=== PATIENT | female | born 1950 | race Caucasian/White ===

== ENCOUNTER 2019-10-01 06:27 | Inpatient (IN) | payer MEDICARE, OTHER, SELFPAY ==
[2019-10-01] VITALS (49 sets, daily range): BP systolic 86–191; BP diastolic 42–109; PULSE 68–117; RESP 12–27; TEMP 36.7–37.1; O2SAT 93–100
--- NOTE | 2019-10-01 06:35 | XR_ITS ---
WS: [id number] CHEST XRAY TECHNIQUE: Portable chest. CLINICAL INFORMATION: resp failure COMPARISON: August 22, 2018 FINDINGS: Endotracheal tube with tip above the marcy measuring 2.4 CCM. Enteric tube with tip below the diaphragm. Heart: Cardiomegaly. Aortic calcification. Lungs: Interstitial edema/interstitial infiltrates right greater than left. No focal consolidation or significant pleural fluid. Bones: Normal visualized bony structures. XR/XR chest 1V portable [id number] IMPRESSION: 1. Endotracheal tube 2.4 cm above the marcy. Enteric tube with tip below the diaphragm. 2. Right greater than left interstitial edema/interstitial infiltrates. Recomm end correlation for CHF. 3. No focal pneumonia.
--- NOTE | 2019-10-01 06:36 | ECG_ITS ---
Measurements Intervals [place] Rate: 69 P: 34 LA: 147 QRS: 9 QRSD: 158 T: 46 QT: 458 QTc: 491 SINUS RHYTHM INTRAVENTRICULAR CONDUCTION DELAY [130+ ms QRS DURATION] Compared to ECG 08/22/2018 17:11:35 Intraventricular conduction delay now present Myocardial infarct finding no longer present Electronically Signed On 10-01-2019 18:00:49 CDT by Evie Gaffney M.D. [id number]
--- NOTE | 2019-10-01 06:38 | W.ED.SOB ---
HPI - SOB/Dyspnea General: Chief Complaint: Shortness of Breath/Dyspnea Stated Complaint: RESP DISTRESS Time Seen by Provider: 10/01/19 06:35 History of Present Illness: HPI Narrative: Patient arrives via EMS. She reportedly went to a neighbor's home and said she could not breathe. Upon EMS arrival patient was breathing 10 times a minute and had an O2 sat in the 40s. A Jelco airway was put in place. Patient was orotracheally intubated upon arrival to the ER. Only other known history is chronic renal failure. MD elicited complaint: shortness of breath Pertinent past history: congestive heart failure and other (crf) Onset (ago): unknown Timing: constant and progressively worsening Severity: severe Exacerbating factors: lying flat, exertion, movement and talking Relieving factors: nothing Known history of: congestive heart failure and other (crf) Review of Systems General: Reports: ROS unobtainable due to endotracheal tube and ROS unobtainable due to medical condition PFSH ED PFSH: Social History Smoking and tobacco status: unknown if ever smoked Physical Exam HENMT: COMMON NORMALS: normocephalic HEAD & SCALP: normocephalic Neck/C-Spine: GENERAL: Yes JVD Resp: AUSCULTATION: wheezes Cardio: COMMON NORMALS: regular rhythm RATE: tachycardic RHYTHM: regular rhythm GI: COMMON NORMALS: Normal to inspection, nondistended, normoactive bowel sounds present Extremity: GENERAL: Yes edema Skin: COMMON NORMALS: no rashes or lesions noted, no jaundice and no mottling GENERAL SKIN EXAM: no rashes or lesions noted Course Vital Signs: Vital signs: Vital Signs Temperature 98.0 F 10/01/19 06:37 Pulse Rate 85 10/01/19 07:00 Respiratory Rate 14 10/01/19 07:00 Blood Pressure 145/64 10/01/19 07:00 Pulse Oximetry 98 10/01/19 07:00 MDM - SOB/Dyspnea Lab Data: Labs: Lab Results 10/01/19 10/01/19 10/01/19 Range/Units 06:43 06:43 06:43 WBC 35.9 H* (4.0-10.0) 10^3/ uL RBC 3.58 L (4.1-5.3) 10^6/u L Hgb 9.9 L (11.5-15.3) g/dL Hct 33.9 L (37.0-47.0) % MCV 94.7 (81-99) fL MCH 27.7 L (28.0-34.0) pg MCHC 29.2 L (30.0-36.0) g/dL RDW 15.1 (12.1-15.1) % Plt Count 484 H (130-400) 10^3/c mm MPV 9.9 (7.4-10.4) fL Neut % (Auto) 89.7 % Lymph % (Auto) 4.4 % [facility] % (Auto) 3.5 % Eos % (Auto) 0.1 % Baso % (Auto) 0.2 % Neut # (Auto) 32.2 H (1.8-7.7) 10^3/u L Lymph # (Auto) 1.6 (0.8-4.8) 10^3/u L [facility] # (Auto) 1.3 H (0.2-0.9) 10^3/u L Eos # (Auto) 0.0 (0.0-0.8) 10^3/u L Baso # (Auto) 0.1 (0.0-0.1) 10^3/u L Nucleated RBC % (a uto) 0 % Nucleated RBCs # 0.0 /100WBC Specimen Type Sample Site ABG pH (7.35-7.45) ABG pCO2 (35-45) mmHg ABG pO2 (80.0-100.0) mmH g ABG HCO3 (22-26) mmol/L ABG Base Excess (-2.0-2.0) mmol/ L Ming Test Hematocrit (37-47) % Hgb O2 Saturation (95-100) % Methemoglobin (0.4-1.5) % Total Hemoglobin (12-16) g/dL Respiration Rate % O2 Delivery Device FiO2 % Tidal Volume PEEP cmH20 Manufacturers Service Representative ID Sodium 139 (136-145) mmol/L Potassium 4.5 (3.5-5.1) mmol/L Chloride 101 (98-107) mmol/L Carbon Dioxide 19 L (22-29) mmol/L Anion Gap 23.5 H (5-19) BUN 82 H* (8-23) mg/dL Creatinine 4.2 H (0.5-0.9) mg/dL Glucose 373 H (65-115) mg/dL Calculated Osmolal ity 303 H (285-295) mOsm/k g Lactic Acid 4.1 H* (0.5-2.2) mmol/L Calcium 8.8 (8.5-10.5) mg/dL Total Bilirubin 0.3 (0.15-1.2) mg/dL AST 38 H (0-32) U/L ALT 20 (0-33) U/L Alkaline Phosphata se 65 (35-105) IU/L Ammonia (11-51) umol/L Troponin T Baselin e (0-10) ng/mL Troponin T 120 Min [place] (0-10) ng/mL NT-Pro-B Natriuret Pep 4474 H (0-125) pg/mL Total Protein 6.8 (6.6-8.7) g/dL Albumin 3.9 (3.5-5.2) g/dL Globulin 2.9 (1.3-4.6) g/dL Serum Ketones (Negative) Influenza Type A A g (Negative) Influenza Type B A g (Negative) 10/01/19 10/01/19 10/01/19 Range/Units 06:43 06:43 06:43 WBC (4.0-10.0) 10^3/ uL RBC (4.1-5.3) 10^6/u L Hgb (11.5-15.3) g/dL Hct (37.0-47.0) % MCV (81-99) fL MCH (28.0-34.0) pg MCHC (30.0-36.0) g/dL RDW (12.1-15.1) % Plt Count (130-400) 10^3/c mm MPV (7.4-10.4) fL Neut % (Auto) % Lymph % (Auto) % [facility] % (Auto) % Eos % (Auto) % Baso % (Auto) % Neut # (Auto) (1.8-7.7) 10^3/u L Lymph # (Auto) (0.8-4.8) 10^3/u L [facility] # (Auto) (0.2-0.9) 10^3/u L Eos # (Auto) (0.0-0.8) 10^3/u L Baso # (Auto) (0.0-0.1) 10^3/u L Nucleated RBC % (a uto) % Nucleated RBCs # /100WBC Specimen Type Sample Site ABG pH (7.35-7.45) ABG pCO2 (35-45) mmHg ABG pO2 (80.0-100.0) mmH g ABG HCO3 (22-26) mmol/L ABG Base Excess (-2.0-2.0) mmol/ L Ming Test Hematocrit (37-47) % Hgb O2 Saturation (95-100) % Methemoglobin (0.4-1.5) % Total Hemoglobin (12-16) g/dL Respiration Rate % O2 Delivery Device FiO2 % Tidal Volume PEEP cmH20 Manufacturers Service Representative ID Sodium (136-145) mmol/L Potassium (3.5-5.1) mmol/L Chloride (98-107) mmol/L Carbon Dioxide (22-29) mmol/L Anion Gap (5-19) BUN (8-23) mg/dL Creatinine (0.5-0.9) mg/dL Glucose (65-115) mg/dL Calculated Osmolal ity (285-295) mOsm/k g Lactic Acid (0.5-2.2) mmol/L Calcium (8.5-10.5) mg/dL Total Bilirubin (0.15-1.2) mg/dL AST (0-32) U/L ALT (0-33) U/L Alkaline Phosphata se (35-105) IU/L Ammonia 27 (11-51) umol/L Troponin T Baselin e 25 H (0-10) ng/mL Troponin T 120 Min [place] (0-10) ng/mL NT-Pro-B Natriuret Pep (0-125) pg/mL Total Protein (6.6-8.7) g/dL Albumin (3.5-5.2) g/dL Globulin (1.3-4.6) g/dL Serum Ketones Negative (Negative) Influenza Type A A g (Negative) Influenza Type B A g (Negative) 10/01/19 10/01/19 10/01/19 Range/Units 07:42 08:56 09:09 WBC (4.0-10.0) 10^3/ uL RBC (4.1-5.3) 10^6/u L Hgb (11.5-15.3) g/dL Hct (37.0-47.0) % MCV (81-99) fL MCH (28.0-34.0) pg MCHC (30.0-36.0) g/dL RDW (12.1-15.1) % Plt Count (130-400) 10^3/c mm MPV (7.4-10.4) fL Neut % (Auto) % Lymph % (Auto) % [facility] % (Auto) % Eos % (Auto) % Baso % (Auto) % Neut # (Auto) (1.8-7.7) 10^3/u L Lymph # (Auto) (0.8-4.8) 10^3/u L [facility] # (Auto) (0.2-0.9) 10^3/u L Eos # (Auto) (0.0-0.8) 10^3/u L Baso # (Auto) (0.0-0.1) 10^3/u L Nucleated RBC % (a uto) % Nucleated RBCs # /100WBC Specimen Type Arterial Sample Site Radial, right ABG pH 7.20 L (7.35-7.45) ABG pCO2 44.2 (35-45) mmHg ABG pO2 98.6 (80.0-100.0) mmH g ABG HCO3 17.2 L (22-26) mmol/L ABG Base Excess -10.5 L (-2.0-2.0) mmol/ L Ming Test Pos Hematocrit 36.5 L (37-47) % Hgb O2 Saturation 93.6 L (95-100) % Methemoglobin 2.4 H (0.4-1.5) % Total Hemoglobin 11.9 L (12-16) g/dL Respiration Rate 14.0 % O2 Delivery Device Vent FiO2 100.0 % Tidal Volume 0.55 PEEP 8.0 cmH20 Manufacturers Service Representative ID glc Sodium (136-145) mmol/L Potassium (3.5-5.1) mmol/L Chloride (98-107) mmol/L Carbon Dioxide (22-29) mmol/L Anion Gap (5-19) BUN (8-23) mg/dL Creatinine (0.5-0.9) mg/dL Glucose (65-115) mg/dL Calculated Osmolal ity (285-295) mOsm/k g Lactic Acid (0.5-2.2) mmol/L Calcium (8.5-10.5) mg/dL Total Bilirubin (0.15-1.2) mg/dL AST (0-32) U/L ALT (0-33) U/L Alkaline Phosphata se (35-105) IU/L Ammonia (11-51) umol/L Troponin T Baselin e (0-10) ng/mL Troponin T 120 Min [place] 80.16 H (0-10) ng/mL NT-Pro-B Natriuret Pep (0-125) pg/mL Total Protein (6.6-8.7) g/dL Albumin (3.5-5.2) g/dL Globulin (1.3-4.6) g/dL Serum Ketones (Negative) Influenza Type A A g Negative (Negative) Influenza Type B A g Negative (Negative) Discharge Plan Discharge Patient Disposition: Admitted As Inpatient Clinical Impression: Acute exacerbation of chronic obstructive airways disease Acute and chronic respiratory failure ([id number]) Qualifiers: Respiratory failure complication: hypoxia and hypercapnia Qualified Code(s): J96.21 - Acute and chronic respiratory failure with hypoxia Congestive heart failure Qualifiers: Heart failure type: unspecified Heart failure chronicity: chronic Qualified Code(s): I50.9 - Heart failure, unspecified Condition: Stable Referrals: Kishore Blackwood [Primary Care Provider] - Coding Level of Care Code ED Dental Internship for g Fwd Exam Detailed
[2019-10-01 06:59] LABS: Basophils # 0.1 10^3/uL (0.0-0.1); Basophils % 0.2 %; Eosinophils % 0.1 %; Hematocrit 33.9 % (37.0-47.0); Hemoglobin 9.9 g/dL (11.5-15.3); Lymphocytes # 1.6 10^3/uL (0.8-4.8); Lymphocytes % 4.4 %; Mean Corpuscular HGB Conc 29.2 g/dL (30.0-36.0); Mean Corpuscular Hemoglobin 27.7 pg (28.0-34.0); Mean Corpuscular Volume 94.7 fL (81-99); Mean Platelet Volume 9.9 fL (7.4-10.4); Monocytes # 1.3 10^3/uL (0.2-0.9); Monocytes % 3.5 %; Neutrophils # 32.2 10^3/uL (1.8-7.7); Neutrophils % 89.7 %; Nucleated Red Blood Cells % 0 %; Platelet Count 484 10^3/cmm (130-400); Red Blood Count 3.58 10^6/uL (4.1-5.3); Red Cell Distribution Width 15.1 % (12.1-15.1)
[2019-10-01 07:09] LABS: White Blood Count 35.9 10^3/uL (4.0-10.0)
[2019-10-01 07:13] LABS: Ammonia 27 umol/L (11-51)
[2019-10-01 07:15] LABS: Troponin(5th) Baseline 25 ng/mL (0-10)
[2019-10-01 07:26] LABS: Alanine Aminotransferase 20 U/L (0-33); Albumin Level 3.9 g/dL (3.5-5.2); Alkaline Phosphatase 65 IU/L (35-105); Anion Gap 23.5 (5-19); Aspartate Amino Transferase 38 U/L (0-32); Calcium 8.8 mg/dL (8.5-10.5); Carbon Dioxide 19 mmol/L (22-29); Chloride 101 mmol/L (98-107); Globulin 2.9 g/dL (1.3-4.6); Glucose 373 mg/dL (65-115); NT Pro B Type Natriuretic Pept 4474 pg/mL (0-125); Osmolality Calculated 303 mOsm/kg (285-295); Potassium 4.5 mmol/L (3.5-5.1); Sodium 139 mmol/L (136-145); Total Bilirubin 0.3 mg/dL (0.15-1.2); Total Protein 6.8 g/dL (6.6-8.7)
[2019-10-01 07:30] LABS: Blood Urea Nitrogen 82 mg/dL (8-23); Lactic Sepsis W/Reflex 4.1 mmol/L (0.5-2.2)
[2019-10-01] MEDS: propofol 1,000 MG/100 ML INJ 0.5 MG IV ×2 (07:58→15:24)
[2019-10-01] MEDS: piperacillin-tazobactam 4.5 GM in sodium chloride 0.9% (plus) 50 ML IV (07:58)
[2019-10-01 08:23] LABS: Influenza A by IFA Negative (Negative); Influenza B by IFA Negative (Negative)
--- NOTE | 2019-10-01 08:36 | XR_ITS ---
WS: [id number] CHEST XRAY TECHNIQUE: Portable chest. CLINICAL INFORMATION: tube placement COMPARISON: None. FINDINGS: Endotracheal tube with tip above the marcy. Enteric tube with tip below the diaphragm. Heart: Cardiomegaly. Lungs: Small bilateral pleural effusions right greater than left with interstitial infiltrates right greater than left. Bones: Normal visualized bony structures. XR/XR chest 1V portable [id number] IMPRESSION: 1. Small bilateral pleural effusions with bilateral interstitial edema/infiltr ates greater on the right. 2. Endotracheal tube with tip above the marcy. Enteric tube tip below diaphra gm.
--- NOTE | 2019-10-01 08:36 | ECG_ITS ---
Measurements Intervals [place] Rate: 77 P: 26 MS: 161 QRS: -25 QRSD: 155 T: 60 QT: 428 QTc: 487 SINUS RHYTHM LEFT BUNDLE BRANCH BLOCK [120+ ms QRS DURATION, 80+ ms Q/S IN V1/V2, 85+ ms R IN I/aVL/V5/V6] Compared to ECG 08/22/2018 17:11:35 Left bundle-branch block now present Myocardial infarct finding no longer present Electronically Signed On 10-01-2019 18:30:54 CDT by Evie Gaffney M.D. [id number]
[2019-10-01 08:37] LABS: Reflex Lactate Order REFLEX LACTIC ORDERD
[2019-10-01 09:20] LABS: ABG PCO2 44.2 mmHg (35-45); Arterial Blood Gas Hematocrit 36.5 % (37-47); Base Excess ABG -10.5 mmol/L (-2.0-2.0); Blood Gas Allen Test Pos; Blood Gas Operator Identificat glc; Blood Gas Sample Site Radial, right; Blood Gas Sample Type Arterial; Blood Gas Tidal Volume 0.55; HCO3 ABG 17.2 mmol/L (22-26); HGB O2 Sat 93.6 % (95-100); Methemoglobin 2.4 % (0.4-1.5); Oxygen Device VENT; PO2 ABG 98.6 mmHg (80.0-100.0); Total Hemoglobin 11.9 g/dL (12-16)
[2019-10-01 09:27] LABS: Troponin 5 2HR 80.16 ng/mL (0-10)
[2019-10-01 09:47] LABS: Ketone (Acetest) Serum Negative (Negative)
[2019-10-01 09:59] LABS: Troponin 5 2HR Delta 55.16 ABS# (0-10)
--- NOTE | 2019-10-01 10:06 | PC.NURSE ---
Attempted to call report to ICU. Nurse unavailable at this time to take report. ICU nurse will call this nurse when they are available.
--- NOTE | 2019-10-01 10:09 | PC.NURSE ---
Pt had a large BM. Nurse cleansed and dressed pt.
[2019-10-01] MEDS: ipratropium-albuterol 3 mL Neb INHALATION ×3 (11:17→20:37)
--- NOTE | 2019-10-01 11:32 | P.HP_ITS ---
Providers/Chief Complaint Admitting Physician: Lucia Hinse DO Primary Care Provider: Kishore Blackwood Chief Complaint: RESP FAILURE History of Present Illness Germaine Sumner is a 69 year old female that presented to the emergency department today for increasing shortness of breath. Discussed with patient's daughter and she reported that patient had been experiencing shortness of breath since approximately 7:00 last night. She stated that she was acting normal yesterday but today she was having significant distress. She called her sister at approximately 415 this morning and reported increased work of breathing. Patient was in the process of being brought to the emergency department by private vehicle when she developed worsening respiratory distress therefore EMS was called. It was reported that upon EMS arrival patient's oxygen saturation was in the 40s. Unable to obtain HPI from patient due to clinical condition, sedation and mechanical ventilation. Discussed with patient's daughter, Avani, she reported that she has been following with a clinical care coordinator for her chronic kidney disease and has been on the transplant list at [facility]. She states that she has hypertension and diabetes but she is uncertain of any home medications or any other medical diagnoses. She reports that patient has not had any recent travel other than to her primary care provider's office, she denies any known exposure to anyone with CO VID-19. She does not believe the patient has had any fevers or chills. Unable to obtain any further information Review of Systems General: Reports: ROS unobtainable due to endotracheal tube Medications/Allergies Home Medications Medication Instructions Recorded Confirmed Last Taken Type atenolol 25 mg PO DAILY 10/01/19 10/01/19 Unknown History Allergies Allergy/AdvReac Type Severity Reaction Status Date / Time No Known Allergies Allergy Verified 10/01/19 11:16 PFSH Acute PFSH: Medical History Chronic kidney disease Diabetes mellitus type 2, insulin dependent Hypertension Surgical History (Updated 10/01/19 @ 17:03 by Lucia Hines DO) History of cholecystectomy History of gastric bypass History of hemorrhoidectomy History of sinus surgery Status post insertion of dialysis catheter Peritoneal dialysis catheter placed by Dr. Orozco Family History (Updated 10/01/19 @ 17:03 by Lucia Hines DO) Mother Diabetes Congestive heart failure Father CAD (coronary artery disease) Social History Smoking and tobacco status: unknown if ever smoked Supplemental [facility] Information: Unable to obtain any additional past medical history, past surgical history or family or social history due to clinical condition Vitals/I&O/Wt Last Vital Signs Temp 98.0 F 10/01/19 06:37 Pulse 74 10/01/19 11:17 Resp 16 10/01/19 11:20 BP 131/63 10/01/19 10:13 Pulse Ox 98 10/01/19 11:17 Weight last 48 hrs Weight 79.379 kg Physical Exam Const: GENERAL APPEARANCE: patient mechanically ventilated HENMT: COMMON NORMALS: normocephalic and atraumatic Resp: OTHER: ET tube in place, mechanically ventilated, diminished breath sounds bilaterally with no wheezing or rhonchi Cardio: COMMON NORMALS: regular rate, regular rhythm and No murmurs present (Cardio) OTHER: Nonpitting edema in the lower extremities bilaterally GI: OTHER: Obese, soft, no rigidity, hypoactive bowel sounds : OTHER: Mcginnis catheter in place, no appreciable groin erythema or acute abn ormality Extremity: OTHER: Nonpitting edema in the lower extremities bilaterally, negative Homans sign in the lower extremities bilaterally Neuro: OTHER: Intubated, sedated Psych: OTHER: Intubated, sedated Skin: NARRATIVE SKIN EXAM: No appreciable rashes or lesions Urinary Catheter Management^: Mcginnis: Cath Placed During This Visit: yes Urinary Catheter Date of Insertion: 10/01/19 Urinary Catheter Time of Insertion: 07:09 Data : 10/01/19 06:43 10/01/19 06:43 Micro: Microbiology 10/01/19 06:43 Blood Culture - Preliminary Blood SPECIMEN COLLECTED 10/01/19 06:43 Blood Culture - Preliminary Blood SPECIMEN COLLECTED CXR: I personally reviewed and interpreted this imaging study as follows: Radiologist's impression: FINDINGS: Endotracheal tube with tip above the marcy measuring 2.4 CCM. Enteric tube with tip below the diaphragm. Heart: Cardiomegaly. Aortic calcification. Lungs: Interstitial edema/interstitial infiltrates right greater than left. No focal consolidation or significant pleural fluid. Bones: Normal visualized bony structures. XR/XR chest 1V portable [id number] IMPRESSION: 1. Endotracheal tube 2.4 cm above the marcy. Enteric tube with tip below the diaphragm. 2. Right greater than left interstitial edema/interstitial infiltrates. Recommend correlation for CHF. 3. No focal pneumonia. KUB: I personally reviewed and interpreted this imaging study as follows: Radiologist's impression: Impression: 1. Air distended distal stomach with relative paucity of gas in the GI tract. No significant bowel distention. 2. Enteric tube with tip in the proximal stomach. 3. Osteopenia. A&P Assessment and plan (1) Sepsis: With concern for pneumonia We will continue with broad-spectrum antibiotics at this time Patient is also had diarrhea with C. difficile toxin pending Lactic acidosis also present, blood pressure remained stable at this time we will continue with IV fluids. Blood culture, urine culture pending Status: Acute (2) Lactic acidosis: Secondary to above along with metabolic acidosis with acute on chronic kidney injury Blood pressure remained stable at this time, Will continue with IVF and monitor fluid balance closely. Repeat ABG and will increase respiratory rate to compensate for metabolic acidosis Status: Acute (3) Pneumonia: Family denies any recent hospitalizations due to severity of patient's illness will continue on broad-spectrum antibiotics with vancomycin and Zosyn Repeat ABG and continue with mechanical ventilation at this time Status: Acute (4) Acute kidney injury: Patient with acute kidney injury in the setting of chronic kidney disease She has been followed by Dr. Dorsey in the outpatient setting and has been on the kidney transplant list at [facility] Patient has peritoneal dialysis catheter that was [place] [address] Orozco. Patient will likely require dialysis during this admission, will nephrology, Dr. Jo, consulted. Appreciate recommendations and assistance in patient's care Caution with nephrotoxic agents Status: Acute (5) Diabetes mellitus type 2, insulin dependent: Family is uncertain if patient has been on insulin therapy No med reconciliation available We will continue on sliding scale insulin Serum ketones negative, patient is not in diabetic ketoacidosis Status: Acute (6) Hypertension: Hold off on any antihypertensives at this time Status: Acute (7) Anemia: Patient has a hemoglobin of 9.9, on hemoglobin check from 1 year ago was 12.8. No evidence of any active bleeding at this time, no reported melanotic stools from family and just having diarrhea at this point with no reported frederick na or hematochezia. Will check further iron studies. Hold off on any DVT prophylaxis or any further anticoagulation Status: Acute (8) Elevated d-dimer: She has elevated d-dimer in the setting of sepsis and acute on chronic renal failure. No evidence of any DVT at this time, patient did present hypoxic, however with her acute on chronic kidney injury unable to perform CTA. Will check DIC panel. Hold off on anticoagulation at this time due to concurrent anemia and believe this is related to sepsis and renal failure Status: Acute (9) Metabolic acidosis: Increased respiratory rate on mechanical ventilation to compensate Continue to treat sepsis and acute on chronic renal failure as above Status: Acute (10) Diarrhea: Diffuse diarrhea with gluteal erythema reported by RN. C. difficile toxin ordered and pending Status: Acute (11) Non-ST elevation MS (NSTEMI): Believed type II process due to above. We will continue to monitor closely on telemetry with serial EKG and troponin. Echocardiogram ordered and pending Status: Acute (12) Chronic kidney disease: Followed by Dr. Dorsey. Had peritoneal dialysis catheter placed in 2018. Currently on the transplant list at [facility]. Will likely require dialysis during this admission, will follow up with nephrology recommendations. Status: Acute Additional A&P Information Patient presented with acute respiratory failure requiring intubation and mechanical ventilation: Remains intubated and sedated on propofol at this time, continue to wean vent as tolerated, increased respiratory rate to compensate for metabolic acidosis. We will continue on broad-spectrum antibiotic coverage as above. Patient was tested for CO VID-19 while in the emergency department will remain on isolation and droplet precautions with airborne precautions as indicated Due to patient having diffuse diarrhea with metabolic acidosis and lactic acidosis will further evaluate with CT scan of the abdomen and pelvis. Patient remains critically ill and requires close monitoring in the ICU Diet: N.p.o. GI prophylaxis: Protonix DVT prophylaxis: SCDs, no pharmacologic prophylaxis due to concern for anemia Code status: Full code Attestations Medical Necessity Statement*: Patient remains critically ill and requires close monitoring in the ICU. This due to sepsis secondary to pneumonia, acute on chronic renal failure metabolic acidosis. Expected stay greater than 2 midnights Coding Level of Care Code Acute Temporary Receptionist for Chg Fwd Exam Expanded Problem Focused Diagnoses Sepsis A41.9 Lactic acidosis E87.2 Pneumonia J18.9 Acute kidney injury N17.9 Diabetes mellitus type 2, insulin dependent E11.9; Z79.4 Hypertension I10 Anemia D64.9 Elevated d-dimer R79.89 Metabolic acidosis E87.2 Diarrhea R19.7 Non-ST elevation MS (NSTEMI) I21.4 Chronic kidney disease N18.9
[2019-10-01 11:42] LABS: Add Urine Microscopic? YES; Bilirubin Urine Neg (NEGATIVE); Blood Urine 2+ (Negative); Glucose Urine UA 2+ (Normal); Ketones Urine Negative (Negative); Leukocyte Esterase Urine Trace (Negative); Nitrate Urine Negative (Negative); Protein Urine 3+ (Negative); Specific Gravity, Urine 1.015 (1.005-1.030); Urine Appearance Clear (CLEAR); Urine Color Yellow (Yellow); Urobilinogen Urine Norm (Negative)
[2019-10-01 11:43] LABS: Add Urine Culture? Yes; Bacteria Urine 3+; Mucus Urine 1+; RBC Urine 0-4 /hpf (0-2); Squamous Epithelial Cell Urine 0-4 (0-5)
[2019-10-01 11:45] LABS: Lactic Acid level (Lactate) 4.6 mmol/L (0.5-2.2)
--- NOTE | 2019-10-01 11:45 | XR_ITS ---
WS: [id number] ABDOMEN KUB CLINICAL INFORMATION: Abdominal pain COMPARISON: None. FINDINGS: Osteopenia. Mild degenerative arthritis both hips with joint space narrowing. Normal visualized pubic rami. No visualized fractures. Tubing projected over the pelvis. Enteric tube with tip in the stomach. Cholecystectomy clips. Air distended distal stomach. Relative p aucity of gas in the GI tract.No significant bowel distention. XR/XR KUB portable [id number] Impression: 1. Air distended distal stomach with relative paucity of gas in the GI tract. No significant bowel distention. 2. Enteric tube with tip in the proximal stomach. 3. Osteopenia.
[2019-10-01 12:30] LABS: Lipase 130 U/L (13-60)
--- NOTE | 2019-10-01 12:36 | ECG_ITS ---
Measurements Intervals [place] Rate: 84 P: 38 [place]: 150 QRS: -9 QRSD: 168 T: 69 QT: 430 QTc: 511 SINUS RHYTHM LEFT BUNDLE BRANCH BLOCK [120+ ms QRS DURATION, 80+ ms Q/S IN V1/V2, 85+ ms R IN I/aVL/V5/V6] Compared to ECG 08/22/2018 17:11:35 Left bundle-branch block now present Myocardial infarct finding no longer present Electronically Signed On 10-01-2019 18:32:00 CDT by Evie Gaffney M.D. [id number]
[2019-10-01 12:54] LABS: Troponin 5 6HR 138.2 ng/mL (0-10)
[2019-10-01 12:55] LABS: Troponin 5 6HR Delta 113.2 ng/L (0-12)
[2019-10-01 13:06] LABS: D Dimer 5.14 ug/mIFEU (0-0.59)
--- NOTE | 2019-10-01 15:26 | P.CONIM_ITS ---
Providers/Reason For Consult Consulting Physican/Specialty*: Dr Jo, Nephrology Reason for Consult*: Eval for SISSY on CKD Attending Physician: Lucia Hines DO Primary Care Provider: Kishore Blackwood History of Present Illness History of Present Illness Germaine Sumner is a 69 year old female presenting with severe hypoxemic respiratory arrest. She went to a friends, became increasingly SOB, EMT were called, she was saturating at 40-50%. She was subsequently intubated and [place] vented and admitted to our ICU. She is currently on COVID rule out. She has received Abx inc Zosyn. She is well known to Dr Dorsey with CKD stage 5, eGFR 11, creatinine 3.9mg/dL back on 09/19. PD Cath was placed and buried 3 years ago but she has not had an indication for externalization and initiation yet. 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 No pressors. No ivf. She has had diarrhea pretty significantly since arrival. Perianal erthema per RN. She has chronic LE edema. Mcginnis; 100ml sent down to lab. Review of Systems General: Reports: ROS unobtainable due to mental status Meds/Allergies Home Medications and Allergies Home Medications Medication Instructions Recorded Confirmed Last Taken Type atenolol 25 mg PO DAILY 10/01/19 10/01/19 Unknown History Allergies Allergy/AdvReac Type Severity Reaction Status Date / Time No Known Allergies Allergy Verified 10/01/19 11:16 Current Medications Current Medications Generic Name Dose Route Start Last Admin Trade Name Freq PRN Reason Stop Dose Admin Albuterol/Ipratropium 3 ml 10/01/19 12:00 10/01/19 15:03 Duoneb INHALATION 3 ml QID.RESPIRATORY ARMANI Administration Propofol 1,000 mg in 100 mls @ 0 mls/hr 10/01/19 07:00 10/01/19 15:24 Diprivan IV 1.05 mcg/kg/min .Q0M ARMANI 0.5 mls/hr Administration Protocol Per Protocol PFSH Acute PFSH: Social History Smoking and tobacco status: unknown if ever smoked Vitals/I&O/Wt Last Vital Signs Temp 98.0 F 10/01/19 06:37 Pulse 72 10/01/19 15:04 Resp 14 10/01/19 15:08 BP 123/78 10/01/19 14:00 Pulse Ox 97 10/01/19 15:04 10/01/19 10/01/19 10/01/19 06:59 14:59 22:59 Intake Total 3.717 / 3.717 Output Total 100 / 100 Balance -100 / -100 3.717 / -96.283 Weight last 48 hrs Weight 79.379 kg Physical Exam Narrative: EXAM NARRATIVE: Exam performed over telemed, with the assistance of the bedside RN Const: COMMON NORMALS: no acute distress GENERAL APPEARANCE: patient mechanically ventilated Neck/C-Spine: COMMON NORMALS: no JVD Chest: COMMONS NORMALS: normal inspection of the chest Resp: COMMON NORMALS: No retractions and No use of accessory muscles AUSCULTATION: diminished lung sounds Cardio: COMMON NORMALS: no JVD, regular rate, S1 normal heart sound present and S2 normal heart sound present RATE: regular rate HEART SOUNDS: S1 normal heart sound present and S2 normal heart sound present GI: COMMON NORMALS: Normal to inspection, nondistended, normoactive bowel sounds present Neuro: LINDY COMA SCALE: other (sedated in the ICU. She is responding appr opriately by nodding to questions ) Urinary Catheter Management^: Mcginnis: Cath Placed During This Visit: yes Urinary Catheter Date of Insertion: 10/01/19 Urinary Catheter Time of Insertion: 07:09 Data Micro: Micro: Microbiology 10/01/19 06:43 Blood Culture - Pr eliminary Blood SPECIMEN MATTHEW NAVARRETE 10/01/19 06:43 Blood Culture - Pr eliminary Blood SPECIMEN [facility] [place] [facility] A&P Additional A&P Information 1. SISSY on CKD stage 5 - She has been teetering on the edge of ESRD for some time, with baseline creatinine of 3.9mg/dL, eGFR 11 - Creatinine now elevated but she is making some urine - Likely to be infection/hypoxic assoc ATN; hopefully there is a pre-renal element also - No indication for dialysis at this time but given her minimal reserve she is very likely to need dialysis in the next 24-48hrs - am labs - supportive care, ivf, pressors as needed - avoid the usuals - w/u to include CPK, TSH, urine sodium, creatinine, urea - if dialysis is indicated I would prefer to externalize the PD cath with plan to attempt to use this prior to placement of a hemodialysis line 2. Hypoxic resp failure - intubated and vented; mgmt per Dr Hines and Dr Mello - on Zosyn - COVID r/o - weaning over the next few days 3. Lytes - uncompensated met acidosis on ABG; to increase CO2 expulsion on the vent per Dr Mello 4. 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
[2019-10-01 16:21] LABS: Lactic Sepsis W/Reflex 5.7 mmol/L (0.5-2.2)
--- NOTE | 2019-10-01 16:24 | PC.NURSE ---
Let primary nurse know lactic results.
[2019-10-01 16:39] LABS: Glucose Point of Care 295 mg/dL (70-110)
--- NOTE | 2019-10-01 16:55 | CTR_ITS ---
PROCEDURE INFORMATION: Exam: CT Chest Without Contrast Exam date and time: 10/01/2019 12:26 AM Age: 69 years old Clinical indication: Prior surgery; Surgery type: Peritoneal tube. Gb. ; Patient HX: Persistent hypoxia and pneumonia. History of renal disease. ; Additional info: Hypoxia, pneumonia TECHNIQUE: Imaging protocol: Computed tomography of the chest without contrast. Radiation optimization: All CT scans at this facility use at least one of these dose optimization techniques: automated exposure control; mA and/or kV adjustment per patient size (includes targeted exams where dose is matched to clinical indication); or iterative reconstruction. COMPARISON: US Renal Kidney Structu* [id number] 02/12/2017 12:35 PM RADIATION DOSE METRICS: Total DLP: 1990.78 mGy-cm FINDINGS: Tubes, catheters and devices: The endotracheal tube tip lies 1 cm above the marcy and is directed toward the right mainstem bronchus. The nasogastric tube is positioned in the stomach, well beyond the diaphragmatic hiatus. The tip is not imaged. Lungs: There is diffuse opacification of the dependent portions of the lower lobes bilaterally. Air bronchograms are present. There is a calcified granuloma in the right middle lobe. There is no consolidation the anterior aspect of the lungs. Pleural space: Small bilateral pleural effusions. There is no pneumothorax. Heart: Heart size is normal. There is mild coronary artery calcification. There is no pericardial effusion. Aorta: There is mild aortic atherosclerotic disease. Lymph nodes: There are calcified upper mediastinal lymph nodes. No enlarged mediastinal lymph nodes. Bones/joints: Bones are unremarkable. Soft tissues: The extrathoracic soft tissues are unremarkable. IMPRESSION: 1. Dependent opacity in both lower lobes. This is due at least in part atelectasis. Superimposed infectious consolidation may be present. 2. Borderline low position of the endotracheal tube. Endotracheal tube tip 1 cm above the marcy. 3. NG tube is in the stomach. The tip is not imaged. 4. Incidental findings above. PROCEDURE INFORMATION: Exam: CT Abdomen And Pelvis Without Contrast Exam date and time: 10/01/2019 12:26 AM Age: 69 years old Clinical indication: Prior surgery; Surgery type: Peritoneal tube. Gb. ; Patient HX: Persistent hypoxia and pneumonia. History of renal disease. ; Additional info: Hypoxia, pneumonia TECHNIQUE: Imaging protocol: Computed tomography of the abdomen and pelvis without contrast. Radiation optimization: All CT scans at this facility use at least one of these dose optimization techniques: automated exposure control; mA and/or kV adjustment per patient size (includes targeted exams where dose is matched to clinical indication); or iterative reconstruction. COMPARISON: US Renal Kidney Structu* [id number] 02/12/2017 12:35 PM RADIATION DOSE METRICS: Total DLP: 1990.78 mGy-cm FINDINGS: Tubes, catheters and devices: There is a peritoneal drain positioned in the deep pelvis. The tubing is blind-ending in the subcutaneous fat of the right mid abdominal wall. The nasogastric tube is appropriately positioned with the tip in the stomach, well beyond the diaphragmatic hiatus. Liver: There are scattered calcifications in the right lobe of the liver suggesting healed granulomas. The liver parenchyma is otherwise normal. Gallbladder and bile ducts: The gallbladder is absent. There is moderate dilation of the common bile duct and central intrahepatic ducts. Pancreas: There is mild atrophy of the pancreas. Spleen: Splenic size is normal. There are scattered calcifications consistent with healed granulomas. Adrenals: The adrenal glands are unremarkable. Kidneys and ureters: Multifocal bilateral renal cortical scarring and mild renal atrophy. No hydronephrosis or stones. Bilateral renal vascular calcification is present. There is mild bilateral perinephric fat stranding. Stomach and bowel: There is a Owen-en-Y gastric bypass without apparent complications. The small bowel is nondilated. There is no sign of inflammation. There is pancolonic diverticulosis. There is no sign of diverticulitis. Appendix: The appendix is absent. Intraperitoneal space: There is no free air or significant intraperitoneal free fluid. Vasculature: There is moderate aortic atherosclerotic disease. There is no aortic aneurysm. Lymph nodes: There is no lymphadenopathy in the retroperitoneum, mesentery, pelvis or inguinal regions. Bladder: The Mcginnis catheter is appropriately positioned with the bulb and tip within the bladder lumen. The urinary bladder is decompressed, preventing meaningful evaluation of wall thickness. Reproductive: The uterus is unremarkable. There is no adnexal mass or large cyst. Bones/joints: There is moderate degenerative disease in the lumbar spine. The pelvis and hips are unremarkable. Soft tissues: The abdominal wall is intact. CT/CT chest abd pel wo con IMPRESSION: 1. No acute findings. 2. Incidental findings above. Radiation Dose CTDIVOL = (mGy): DLP = 1989.78~1989. (mGy-cm)
[2019-10-01] MEDS: vancomycin 1,000 MG in sodium chloride 0.9% 250 ML 250 MG IV (17:08)
[2019-10-01] MEDS: sodium chloride 0.9% 1,000 ML 150 ML IV (17:10)
[2019-10-01 17:40] LABS: Creatine Phosphokinase 93 U/L (26-192); Thyroid Stimulating Hormone 5.12 uIU/mL (0.27-4.20)
[2019-10-01 18:14] LABS: Urine Creatinine 107 mg/dL (28-217); Urine Random Sodium 34 mmol/L
[2019-10-01 18:26] LABS: Estmated Average Glucose 154
[2019-10-01 18:29] LABS: ABG PCO2 36.5 mmHg (35-45); ABG PH Result 7.33 (7.35-7.45); Arterial Blood Gas Hematocrit 27.2 % (37-47); Blood Gas Allen Test Pos; Blood Gas Sample Site Brachial, right; Blood Gas Sample Type Arterial; Blood Gas Tidal Volume 0.5; HCO3 ABG 19.3 mmol/L (22-26); PO2 ABG 89.1 mmHg (80.0-100.0)
[2019-10-01 19:45] LABS: INR 1.25 (0.8-1.2)
[2019-10-01 19:46] LABS: Partial Thromboplastin Time 24.5 SECONDS (23.9-36.7)
[2019-10-01 19:49] LABS: D Dimer 2.51 ug/mIFEU (0-0.59)
[2019-10-01 19:52] LABS: Fibrinogen 486 mg/dL (184-529)
[2019-10-01 19:54] LABS: Alanine Aminotransferase 15 U/L (0-33); Albumin Level 2.6 g/dL (3.5-5.2); Alkaline Phosphatase 44 IU/L (35-105); Anion Gap 21.1 (5-19); Aspartate Amino Transferase 21 U/L (0-32); Blood Urea Nitrogen 78 mg/dL (8-23); Calcium 7.2 mg/dL (8.5-10.5); Carbon Dioxide 15 mmol/L (22-29); Chloride 108 mmol/L (98-107); Globulin 3.1 g/dL (1.3-4.6); Glucose 207 mg/dL (65-115); Iron 9 ug/dL (37-145); Osmolality Calculated 296 mOsm/kg (285-295); Percent Saturation 3.1 % (20-50); Potassium 4.1 mmol/L (3.5-5.1); Sodium 140 mmol/L (136-145); Total Bilirubin 0.2 mg/dL (0.15-1.2); Total Iron Binding Capacity 284 mcg/dl; Total Protein 5.7 g/dL (6.6-8.7); Unsaturated Iron Binding 275 ug/dL (112-347)
[2019-10-01 20:09] LABS: Vitamin B12 620 pg/mL (232-1245)
[2019-10-01 20:36] LABS: Folate Level > 20.0 ng/mL (4.8-37.3)
[2019-10-01] MEDS: propofol 1,000 MG/100 ML INJ 14.3 MG IV (21:44)
[2019-10-01] MEDS: piperacillin-tazobactam 3.375 GM in sodium chloride 0.9% (plus) 50 ML IV (21:45)
[2019-10-01 22:02] LABS: Glucose Point of Care 172 mg/dL (70-110)
[2019-10-01 22:35] LABS: Urea Nitrogen,Urine Random 653 mg/dL
[2019-10-02] VITALS (35 sets, daily range): BP systolic 130–187; BP diastolic 53–89; PULSE 59–97; RESP 13–18; TEMP 36.8; O2SAT 92–100; BMI 28.2
[2019-10-02 04:46] LABS: Basophils % 0.2 %; Eosinophils % 0.1 %; Hematocrit 25.8 % (37.0-47.0); Hemoglobin 7.8 g/dL (11.5-15.3); Lymphocytes # 1.2 10^3/uL (0.8-4.8); Lymphocytes % 9.3 %; Mean Corpuscular HGB Conc 30.2 g/dL (30.0-36.0); Mean Corpuscular Hemoglobin 27.5 pg (28.0-34.0); Mean Corpuscular Volume 90.8 fL (81-99); Monocytes # 0.5 10^3/uL (0.2-0.9); Monocytes % 4.3 %; Neutrophils # 10.7 10^3/uL (1.8-7.7); Neutrophils % 85.8 %; Nucleated Red Blood Cells % 0 %; Platelet Count 337 10^3/cmm (130-400); Red Blood Count 2.84 10^6/uL (4.1-5.3); Red Cell Distribution Width 15.6 % (12.1-15.1); White Blood Count 12.5 10^3/uL (4.0-10.0)
[2019-10-02] MEDS: sodium chloride 0.9% 1,000 ML 150 ML IV (05:03)
[2019-10-02 05:05] LABS: Alanine Aminotransferase 15 U/L (0-33); Alkaline Phosphatase 48 IU/L (35-105); Anion Gap 19.5 (5-19); Aspartate Amino Transferase 18 U/L (0-32); Calcium 8.4 mg/dL (8.5-10.5); Carbon Dioxide 18 mmol/L (22-29); Chloride 108 mmol/L (98-107); Globulin 3.2 g/dL (1.3-4.6); Glucose 132 mg/dL (65-115); Osmolality Calculated 294 mOsm/kg (285-295); Potassium 4.5 mmol/L (3.5-5.1); Sodium 141 mmol/L (136-145); Total Bilirubin 0.3 mg/dL (0.15-1.2); Total Protein 6.2 g/dL (6.6-8.7)
[2019-10-02 05:27] LABS: Blood Urea Nitrogen 90 mg/dL (8-23)
[2019-10-02 07:32] LABS: Glucose Point of Care 117 mg/dL (70-110)
[2019-10-02] MEDS: ipratropium-albuterol 3 mL Neb INHALATION ×4 (08:10→19:39)
[2019-10-02] MEDS: pantoprazole 40 mg SDV IVP (08:30)
[2019-10-02] MEDS: piperacillin-tazobactam 3.375 GM in sodium chloride 0.9% (plus) 50 ML IV ×2 (08:31→20:46)
[2019-10-02] MEDS: propofol 1,000 MG/100 ML INJ 14.3 MG IV (09:32)
--- NOTE | 2019-10-02 09:51 | PM.PN ---
Subjective Subjective: Interval history: Chart reviewed, remains sedated and on mechanical ventilation, had 375 mL urine output overnight. Noted decreased leukocytosis from 39.5->12.5, drop in hemoglobin from 9.9->7.8. Some improvement in creatinine though increased BUN. COVID-19 and C. difficile negative, discontinue isolation precautions. Down to FiO2 of 40%. Patient seen several times today, initially seen this morning while on vent support and sedation with propofol. IVF rate decreased per nephrology recommendations. Will work on weaning off vent. Patient did well with weaning trial and was successfully extubated this afternoon. Awake, alert, oriented x3. Does have some mild throat discomfort though able to take sips and chips without difficulty. Medications: Reviewed: Yes Medication Review Details: Active Medications Generic Name Dose Route Start Last Admin Trade Name Freq PRN Reason Stop Dose Admin Acetaminophen 650 mg 10/01/19 15:55 Tylenol PO Q6H PRN MILD PAIN Albuterol/Ipratrop ium 3 ml 10/01/19 09:33 Duoneb INHALATION Q6H PRN SHORTNESS OF LAVELL TH Albuterol/Ipratrop ium 3 ml 10/01/19 12:00 10/02/19 08:10 Duoneb INHALATION 3 ml QID.RESPIRATORY S CH Administration Dextrose 25 ml 10/01/19 16:00 D50w IVP ONCE PRN hypoglycemia prot ocol Protocol Dextrose 50 ml 10/01/19 16:00 D50w IVP PRN PRN hypoglycemia prot ocol Protocol Glucagon 1 mg 10/01/19 16:00 Glucagen IM ONCE PRN Adult Acute Hypog lycemia Prot. Protocol Propofol 1,000 mg in 100 m ls @ 0 mls/hr 10/01/19 07:00 10/02/19 09:32 Diprivan IV 30 mcg/kg/min .Q0M ARMANI 14.3 mls/hr Administration Protocol Per Protocol Piperacillin Sod/T azobactam 50 mls @ 12.5 mls /hr 10/01/19 19:00 10/02/19 08:31 Sod 3.375 gm/ So dium Chloride IV 12.5 mls/hr Q12H ARMANI Administration Protocol Sodium Chloride 1,000 mls @ 150 m ls/hr 10/01/19 16:00 10/02/19 05:03 Sodium Chloride 0.9% IV 150 mls/hr .Q6H40M ARMANI Administration Vancomycin HCl 1,0 00 mg/ 250 mls @ 250 mls /hr 10/01/19 17:30 10/01/19 21:05 Sodium Chloride IV Infused Q56H ARMANI Infusion Protocol Dextrose 500 mls @ 100 mls /hr 10/01/19 16:00 D5w IV ONCE PRN Adult Acute Hypog lycemia Prot Protocol Insulin Aspart 0 unit 10/01/19 21:00 10/01/19 22:00 Novolog SUBCUT 2 unit BEDTIME ARMANI Administration Protocol Insulin Aspart 0 unit 10/01/19 18:00 10/02/19 07:35 Novolog SUBCUT Not Given TIDWM ARMANI Protocol Ondansetron HCl 4 mg 10/01/19 15:55 Zofran IVP Q6H PRN NAUSEA AND VOMITI NG Pantoprazole Sodiu m 40 mg 10/02/19 09:00 10/02/19 08:30 Protonix IVP 40 mg DAILY ARMANI Administration No Known Allergies Allergy (Verified 10/01/19 11:16) Vitals/I&O/Wt Last Vital Signs Temp 98.8 F 10/01/19 20:00 Pulse 65 10/02/19 08:21 Resp 14 10/02/19 08:15 BP 136/62 10/02/19 08:00 Pulse Ox 100 10/02/19 08:15 10/01/19 10/02/19 10/02/19 22:59 06:59 14:59 Intake Total 306.884 / 899.618 5288 / 1456.884 Output Total 200 / 300 375 / 675 Balance 106.884 / 6.884 775 / 781.884 Weight last 48 hrs Weight 79.379 kg Weight 79.379 kg Weight 79.379 kg Physical Exam Const: COMMON NORMALS: no acute distress GENERAL APPEARANCE: comfortable and patient mechanically ventilated NUTRITIONAL APPEARANCE: overweight ORIENTATION/CONSCIOUSNESS: Yes Other orientation findings (sedated) HENMT: COMMON NORMALS: normocephalic, atraumatic and hearing grossly normal bilaterally HEAD & SCALP: normocephalic and atraumatic MOUTH: other (OGT and orally intubated; ETT-23 cm at lip) Eye: COMMON NORMALS: Equal, round and reactive pupils present, EOMs intact bilaterally and conjunctivae normal CONJUNCTIVA: Yes conjunctivae normal PUPIL: Yes Equal, round and reactive pupils present Neck/C-Spine: GENERAL: Yes normal visual inspection and Yes trachea midline Chest: CHEST: Yes Symmetrical chest wall rise Resp: COMMON NORMALS: normal respiratory effort, No retractions and No use of accessory muscles EFFORT & INSPECTION: Yes symmetric chest movement and No tachypneic AUSCULTATION: diminished lung sounds bilateral OTHER: -on vent support (30%/500/8), RR-14 Cardio: COMMON NORMALS: regular rate, regular rhythm, S1 normal heart sound present, S2 normal heart sound present and No murmurs present (Cardio) RATE: regular rate RHYTHM: regular rhythm HEART SOUNDS: S1 normal heart sound present and S2 normal heart sound present GI: COMMON NORMALS: Normal to inspection, nondistended, normoactive bowel sounds present and Soft to palpation INSPECTION: Yes central obesity PALPATION: Yes Soft to palpation : BLADDER/KIDNEY EXAM: Yes catheter in place Catheter type (Female): urethral Extremity: COMMON NORMALS: normal to inspection, no clubbing, cyanosis or edema and no pedal edema Neuro: OTHER: -sedated Psych: OTHER: -sedated Skin: COMMON NORMALS: no rashes or lesions noted, no jaundice, no petechiae and no mottling GENERAL SKIN EXAM: no rashes or lesions noted Urinary Catheter Management^: Mcginnis: Cath Placed During This Visit: yes Urethral Indwelling: Yes Reason for Continuing Indwelling Catheter: Accurate Measurement of Urinary Output in Critically Ill Patients Urinary Catheter Date of Insertion: 10/01/19 Urinary Catheter Time of Insertion: 07:09 Data : 10/02/19 04:15 10/02/19 04:15 Micro: Microbiology 10/01/19 06:43 Blood Culture - Preliminary Blood NEGATIVE TO DATE 10/01/19 06:43 Blood Culture - Preliminary Blood NEGATIVE TO DATE 10/01/19 11:00 C.difficile Toxin B Gene (PCR) - Final Stool 10/01/19 09:00 Gram Stain - Final Sputum - Endotracheal Tube Aspirate A&P Assessment and plan (1) Acute and chronic respiratory failure ([id number]): -Due to significant respiratory distress patient was intubated in the field by EMS -Remains on mechanical ventilation, wean as tolerated; sedation while on vent -Imaging reviewed with noted bilateral interstitial edema/infiltrates, worse on the right -Associated sepsis as noted below with significant lactic acidosis, significant leukocytosis with neutrophilic predominance, hypoxia -Daily ABG, chest x-ray while on mechanical ventilation -Continue broad-spectrum IV antibiotics with vancomycin/Zosyn, both renally dosed due to underlying renal impairment -Leukocytosis is improving, continue to trend WBC -Lactic acidosis is also improving -Vital signs stable, continue to monitor -IV fluid hydration -Sputum culture pending, gram stain shows moderate WBCs, few GPC -Blood cx: prelim negative -NPO -COVD-19 negative, d/c isolation precautions Status: Acute Qualifiers: Respiratory failure complication: hypoxia and hypercapnia Qualified Code(s): J96.21 - Acute and chronic respiratory failure with hypoxia; J96.22 - Acute and chronic respiratory failure with hypercapnia (2) Sepsis: -as evidenced by lactic acidosis, leukocytosis, hypoxia, SISSY Status: Acute Qualifiers: Acute respiratory failure type: with hypoxia Sepsis acute organ dysfunction status: with acute organ dysfunction Sepsis type: sepsis due to unspecified organism Severe sepsis acute organ dysfunction type: acute respiratory failure Severe sepsis shock status: without septic shock Qualified Code(s): A41.9 - Sepsis, unspecified organism; R65.20 - Severe sepsis without septic shock; J96.01 - Acute respiratory failure with hypoxia (3) Lactic acidosis: -as noted above -improving Status: Acute (4) Acute kidney injury: -SISSY on CKD stage 5 -has PD catheter in place, not used (placed on 06/2017) -Nephrology evaluation by Dr. Jo appreciated; no need for emergent dialysis currently -continue to monitor urine output, has Mcginnis catheter -renal US pending -noted bilateral renal cortical scarring, mild renal atrophy, mild bilateral perinephric fat stranding; no hydronephrosis on CT -avoid nephrotoxins, renally dose meds -follows up with Dr. Dorsey, is on renal [facility] at [facility] Status: Acute (5) Metabolic acidosis: -Noted elevated anion gap metabolic acidosis likely secondary to lactic acidosis, acute infection with sepsis and renal impairment -Anion gap improved today -on IVF and vent -repeat ABG ordered this AM Status: Acute (6) Non-ST elevation SC (NSTEMI): -suspect this is secondary to demand ischemia in light of acute infection with noted significant renal impairment -Echo ordered; last on record done in 02/2017 showing EF=60%, G1DD, mild pulmonary HTN, mild TR, moderate MR -telemetry monitoring Status: Acute (7) Diarrhea: -C.difficile negative, discontinue contact isolation precautions Status: Acute Qualifiers: Diarrhea type: unspecified type Qualified Code(s): R19.7 - Diarrhea, unspecified (8) Elevated d-dimer: -D-dimer-2.51 -no CTA PE due to renal impairment -on vent support so hold off on V/Q scan -not a good candidate for AC due to anemia -DIC panel negative Status: Acute (9) Anemia: -acute on chronic anemia of chronic disease secondary to CKD -baseline Hg appears to be wnl based on last Hg in 2018 of 12.5 -iron very low -continued drop in Hg though dilutional component due to IVF -continued close monitoring of Hg Status: Acute Qualifiers: Anemia type: due to chronic kidney disease Chronic kidney disease stage: stage 5, not on chronic dialysis Qualified Code(s): N18.5 - Chronic kidney disease, stage 5; D63.1 - Anemia in chronic kidney disease (10) Hypertension: -normotensive, continue to monitor vital signs Status: Chronic Qualifiers: Hypertension type: essential hypertension Qualified Code(s): I10 - Essential (primary) hypertension (11) Diabetes mellitus type 2, insulin dependent: -A1c-7.0 -Accucheks, ISS, hypoglycemia precautions -currently NPO due to vent support Status: Acute (12) Chronic kidney disease: -as noted above Status: Chronic Qualifiers: Chronic kidney disease stage: stage 5, not on chronic dialysis Qualified Code(s): N18.5 - Chronic kidney disease, stage 5 (13) Pneumonia: -as noted above Status: Acute Qualifiers: Laterality: bilateral Lung location: lower lobe of lung Pneumonia type: due to unspecified organism Qualified Code(s): J18.9 - Pneumonia, unspecified organism (14) Congestive heart failure: -has known chronic diastolic CHF, acute exacerbation -[id number] (in background of renal impairment) -is on IVF hydration -no diuretics due to SISSY -repeat Echo pending Status: Acute Qualifiers: Heart failure chronicity: acute on chronic Heart failure type: diastolic Qualified Code(s): I50.33 - Acute on chronic diastolic (congestive) heart failure Additional A&P Information -hx of gastric bypass -GI ppx with PPI -DVT ppx with SCDs, avoid AC due to anemia -Dispo: came from home -Code status: FULL code -ICU care given need for vent support, critical illness Attestations Medical Necessity Statement*: Patient requires hospitalization for continued management of critical illness with bilateral lower lobe pneumonia with associated sepsis and on vent support, IV antibiotics, SISSY on CKD requiring close monitoring of renal function and urine output. Time Spent in Patient Care: Greater than 35 minutes (>than 50% of time spent in counselling and/or direct pt care on unit). The high probability of a clinically significant, sudden or life threatening deterioration of the patient's [respiratory, renal] system(s) required my full and direct attention, intervention and personal management. The critical care time is as shown. This time is in addition to time spent performing any reported procedures but includes the following: [x] Data and vital sign review and interpretation [x] Patient assessment, examination and intervention [x] Documentation [x] Medication orders and management Coding Level of Care Code Acute Physics And Astronomy Professor for g Fwd Exam Comprehensive Diagnoses Acute and chronic respiratory failure ([id number]) J96.21; J96.22 Respiratory failure complication: hypoxia and hypercapnia Sepsis A41.9; R65.20; J96.01 Acute respiratory failure type: with hypoxia Sepsis acute organ dysfunction status: with acute organ dysfunction Sepsis type: sepsis due to unspecified organism Severe sepsis acute organ dysfunction type: acute respiratory failure Severe sepsis shock status: without septic shock Lactic acidosis E87.2 Acute kidney injury N17.9 Metabolic acidosis E87.2 Non-ST elevation SC (NSTEMI) I21.4 Diarrhea R19.7 Diarrhea type: unspecified type Elevated d-dimer R79.89 Anemia N18.5; D63.1 Anemia type: due to chronic kidney disease Chronic kidney disease stage: stage 5, not on chronic dialysis Hypertension I10 Hypertension type: essential hypertension Diabetes mellitus type 2, insulin dependent E11.9; Z79.4 Chronic kidney disease N18.5 Chronic kidney disease stage: stage 5, not on chronic dialysis Pneumonia J18.9 Laterality: bilateral Lung location: lower lobe of lung Pneumonia type: due to unspecified organism Congestive heart failure I50.33 Heart failure chronicity: acute on chronic Heart failure type: diastolic
--- NOTE | 2019-10-02 09:59 | PM.PN ---
Subjective Subjective: Interval history: Improving since admission with O2 needs coming down, hemodynamic stability, good urine output. COVID neg. Starting to become a little edematous and rales being heard in the lungs No other new issues overnight. Medications: Reviewed: Yes Medication Review Details: Active Medications Generic Name Dose Route Start Last Admin Trade Name Freq PRN Reason Stop Dose Admin Acetaminophen 650 mg 10/01/19 15:55 Tylenol PO Q6H PRN MILD PAIN Albuterol/Ipratrop ium 3 ml 10/01/19 09:33 Duoneb INHALATION Q6H PRN SHORTNESS OF LAVELL TH Albuterol/Ipratrop ium 3 ml 10/01/19 12:00 10/02/19 08:10 Duoneb INHALATION 3 ml QID.RESPIRATORY S CH Administration Dextrose 25 ml 10/01/19 16:00 D50w IVP ONCE PRN hypoglycemia prot ocol Protocol Dextrose 50 ml 10/01/19 16:00 D50w IVP PRN PRN hypoglycemia prot ocol Protocol Glucagon 1 mg 10/01/19 16:00 Glucagen IM ONCE PRN Adult Acute Hypog lycemia Prot. Protocol Propofol 1,000 mg in 100 m ls @ 0 mls/hr 10/01/19 07:00 10/02/19 09:32 Diprivan IV 30 mcg/kg/min .Q0M ARMANI 14.3 mls/hr Administration Protocol Per Protocol Piperacillin Sod/T azobactam 50 mls @ 12.5 mls /hr 10/01/19 19:00 10/02/19 08:31 Sod 3.375 gm/ So dium Chloride IV 12.5 mls/hr Q12H ARMANI Administration Protocol Sodium Chloride 1,000 mls @ 150 m ls/hr 10/01/19 16:00 10/02/19 05:03 Sodium Chloride 0.9% IV 150 mls/hr .Q6H40M ARMANI Administration Vancomycin HCl 1,0 00 mg/ 250 mls @ 250 mls /hr 10/01/19 17:30 10/01/19 21:05 Sodium Chloride IV Infused Q56H ARMANI Infusion Protocol Dextrose 500 mls @ 100 mls /hr 10/01/19 16:00 D5w IV ONCE PRN Adult Acute Hypog lycemia Prot Protocol Insulin Aspart 0 unit 10/01/19 21:00 10/01/19 22:00 Novolog SUBCUT 2 unit BEDTIME ARMANI Administration Protocol Insulin Aspart 0 unit 10/01/19 18:00 10/02/19 07:35 Novolog SUBCUT Not Given TIDWM ARMANI Protocol Ondansetron HCl 4 mg 10/01/19 15:55 Zofran IVP Q6H PRN NAUSEA AND VOMITI NG Pantoprazole Sodiu m 40 mg 10/02/19 09:00 10/02/19 08:30 Protonix IVP 40 mg DAILY ARMANI Administration No Known Allergies Allergy (Verified 10/01/19 11:16) Vitals/I&O/Wt Last Vital Signs Temp 98.8 F 10/01/19 20:00 Pulse 65 10/02/19 08:21 Resp 14 10/02/19 08:15 BP 136/62 10/02/19 08:00 Pulse Ox 100 10/02/19 08:15 10/01/19 10/02/19 10/02/19 22:59 06:59 14:59 Intake Total 306.884 / 361.198 5914 / 1456.884 Output Total 200 / 300 375 / 675 Balance 106.884 / 6.884 775 / 781.884 Weight last 48 hrs Weight 79.379 kg Weight 79.379 kg Weight 79.379 kg Physical Exam Narrative: EXAM NARRATIVE: Exam performed over telemed, with the assistance of the bedside RN Const: COMMON NORMALS: no acute distress GENERAL APPEARANCE: patient mechanically ventilated Neck/C-Spine: COMMON NORMALS: no JVD Chest: COMMONS NORMALS: normal inspection of the chest Resp: COMMON NORMALS: No retractions and No use of accessory muscles AUSCULTATION: diminished lung sounds Cardio: COMMON NORMALS: no JVD, regular rate, S1 normal heart sound present and S2 normal heart sound present RATE: regular rate HEART SOUNDS: S1 normal heart sound present and S2 normal heart sound present GI: COMMON NORMALS: Normal to inspection, nondistended, normoactive bowel sounds present Neuro: LINDY COMA SCALE: other (sedated in the ICU. She is responding appropriately by nodding to questions ) Urinary Catheter Management^: Mcginnis: Cath Placed During This Visit: yes Reason for Continuing Indwelling Catheter: Accurate Measurement of Urinary Output in Critically Ill Patients Urinary Catheter Date of Insertion: 10/01/19 Urinary Catheter Time of Insertion: 07:09 Data : 10/02/19 04:15 10/02/19 04:15 Micro: Microbiology 10/01/19 06:43 Blood Culture - Preliminary Blood NEGATIVE TO DATE 10/01/19 06:43 Blood Culture - Preliminary Blood NEGATIVE TO DATE 10/01/19 11:00 C.difficile Toxin B Gene (PCR) - Final Stool 10/01/19 09:00 Gram Stain - Final Sputum - Endotracheal Tube Aspirate A&P Additional A&P Information 1. SISSY on CKD stage 5 - She has been teetering on the edge of ESRD for some time, with baseline creatinine of 3.9mg/dL, eGFR 11 - Likely to be infection/hypoxic assoc ATN; hopefully there is a pre-renal element also - Creatinine coming down to a level lower than was seen in Dr Dorsey's clinic earlier in September - No indication for dialysis - am labs - avoid the usuals - if dialysis is indicated I would prefer to externalize the PD cath with plan to attempt to use this prior to placement of a hemodialysis line 2. Hypoxic resp failure - intubated and vented; mgmt per Dr Hines and Dr Mello - on Vanco and Zosyn - COVID negative - weaning over the next few days - DC ivf 3. Lytes - compensated met acidosis on ABG 4. Anemia of CKD - Hb dropping with dilution from ivf. - will add iron parameters - Will consider EPO on Friday - case d/w bedside RN - thanks for consult Attestations Medical Necessity Statement*: Mina for SISSY Coding Level of Care Code Acute Engraver Pantograph for Chg Mingo
--- NOTE | 2019-10-02 10:10 | XRR_ITS ---
PROCEDURE INFORMATION: Exam: XR Chest, 1 View Exam date and time: 10/02/2019 11:06 AM Age: 69 years old Clinical indication: Other: Hypoxia; Additional info: On vent support TECHNIQUE: Imaging protocol: XR of the chest Views: 1 view. COMPARISON: CR XR chest 1V portable [id number] 10/01/2019 8:37 AM FINDINGS: Tubes, catheters and devices: Endotracheal tube tip approximately 4 cm above the marcy. Nasogastric tube tip extends into the stomach. Lungs: Improved aeration of both lungs. Residual left lower lung opacity. Pleural space: Minimal bilateral costophrenic angle blunting. Heart/Mediastinum: Unremarkable. No cardiomegaly. Bones/joints: No acute findings. XR/XR chest 1V portable [id number] IMPRESSION: Endotracheal tube in satisfactory position. Improved aeration of both lungs. Minimal residual left lower lung consolidation and possible small bilateral pleural effusions.
[2019-10-02 10:15] LABS: Coronavirus Lab Test PTC SEE REPORT
[2019-10-02 10:23] LABS: ABG PCO2 31.7 mmHg (35-45); ABG PH Result 7.38 (7.35-7.45); Arterial Blood Gas Hematocrit 27.6 % (37-47); Base Excess ABG -5.9 mmol/L (-2.0-2.0); Blood Gas Allen Test Pos; Blood Gas Sample Site Radial, left; Blood Gas Sample Type Arterial; HCO3 ABG 18.5 mmol/L (22-26); Oxygen Device VENT
[2019-10-02 10:46] LABS: Iron 12 ug/dL (37-145); Percent Saturation 3.9 % (20-50); Total Iron Binding Capacity 301 mcg/dl; Unsaturated Iron Binding 289 ug/dL (112-347)
[2019-10-02 11:32] LABS: Glucose Point of Care 112 mg/dL (70-110)
--- NOTE | 2019-10-02 11:49 | USCV_ITS ---
Germaine Sumner Age: 69 Gender: F : 1950 Exam Date: 10/02/2019 10:32 Ordering Phys: Lucia Hines DO Technologist: Rosalba Silva [place] [facility] [place]: Hypoxia BP: 136 / 72 HR: 74 Rhythm: Sinus Technical Quality: Fair MEASUREMENTS (Male / Female) Normal Values 2D ECHO LV Diastolic Diameter PLAX 4.5 cm 4.2 - 5.9 / 3.9 - 5.3 cm LV Systolic Diameter PLAX 2.9 cm LV Chamber Size 3.8 cm IVS Diastolic Thickness 1.5 cm 0.6 - 1.0 / 0.6 - 0.9 cm IVS Systolic Thickness 1.9 cm LVPW Diastolic Thickness 0.9 cm 0.6 - 1.0 / 0.6 - 0.9 cm LVPW Systolic Thickness 1.3 cm RV Chamber Size 2.5 cm LVOT Diameter 1.9 cm LV Ejection Fraction 2D Teich 64.7 % LA Diameter 4.7 cm LA Width 4.3 cm LA Height 6.4 cm RA Width 2.4 cm RA Height 5.4 cm Aorta at Sinotubular Diameter 2.1 cm M-MODE LV Diastolic Diameter MM 5.4 cm 4.2 - 5.9 / 3.9 - 5.3 cm LV Systolic Diameter MM 3.6 cm LV Ejection Fraction MM Teich 62.2 % IVS Diastolic Thickness MM 1.3 cm 0.6 - 1.0 / 0.6 - 0.9 cm IVS Systolic Thickness MM 1.7 cm LVPW Diastolic Thickness MM 1.4 cm 0.6 - 1.0 / 0.6 - 0.9 cm LVPW Systolic Thickness MM 1.8 cm RV Diastolic Diameter MM 1.6 cm Aortic Annulus Diameter 2.9 cm LA Ao Ratio MM 1.6 MV E Point Septal Separation 0.4 cm DOPPLER AV Peak Velocity 172.0 cm/s LVOT Peak Velocity 112.0 cm/s AV Area Cont Eq vti 1.8 cm squared AV Area Cont Eq pk 1.8 cm squared MV Area PHT 3.7 cm squared Mitral E to A Ratio 0.9 MV E' Velocity 7.0 cm/s Mitral E to MV E' Ratio 12.5 Mitral E to LV E' Lateral Ratio 15.4 Mitral E to LV E' Septal Ratio 10.5 TR Peak Velocity 325.0 cm/s TR Peak Gradient 42.2 mmHg TV Peak E Velocity 49.0 cm/s Right Atrial Pressure 15.0 mmHg Pulmonary Artery Systolic Pressu 57.3 mmHg PV Peak Velocity 70.0 cm/s RV Acceleration Time 0.1 s RV Ejection Time 0.3 s RV AcT/ET 0.3 FINDINGS Left Ventricle Mildly increased left ventricular mass. Moderately increased septal wall thickness. Moderately increased posterior wall thickness. Mildly decreased midwall fractional shortening. Mildly increased left ventricular diastolic diameter. Moderately increased left ventricular relative wall thickness. Normal regional wall motion. LV systolic function preserved. Right Ventricle The right ventricle is normal in size and function. Right Atrium The right atrium is normal in size. Left Atrium Mildly increased left atrial volume. Mildly increased left atrial area. Mitral Valve Mitral annular calcification and mitral valve thickening with calcification. Moderate to severe centrally directed mitral regurgitation. Aortic Valve Mild thickening and calcification of the aortic valve leaflets. Three cusps identified. Mild aortic stenosis. Tricuspid Valve Structurally normal tricuspid valve without significant stenosis or regurgitation. Pulmonary artery systolic pressure is normal. Pulmonic Valve Structurally normal pulmonic valve without significant stenosis. There is no pulmonic regurgitation. Pericardium Normal pericardium without effusion. Aorta Normal ascending aorta dimension. CONCLUSIONS .Normal left ventircular wall motion with left ventricular hypertrophy. Grade 1 diastolic dysfunction. Left atrial enlargement. Normal right sided chamber sizes and function. Calcification of the mitral annulus with thickendined mitral leaflets. Moderate to severe central mitral regurgitation. Minimal aortic stenosis. Mild tricuspid regurgitation with mild elevation of right ventricular systolic pressures consistent with mild pulmonary hypertension. Dr. Rashard Varela MD (Electronically Signed) Final Date: 02 Oct 2019 12:41 S
--- NOTE | 2019-10-02 12:32 | USR_ITS ---
PROCEDURE INFORMATION: Exam: US Retroperitoneal Complete, Kidneys and Bladder. Exam date and time: 10/02/2019 10:30 AM Age: 69 years old Clinical indication: Abnormal findings; Abnormal lab test; Abnormal kidney function lab tests; Additional info: Abe on ckd TECHNIQUE: Imaging protocol: Real-time ultrasound of the retroperitoneum with image documentation. Complete exam focused on the kidneys and bladder. COMPARISON: 1. US Renal Kidney Structu* [id number] 02/12/2017 12:35 PM 2. COMPARISON MORE: CT chest abd pel wo con 10/02/2019 2:52:43 AM FINDINGS: Right kidney: Small, suboptimal detail of the renal parenchyma. Cortical thinning. No hydronephrosis. Left kidney: Small, suboptimal detail the renal parenchyma. Cortical thinning. No hydronephrosis. Bladder: Unremarkable. US/US renal BI* [id number] IMPRESSION: No hydronephrosis of either kidney.
--- NOTE | 2019-10-02 14:41 | PC.NURSE ---
weaning vent at this time sedation off and awake up in bed
--- NOTE | 2019-10-02 15:01 | PC.NURSE ---
remains awake on cpap sats 97
[2019-10-02 17:10] LABS: Glucose Point of Care 143 mg/dL (70-110)
[2019-10-02 20:53] LABS: Glucose Point of Care 139 mg/dL (70-110)
[2019-10-03] VITALS (28 sets, daily range): BP systolic 132–235; BP diastolic 52–126; PULSE 67–85; RESP 15–20; TEMP 36.7; O2SAT 91–99; BMI 28.2
[2019-10-03 04:37] LABS: Basophils % 0.2 %; Eosinophils # 0.1 10^3/uL (0.0-0.8); Eosinophils % 0.9 %; Hematocrit 25.8 % (37.0-47.0); Hemoglobin 7.6 g/dL (11.5-15.3); Lymphocytes # 1.2 10^3/uL (0.8-4.8); Lymphocytes % 9.5 %; Mean Corpuscular HGB Conc 29.5 g/dL (30.0-36.0); Mean Corpuscular Hemoglobin 27.5 pg (28.0-34.0); Mean Corpuscular Volume 93.5 fL (81-99); Monocytes # 0.7 10^3/uL (0.2-0.9); Monocytes % 5.6 %; Neutrophils # 10.1 10^3/uL (1.8-7.7); Neutrophils % 83.4 %; Nucleated Red Blood Cells % 0 %; Platelet Count 312 10^3/cmm (130-400); Red Blood Count 2.76 10^6/uL (4.1-5.3); Red Cell Distribution Width 15.9 % (12.1-15.1); White Blood Count 12.2 10^3/uL (4.0-10.0)
[2019-10-03 04:56] LABS: Anion Gap 20.5 (5-19); Calcium 8.8 mg/dL (8.5-10.5); Carbon Dioxide 18 mmol/L (22-29); Chloride 110 mmol/L (98-107); Glucose 111 mg/dL (65-115); Osmolality Calculated 299 mOsm/kg (285-295); Potassium 4.5 mmol/L (3.5-5.1); Sodium 144 mmol/L (136-145)
[2019-10-03 05:47] LABS: Blood Urea Nitrogen 82 mg/dL (8-23)
[2019-10-03] MEDS: sodium chloride 0.45% 1,000 ML 100 ML IV ×2 (07:03→17:19)
--- NOTE | 2019-10-03 07:18 | P.PN_ITS ---
Subjective Subjective: Interval history: extubated, feels better. good uop. however recurrent SISSY Medications: Reviewed: Yes Medication Review Details: Current Medications Acetaminophen (Tylenol) 650 mg PO Q6H PRN PRN Reason: MILD PAIN Albuterol/Ipratropium (Duoneb) 3 ml INHALATION Q6H PRN PRN Reason: SHORTNESS OF BREATH Albuterol/Ipratropium (Duoneb) 3 ml INHALATION QID.RESPIRATORY ARMANI Last Admin: 10/02/19 19:39 Dose: 3 ml Documented by: Dextrose (D50w) 25 ml IVP ONCE PRN; Protocol PRN Reason: hypoglycemia protocol Dextrose (D50w) 50 ml IVP PRN PRN; Protocol PRN Reason: hypoglycemia protocol Glucagon (Glucagen) 1 mg IM ONCE PRN; Protocol PRN Reason: Adult Acute Hypoglycemia Prot. Propofol (Diprivan) 1,000 mg in 100 mls @ 0 mls/hr IV .Q0M ARMANI; Protocol Last Titration: 10/02/19 20:37 Dose: Infused Documented by: Piperacillin Sod/Tazobactam (Sod 3.375 gm/ Sodium Chloride) 50 mls @ 12.5 mls/hr IV Q12H ARMANI; Protocol Last Admin: 10/02/19 20:46 Dose: 12.5 mls/hr Documented by: Vancomycin HCl 1,000 mg/ (Sodium Chloride) 250 mls @ 250 mls/hr IV Q56H ARMANI; Protocol Last Infusion: 10/01/19 21:05 Dose: Infused Documented by: Dextrose (D5w) 500 mls @ 100 mls/hr IV ONCE PRN; Protocol PRN Reason: Adult Acute Hypoglycemia Prot Sodium Chloride (Sodium Chloride 0.45%) 1,000 mls @ 100 mls/hr IV .Q10H ARMANI Last Admin: 10/03/19 07:03 Dose: 100 mls/hr Documented by: Insulin Aspart (Novolog) 0 unit SUBCUT BEDTIME ARMANI; Protocol Last Admin: 10/02/19 20:42 Dose: Not Given Documented by: Insulin Aspart (Novolog) 0 unit SUBCUT TIDWM ARMANI; Protocol Last Admin: 10/02/19 17:19 Dose: Not Given Documented by: Ondansetron HCl (Zofran) 4 mg IVP Q6H PRN PRN Reason: NAUSEA AND VOMITING Pantoprazole Sodium (Protonix) 40 mg IVP DAILY ARMANI Last Admin: 10/02/19 08:30 Dose: 40 mg Documented by: Vitals/I&O/Wt Last Vital Signs Temp 98.2 F 10/02/19 20:00 Pulse 70 10/03/19 06:00 Resp 20 H 10/03/19 00:00 BP 143/53 10/03/19 06:00 Pulse Ox 98 10/03/19 06:00 10/02/19 10/03/19 10/03/19 22:59 06:59 14:59 Intake Total 1580 / 1630 480 / 2110 Output Total 850 / 1225 1450 / 2675 Balance 730 / 405 -970 / -565 Weight last 48 hrs Weight 79.379 kg Weight 79.379 kg Weight 79.379 kg Physical Exam Narrative: EXAM NARRATIVE: comfortble, NARD heent- nc/at, eomi, anicteric neck supple lungs clear heart rrr, +RUCHI abd soft, nt, nd, +BS ext no edema + ambrose w/ excellent uop neuro= a,a, o x 3, from x 4, + pulses Urinary Catheter Management^: Ambrose: Cath Placed During This Visit: yes Urethral Indwelling: Yes Reason for Continuing Indwelling Catheter: Accurate Measurement of Urinary Output in Critically Ill Patients Urinary Catheter Date of Insertion: 10/01/19 Urinary Catheter Time of Insertion: 07:09 Data : 10/03/19 04:08 10/03/19 04:08 Micro: Microbiology 10/01/19 06:43 Blood Culture - Preliminary Blood NEGATIVE TO DATE 10/01/19 06:43 Blood Culture - Preliminary Blood NEGATIVE TO DATE A&P Additional A&P Information 69 yr old female w/ VDRF- now extubated 1. SISSY on CKD stage 5 - She has been teetering on the edge of ESRD for some time, with baseline creatinine of 3.9mg/dL, eGFR 11 - cr improved yesterday to better than baseline. now recurrent SISSY -no obstruction on imaging -restart ivf as she has diarrhea -repeat chemistries -clinically dry to euvolemic, no uremic symptoms. no emergency indication for dialysis. however if cr continues to rise, will need to start. will discuss w/ Dr. Orozco ex-planting her presumed PD catheter vs permactah. pt would also need PD traiining -for now she wants to hold on HD -check vanco level -no rash or eosinophilia to presume AIN -send renal-pulm serologies 2. pna on vanco/ zosyn wbc improved 3. anemia- low iron sat. check ferritin- give epo 4. met acidosis- na bicarb 5. meds reviewed discussed w/ RN Attestations Medical Necessity Statement*: sissy, pna, anemia Time Spent in Patient Care: Greater than 35 minutes Coding Level of Care Code Acute Food And Beverage Server for Shannon Aguila
[2019-10-03 07:24] LABS: Glucose Point of Care 96 mg/dL (70-110)
[2019-10-03 07:45] LABS: Blood Urine 2+ (Negative); Glucose Urine UA Norm (Normal); Ketones Urine Negative (Negative); Protein Urine 1+ (Negative); Specific Gravity, Urine 1.015 (1.005-1.030); Urine Appearance SL Hazy (CLEAR); Urine Color Yellow (Yellow); pH Urine 5 (5-7)
[2019-10-03 07:46] LABS: Bilirubin Urine Neg (NEGATIVE); Leukocyte Esterase Urine Negative (Negative); Nitrate Urine Negative (Negative); Urobilinogen Urine Norm (Negative)
[2019-10-03 07:47] LABS: Alanine Aminotransferase 12 U/L (0-33); Albumin Level 3.4 g/dL (3.5-5.2); Alkaline Phosphatase 50 IU/L (35-105); Anion Gap 19.7 (5-19); Aspartate Amino Transferase 16 U/L (0-32); Blood Urea Nitrogen 77 mg/dL (8-23); Calcium 8.3 mg/dL (8.5-10.5); Carbon Dioxide 19 mmol/L (22-29); Chloride 109 mmol/L (98-107); Globulin 2.9 g/dL (1.3-4.6); Glucose 92 mg/dL (65-115); Osmolality Calculated 295 mOsm/kg (285-295); Potassium 4.7 mmol/L (3.5-5.1); Sodium 143 mmol/L (136-145); Total Bilirubin 0.3 mg/dL (0.15-1.2); Total Protein 6.3 g/dL (6.6-8.7)
[2019-10-03 08:00] LABS: Potassium, Radom Urine 11 mmol/L; Urine Random Chloride 23 mmol/L; Urine Random Sodium 49 mmol/L
[2019-10-03 08:05] LABS: Ferritin 56 ng/mL (15-150); Vancomycin Random 10.3 ug/mL (20.0-40.0)
[2019-10-03 08:18] LABS: Bacteria Urine 1+; WBC Urine 0-4 /hpf (0-5)
[2019-10-03 08:19] LABS: Mucus Urine 1+
[2019-10-03 08:20] LABS: Add Urine Culture? Yes
[2019-10-03] MEDS: ipratropium-albuterol 3 mL Neb INHALATION ×4 (08:40→20:54)
[2019-10-03] MEDS: piperacillin-tazobactam 3.375 GM in sodium chloride 0.9% (plus) 50 ML IV ×2 (09:23→20:27)
[2019-10-03] MEDS: sodium bicarbonate 650 mg Tablet PO ×3 (09:23→20:27)
[2019-10-03] MEDS: pantoprazole 40 mg SDV IVP (09:23)
[2019-10-03] MEDS: diphenoxylate/atropine Tablet 2 TAB PO (10:10)
--- NOTE | 2019-10-03 10:22 | PC.NURSE ---
lab called to nephrology
--- NOTE | 2019-10-03 10:37 | PM.CONSULT ---
Providers/Reason For Consult Consulting Physican/Specialty*: Gary Nicole MD Reason for Consult*: End-stage renal disease requiring Dilaysis Attending Physician: Iram Sharma MD Primary Care Provider: Kishore Blackwood History of Present Illness History of Present Illness Chief Complaint: I have a kidney problem History of present illness: Ms.Alice Reema Sumner is a pleasant 69 year old female with multiple medical comorbidities including end-stage renal disease and being on the kidney transplant list, presented to the hospital with worsening respiratory issues in the form of worsening shortness of breath required intubation patient was admitted on the hospitalist service and she was tested for COVID-19 that returned back negative, there was no history of fevers or chills or recent contact with COVID-19 positive personal. Currently the patient has been extubated and tolerating p.o. intake and apparently her kidney functions has been fluctuating she did undergo laparoscopic placement of tunneled double-cuff peritoneal dialysis catheter back in 06/27/[address] Orozco my partner and at that time the exteriorized part was intentionally buried for potential future use, I was approached by Dr. Radford the auto hiker security solutions engineer to initially assess the patient and evaluate her for having an access to her peritoneal dialysis catheter for potential dialysis. Patient has been on the transplant list at [facility] and she has been followed up on by Dr. Dorsey her auto hiker for quite some time and from what I collected that she has been having fluctuating kidney functions but did not require dialysis yet. Patient was seen and evaluated in the ICU, patient reports to me that she had a laparoscopic Owen-en-Y gastric bypass many years ago. Review of Systems General: Reports: 10 or more systems reviewed and unremarkable except in HPI and below Meds/Allergies Home Medications and Allergies Home Medications Medication Instructions Recorded Confirmed Last Taken Type atenolol 25 mg PO DAILY 10/01/19 10/01/19 Unknown History Allergies Allergy/AdvReac Type Severity Reaction Status Date / Time No Known Allergies Allergy Verified 10/03/19 14:45 Current Medications Current Medications Generic Name Dose Route Start Last Admin Trade Name Freq PRN Reason Stop Dose Admin Albuterol/Ipratropium 3 ml 10/01/19 12:00 10/02/19 19:39 Duoneb INHALATION 3 ml QID.RESPIRATORY ARMANI Administration Propofol 1,000 mg in 100 mls @ 0 mls/hr 10/01/19 07:00 10/02/19 20:37 Diprivan IV Infused .Q0M ARMANI Titration Protocol Per Protocol Piperacillin Sod/Tazobactam 50 mls @ 12.5 mls/hr 10/01/19 19:00 10/03/19 09:23 Sod 3.375 gm/ Sodium Chloride IV 12.5 mls/hr Q12H ARMANI Administration Protocol Vancomycin HCl 1,000 mg/ 250 mls @ 250 mls/hr 10/01/19 17:30 10/01/19 21:05 Sodium Chloride IV Infused Q56H ARMANI Infusion Protocol Sodium Chloride 1,000 mls @ 100 mls/hr 10/03/19 07:00 10/03/19 07:03 Sodium Chloride 0.45% IV 100 mls/hr .Q10H ARMANI Administration Insulin Aspart 0 unit 10/01/19 21:00 10/02/19 20:42 Novolog SUBCUT Not Given BEDTIME ARMANI Protocol Insulin Aspart 0 unit 10/01/19 18:00 10/03/19 07:26 Novolog SUBCUT Not Given TIDWM ARMANI Protocol Pantoprazole Sodium 40 mg 10/02/19 09:00 10/03/19 09:23 Protonix IVP 40 mg DAILY ARMANI Administration Sodium Bicarbonate 650 mg 10/03/19 09:00 10/03/19 09:23 Sodium Bicarbonate PO 650 mg TID ARMANI Administration PFSH Acute PFSH: Medical History (Updated 10/03/19 @ 14:46 by Gary Nicole MD) Chronic kidney disease Diabetes mellitus type 2, insulin dependent Hypertension Surgical History (Updated 10/01/19 @ 17:03 by Lucia Hines DO) History of cholecystectomy History of gastric bypass History of hemorrhoidectomy History of sinus surgery Status post insertion of dialysis catheter Peritoneal dialysis catheter placed by Dr. Orozco Family History (Updated 10/01/19 @ 17:03 by Lucia Hines DO) Mother Diabetes Congestive heart failure Father CAD (coronary artery disease) Social History Smoking and tobacco status: unknown if ever smoked Vitals/I&O/Wt Last Vital Signs Temp 98.2 F 10/02/19 20:00 Pulse 75 10/03/19 10:00 Resp 20 H 10/03/19 00:00 BP 132/59 10/03/19 10:00 Pulse Ox 93 10/03/19 10:00 10/02/19 10/03/19 10/03/19 22:59 06:59 14:59 Intake Total 1580 / 1630 530 / 2160 Output Total 850 / 1225 1450 / 2675 Balance 730 / 405 -920 / -515 Weight last 48 hrs Weight 175 lb Weight 175 lb Weight 175 lb Physical Exam Narrative: EXAM NARRATIVE: Patient is conscious alert oriented X3 BMI 28 Head and neck examination PERRLA no masses no cervical lymphadenopathy no jaundice Cardiac examination audible S1-S2 no murmurs no gallops no arrhythmias Chest is clear bilateral,abscence of Rhonchi or wheezes,no surgical emphysema Abdomen nontender nondistended soft no organomegaly guarding or rigidity/no signs of peritonitis/lower abdominal midline Right sided palpable peritoneal dialysis catheter at the subcutaneous level Urinary Catheter Management^: Mcginnis: Cath Placed During This Visit: yes Urethral Indwelling: Yes Reason for Continuing Indwelling Catheter: Accurate Measurement of Urinary Output in Critically Ill Patients Urinary Catheter Date of Insertion: 10/01/19 Urinary Catheter Time of Insertion: 07:09 Data Micro: Micro: Microbiology 10/01/19 11:00 Urine Culture - Pr eliminary Urine,Clean Catch 10/01/19 06:43 Blood Culture - Pr eliminary Blood NEGATIVE TO SETH E 10/01/19 06:43 Blood Culture - Pr eliminary Blood NEGATIVE TO SETH E A&P Assessment and plan (1) Peritoneal dialysis catheter in place: After thorough history physical examination and reviewing the chart and images with my personal interpretation of the CT scan, further discussion with the patient I did funeral pre arrangement counselor her for laparoscopic possible open peritoneal dialysis catheter adjustment/replacement and exteriorization of the catheter for potential need for dialysis. Plan to perform surgery tomorrow Indications, risks, benefits and alternatives all discussed with the patient and at this point patient agreed to proceed accordingly The plan of care has been coordinated with Dr. Sharma and Dr. Radford Thank you for consulting general surgery to participate taking care Ms. Sumner Status: Acute Consult Attestations Medical Necessity Statement: Medical necessity care is expected to cross 2 midnights Time Spent in Patient Care: 16 - 35 minutes (>than 50% of time spent in counselling and/or direct pt care on unit). Coding Level of Care Code Acute Supervisor Typesetting for Chg Fwd Diagnoses Peritoneal dialysis catheter in place Z99.2
[2019-10-03 11:24] LABS: Glucose Point of Care 77 mg/dL (70-110)
[2019-10-03 12:01] LABS: Glucose Point of Care 76 mg/dL (70-110)
[2019-10-03 12:19] LABS: Glucose Point of Care 103 mg/dL (70-110)
--- NOTE | 2019-10-03 12:35 | PM.PN ---
Subjective Subjective: Interval history: Noted worsening in creatinine from 3.0->5.4, stable hemoglobin at 7.6, had 1450 mL urine output overnight. Respiratory status continues to improve and she is currently maintained on room air. Notably hypertensive. Nephrology has requested ex-plantation of PD catheter in case of need to start dialysis. Patient is quite reluctant to have this done at this time but will be kept NPO. Dr. Nicole consulted for this. Patient has had multiple loose bowel movements, states that she has had chronic diarrhea for a long time and has to take Imodium for this to get better. Suspect worsening renal function is secondary to this. IV fluid hydration restarted. Has not had much oral intake prior to NPO status due to low appetite. Medications: Reviewed: Yes Medication Review Details: Active Medications Generic Name Dose Route Start Last Admin Trade Name Freq PRN Reason Stop Dose Admin Acetaminophen 650 mg 10/01/19 15:55 Tylenol PO Q6H PRN MILD PAIN Albuterol/Ipratrop ium 3 ml 10/01/19 09:33 Duoneb INHALATION Q6H PRN SHORTNESS OF LAVELL TH Albuterol/Ipratrop ium 3 ml 10/01/19 12:00 10/03/19 08:40 Duoneb INHALATION 3 ml QID.RESPIRATORY S CH Administration Dextrose 25 ml 10/01/19 16:00 D50w IVP ONCE PRN hypoglycemia prot ocol Protocol Dextrose 50 ml 10/01/19 16:00 D50w IVP PRN PRN hypoglycemia prot ocol Protocol Glucagon 1 mg 10/01/19 16:00 Glucagen IM ONCE PRN Adult Acute Hypog lycemia Prot. Protocol Propofol 1,000 mg in 100 m ls @ 0 mls/hr 10/01/19 07:00 10/02/19 20:37 Diprivan IV Infused .Q0M ARMANI Titration Protocol Per Protocol Piperacillin Sod/T azobactam 50 mls @ 12.5 mls /hr 10/01/19 19:00 10/03/19 09:23 Sod 3.375 gm/ So dium Chloride IV 12.5 mls/hr Q12H ARMANI Administration Protocol Vancomycin HCl 1,0 00 mg/ 250 mls @ 250 mls /hr 10/01/19 17:30 10/01/19 21:05 Sodium Chloride IV Infused Q56H ARMANI Infusion Protocol Dextrose 500 mls @ 100 mls /hr 10/01/19 16:00 D5w IV ONCE PRN Adult Acute Hypog lycemia Prot Protocol Sodium Chloride 1,000 mls @ 100 m ls/hr 10/03/19 07:00 10/03/19 07:03 Sodium Chloride 0.45% IV 100 mls/hr .Q10H ARMANI Administration Insulin Aspart 0 unit 10/01/19 21:00 10/02/19 20:42 Novolog SUBCUT Not Given BEDTIME ARMANI Protocol Insulin Aspart 0 unit 10/01/19 18:00 10/03/19 11:55 Novolog SUBCUT Not Given TIDWM ARMANI Protocol Ondansetron HCl 4 mg 10/01/19 15:55 Zofran IVP Q6H PRN NAUSEA AND VOMITI NG Pantoprazole Sodiu m 40 mg 10/02/19 09:00 10/03/19 09:23 Protonix IVP 40 mg DAILY ARMANI Administration Sodium Bicarbonate 650 mg 10/03/19 09:00 10/03/19 09:23 Sodium Bicarbona te PO 650 mg TID ARMANI Administration No Known Allergies Allergy (Verified 10/01/19 11:16) Vitals/I&O/Wt Last Vital Signs Temp 98.2 F 10/02/19 20:00 Pulse 83 10/03/19 12:07 Resp 15 10/03/19 12:07 BP 161/107 10/03/19 12:00 Pulse Ox 99 10/03/19 12:07 10/02/19 10/03/19 10/03/19 22:59 06:59 14:59 Intake Total 1580 / 1630 530 / 2160 480 / 480 Output Total 850 / 1225 1450 / 2675 1450 / 1450 Balance 730 / 405 -920 / -515 -970 / -970 Weight last 48 hrs Weight 79.379 kg Weight 79.379 kg Weight 79.379 kg Physical Exam Const: COMMON NORMALS: no acute distress, patient oriented x3 and alert GENERAL APPEARANCE: comfortable; not ill appearing NUTRITIONAL APPEARANCE: overweight OTHER: -sitting in chair by bedside HENMT: COMMON NORMALS: normocephalic, atraumatic and hearing grossly normal bilaterally HEAD & SCALP: normocephalic and atraumatic MOUTH: other (OGT and orally intubated; ETT-23 cm at lip) Eye: COMMON NORMALS: Equal, round and reactive pupils present, EOMs intact bilaterally and conjunctivae normal CONJUNCTIVA: Yes conjunctivae normal PUPIL: Yes Equal, round and reactive pupils present Neck/C-Spine: COMMON NORMALS: full ROM GENERAL: Yes normal visual inspection and Yes trachea midline Chest: CHEST: Yes Symmetrical chest wall rise Resp: COMMON NORMALS: normal respiratory effort, No retractions and No use of accessory muscles EFFORT & INSPECTION: Yes symmetric chest movement and No tachypneic AUSCULTATION: diminished lung sounds bilateral OTHER: -on RA Cardio: COMMON NORMALS: regular rate, regular rhythm, S1 normal heart sound present, S2 normal heart sound present and No murmurs present (Cardio) RATE: regular rate RHYTHM: regular rhythm HEART SOUNDS: S1 normal heart sound present and S2 normal heart sound present OTHER: -hypertensive GI: COMMON NORMALS: Normal to inspection, nondistended, normoactive bowel sounds present and Soft to palpation INSPECTION: Yes central obesity PALPATION: Yes Soft to palpation OTHER: -palpable PD catheter (RUQ) : BLADDER/KIDNEY EXAM: Yes catheter in place Catheter type (Female): urethral Extremity: COMMON NORMALS: normal to inspection, no clubbing, cyanosis or edema and no pedal edema Neuro: COMMON NORMALS: patient oriented x3, moves all extremities, no focal motor deficits and no sensory deficits noted SENSORIUM/ORIENTATION: Yes alert Psych: COMMON NORMALS: mental status grossly normal, Normal thought process present, cooperative, normal affect and speech normal SPEECH: Yes normal speech THOUGHT PROCESS: Normal thought process present OTHER: -sedated Skin: COMMON NORMALS: no rashes or lesions noted, no jaundice, no petechiae and no mottling GENERAL SKIN EXAM: no rashes or lesions noted Urinary Catheter Management^: Mcginnis: Cath Placed During This Visit: yes Urethral Indwelling: Yes Reason for Continuing Indwelling Catheter: Accurate Measurement of Urinary Output in Critically Ill Patients Urinary Catheter Date of Insertion: 10/01/19 Urinary Catheter Time of Insertion: 07:09 Data : 10/03/19 04:08 10/03/19 07:15 Micro: Microbiology 10/01/19 11:00 Urine Culture - Preliminary Urine,Clean Catch A&P Assessment and plan (1) Acute kidney injury: -SISSY on CKD stage 5 -has PD catheter in place, not used (placed on 06/2017) -Nephrology evaluation appreciated; no need for emergent dialysis currently but may need PD catheter ex-planted as may need initiation of dialysis if continued renal impairment -continue to monitor urine output, has Mcginnis catheter -renal US unremarkable -noted bilateral renal cortical scarring, mild renal atrophy, mild bilateral perinephric fat stranding; no hydronephrosis on CT -avoid nephrotoxins, renally dose meds -follows up with Dr. Dorsey, is on renal transplant list at [facility] Status: Acute (2) Acute and chronic respiratory failure ([id number]): -Due to significant respiratory distress patient was intubated in the field by EMS -Successfully extubated yesterday (10/01) -Imaging reviewed with noted bilateral interstitial edema/infiltrates, worse on the right -Associated sepsis initially as noted below with significant lactic acidosis, significant leukocytosis with neutrophilic predominance, hypoxia. Sepsis resolved -on broad-spectrum IV antibiotics with vancomycin/Zosyn, both renally dosed due to underlying renal impairment -Leukocytosis is improving, continue to trend WBC -Lactic acidosis is also improving -Vital signs stable though hypertensive today, continue to monitor -IV fluid hydration resumed due to worsening renal function -Sputum culture pending, gram stain shows moderate WBCs, few GPC -Blood cx: prelim negative -NPO -COVD-19 negative, off isolation precautions Status: Acute Qualifiers: Respiratory failure complication: hypoxia and hypercapnia Qualified Code(s): J96.21 - Acute and chronic respiratory failure with hypoxia; J96.22 - Acute and chronic respiratory failure with hypercapnia (3) Sepsis: -as evidenced by lactic acidosis, leukocytosis, hypoxia, SISSY Status: Resolved Qualifiers: Sepsis type: sepsis due to unspecified organism Sepsis acute organ dysfunction status: with acute organ dysfunction Severe sepsis acute organ dysfunction type: acute respiratory failure Acute respiratory failure type: with hypoxia Severe sepsis shock status: without septic shock Qualified Code(s): A41.9 - Sepsis, unspecified organism; R65.20 - Severe sepsis without septic shock; J96.01 - Acute respiratory failure with hypoxia (4) Lactic acidosis: -as noted above -improving Status: Acute (5) Metabolic acidosis: -Noted elevated anion gap metabolic acidosis likely secondary to lactic acidosis, acute infection with sepsis and renal impairment -Anion gap improved today -on IVF, off vent Status: Acute (6) Non-ST elevation MO (NSTEMI): -suspect this is secondary to demand ischemia in light of acute infection with noted significant renal impairment -Echo: EF=60%, G1DD, moderate to severe MR, mild , mild pulmonary HTN, mild TR -telemetry monitoring Status: Acute (7) Diarrhea: -C.difficile negative, discontinue contact isolation precautions -patient reports chronic diarrhea and takes loperamide for this, resume Status: Chronic Qualifiers: Diarrhea type: unspecified type Qualified Code(s): R19.7 - Diarrhea, unspecified (8) Elevated d-dimer: -D-dimer-2.51 -no CTA PE due to renal impairment -low suspicion for PE at this time -not a good candidate for AC due to anemia -DIC panel negative Status: Acute (9) Anemia: -acute on chronic anemia of chronic disease secondary to CKD; Hg stable though low (7.6) -baseline Hg appears to be wnl based on last Hg in 2018 of 12.5 -iron very low -continued drop in Hg though dilutional component due to IVF -continued close monitoring of Hg Status: Acute Qualifiers: Anemia type: due to chronic kidney disease Chronic kidney disease stage: stage 5, not on chronic dialysis Qualified Code(s): N18.5 - Chronic kidney disease, stage 5; D63.1 - Anemia in chronic kidney disease (10) Hypertension: -hypertensive, continue to monitor vital signs -will add oral antihypertensives, hydralazine PRN Status: Chronic Qualifiers: Hypertension type: essential hypertension Qualified Code(s): I10 - Essential (primary) hypertension (11) Diabetes mellitus type 2, insulin dependent: -A1c-7.0 -Accucheks, ISS, hypoglycemia precautions -currently NPO due to potential need for procedure Status: Acute (12) Chronic kidney disease: -as noted above Status: Chronic Qualifiers: Chronic kidney disease stage: stage 5, not on chronic dialysis Qualified Code(s): N18.5 - Chronic kidney disease, stage 5 (13) Pneumonia: -as noted above Status: Acute Qualifiers: Pneumonia type: due to unspecified organism Laterality: bilateral Lung location: lower lobe of lung Qualified Code(s): J18.9 - Pneumonia, unspecified organism (14) Congestive heart failure: -has known chronic diastolic CHF, acute exacerbation -[id number] (in background of renal impairment) -is on IVF hydration -no diuretics due to SISSY -repeat Echo noted above Status: Acute Qualifiers: Heart failure chronicity: acute on chronic Heart failure type: diastolic Qualified Code(s): I50.33 - Acute on chronic diastolic (congestive) heart failure Additional A&P Information -hx of gastric bypass -PT/OT evaluations, up with assistance, fall precautions -GI ppx with PPI -DVT ppx with SCDs, avoid AC due to anemia -Dispo: came from home -Code status: FULL code -ICU care given need for continued close monitoring and potential initiation of dialysis Attestations Medical Necessity Statement*: Patient requires hospitalization for continued management of SISSY on CKD stage V with noted worsening renal function this morning and resumption of IV fluid hydration, needs continued monitoring of hemoglobin. Time Spent in Patient Care: 16 - 35 minutes (>than 50% of time spent in counselling and/or direct pt care on unit). 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 Diagnoses Acute kidney injury N17.9 Acute and chronic respiratory failure ([id number]-[id number]) J96.21; J96.22 Respiratory failure complication: hypoxia and hypercapnia Sepsis A41.9; R65.20; J96.01 Sepsis type: sepsis due to unspecified organism Sepsis acute organ dysfunction status: with acute organ dysfunction Severe sepsis acute organ dysfunction type: acute respiratory failure Acute respiratory failure type: with hypoxia Severe sepsis shock status: without septic shock Lactic acidosis E87.2 Metabolic acidosis E87.2 Non-ST elevation MO (NSTEMI) I21.4 Diarrhea R19.7 Diarrhea type: unspecified type Elevated d-dimer R79.89 Anemia N18.5; D63.1 Anemia type: due to chronic kidney disease Chronic kidney disease stage: stage 5, not on chronic dialysis Hypertension I10 Hypertension type: essential hypertension Diabetes mellitus type 2, insulin dependent E11.9; Z79.4 Chronic kidney disease N18.5 Chronic kidney disease stage: stage 5, not on chronic dialysis Pneumonia J18.9 Pneumonia type: due to unspecified organism Laterality: bilateral Lung location: lower lobe of lung Congestive heart failure I50.33 Heart failure chronicity: acute on chronic Heart failure type: diastolic
[2019-10-03] MEDS: amlodipine 5 mg Tablet PO (13:04)
--- NOTE | 2019-10-03 14:39 | PC.NURSE ---
dr here to talk to pt about accessing dialysis port will place on am surgery list
--- NOTE | 2019-10-03 15:37 | PC.NURSE ---
up with physical therapy in [place] ambulating with no distress at this time alert balance remains good no c/o pain no resp distress noted at this time po fluid and pudding given for surg in am
[2019-10-03 16:49] LABS: Glucose Point of Care 146 mg/dL (70-110)
[2019-10-03] MEDS: metoprolol tartrate 25 mg Tablet PO (17:19)
[2019-10-03 20:26] LABS: Glucose Point of Care 189 mg/dL (70-110)
[2019-10-04] VITALS (28 sets, daily range): BP systolic 140–179; BP diastolic 49–98; PULSE 65–84; RESP 15–29; TEMP 36.3–36.7; O2SAT 88–98
[2019-10-04] MEDS: vancomycin 1,000 MG in sodium chloride 0.9% 250 ML 250 MG IV (01:36)
[2019-10-04] MEDS: sodium chloride 0.45% 1,000 ML 100 ML IV (03:28)
[2019-10-04 05:28] LABS: Basophils # 0.1 10^3/uL (0.0-0.1); Basophils % 0.6 %; Eosinophils # 0.3 10^3/uL (0.0-0.8); Eosinophils % 3.4 %; Hematocrit 25.6 % (37.0-47.0); Hemoglobin 7.6 g/dL (11.5-15.3); Lymphocytes # 1.4 10^3/uL (0.8-4.8); Lymphocytes % 16.3 %; Mean Corpuscular HGB Conc 29.7 g/dL (30.0-36.0); Mean Corpuscular Hemoglobin 27.9 pg (28.0-34.0); Mean Corpuscular Volume 94.1 fL (81-99); Mean Platelet Volume 10.2 fL (7.4-10.4); Monocytes # 0.5 10^3/uL (0.2-0.9); Monocytes % 5.3 %; Neutrophils # 6.5 10^3/uL (1.8-7.7); Neutrophils % 74.1 %; Nucleated Red Blood Cells % 0 %; Platelet Count 312 10^3/cmm (130-400); Red Blood Count 2.72 10^6/uL (4.1-5.3); Red Cell Distribution Width 16.1 % (12.1-15.1); White Blood Count 8.7 10^3/uL (4.0-10.0)
[2019-10-04 05:47] LABS: Alanine Aminotransferase 74 U/L (0-33); Albumin Level 3.3 g/dL (3.5-5.2); Alkaline Phosphatase 151 IU/L (35-105); Anion Gap 18.8 (5-19); Aspartate Amino Transferase 84 U/L (0-32); Blood Urea Nitrogen 71 mg/dL (8-23); Calcium 8.7 mg/dL (8.5-10.5); Carbon Dioxide 19 mmol/L (22-29); Chloride 108 mmol/L (98-107); Globulin 3.3 g/dL (1.3-4.6); Glucose 99 mg/dL (65-115); Magnesium 3.1 mg/dL (1.7-2.3); Osmolality Calculated 291 mOsm/kg (285-295); Phosphorus 6.4 mg/dL (2.5-4.5); Potassium 4.8 mmol/L (3.5-5.1); Sodium 141 mmol/L (136-145); Total Bilirubin 0.3 mg/dL (0.15-1.2); Total Protein 6.6 g/dL (6.6-8.7)
[2019-10-04 05:48] LABS: Calcium 8.2 mg/dL (8.5-10.5)
--- NOTE | 2019-10-04 06:21 | PC.NURSE ---
Spoke with patient about scheduled surgery to explant peritoneal dialysis catheter. Patient expresses her wishes to refuse the surgery. This RN spoke with Dr. Glez on the phone about patients desires.
[2019-10-04 06:28] LABS: Parathyroid Hormone 346.7 pg/mL (15-65)
--- NOTE | 2019-10-04 07:16 | PM.PN ---
Subjective Subjective: Interval history: weak, sob, swollen, poor appetite, itching Medications: Reviewed: Yes Medication Review Details: Current Medications Acetaminophen (Tylenol) 650 mg PO Q6H PRN PRN Reason: MILD PAIN Albuterol/Ipratropium (Duoneb) 3 ml INHALATION Q6H PRN PRN Reason: SHORTNESS OF BREATH Albuterol/Ipratropium (Duoneb) 3 ml INHALATION QID.RESPIRATORY ARMANI Last Admin: 10/03/19 20:54 Dose: 3 ml Documented by: Amlodipine Besylate (Norvasc) 5 mg PO DAILY ARMANI Last Admin: 10/03/19 13:04 Dose: 5 mg Documented by: Dextrose (D50w) 25 ml IVP ONCE PRN; Protocol PRN Reason: hypoglycemia protocol Dextrose (D50w) 50 ml IVP PRN PRN; Protocol PRN Reason: hypoglycemia protocol Glucagon (Glucagen) 1 mg IM ONCE PRN; Protocol PRN Reason: Adult Acute Hypoglycemia Prot. Hydralazine HCl (Apresoline) 10 mg IVP Q4H PRN PRN Reason: elevated blood pressure Propofol (Diprivan) 1,000 mg in 100 mls @ 0 mls/hr IV .Q0M ARMANI; Protocol Last Titration: 10/02/19 20:37 Dose: Infused Documented by: Piperacillin Sod/Tazobactam (Sod 3.375 gm/ Sodium Chloride) 50 mls @ 12.5 mls/hr IV Q12H ARMANI; Protocol Last Infusion: 10/04/19 00:57 Dose: Infused Documented by: Vancomycin HCl 1,000 mg/ (Sodium Chloride) 250 mls @ 250 mls/hr IV Q56H ARMANI; Protocol Last Infusion: 10/04/19 02:36 Dose: Infused Documented by: Dextrose (D5w) 500 mls @ 100 mls/hr IV ONCE PRN; Protocol PRN Reason: Adult Acute Hypoglycemia Prot Sodium Chloride (Sodium Chloride 0.45%) 1,000 mls @ 100 mls/hr IV .Q10H ARMANI Last Admin: 10/04/19 03:28 Dose: 100 mls/hr Documented by: Insulin Aspart (Novolog) 0 unit SUBCUT BEDTIME ARMANI; Protocol Last Admin: 10/03/19 20:28 Dose: 3 unit Documented by: Insulin Aspart (Novolog) 0 unit SUBCUT TIDWM ARMANI; Protocol Last Admin: 10/03/19 17:06 Dose: Not Given Documented by: Metoprolol Tartrate (Lopressor) 25 mg PO BID [facility] Last Admin: 10/03/19 17:19 Dose: 25 mg Documented by: Ondansetron HCl (Zofran) 4 mg IVP Q6H PRN PRN Reason: NAUSEA AND VOMITING Pantoprazole Sodium (Protonix) 40 mg IVP DAILY [facility] Last Admin: 10/03/19 09:23 Dose: 40 mg Documented by: Sodium Bicarbonate (Sodium Bicarbonate) 650 mg PO TID [facility] Last Admin: 10/03/19 20:27 Dose: 650 mg Documented by: Vitals/I&O/Wt Last Vital Signs Temp 98.0 F 10/04/19 05:14 Pulse 70 10/04/19 06:00 Resp 21 H 10/04/19 06:00 BP 175/64 10/04/19 06:00 Pulse Ox 96 10/04/19 06:00 10/03/19 10/04/19 10/04/19 22:59 06:59 14:59 Intake Total 1300 / 1830 1300 / 3130 Output Total 1500 / 2950 650 / 3600 Balance -200 / -1120 650 / -470 Weight last 48 hrs Weight 89.811 kg Weight 79.379 kg Physical Exam Narrative: EXAM NARRATIVE: obese woman using NC02, sob in bed heent- nc/at, eomi, anicteric neck supple lungs crackles b/l heart rrr, +RUCHI abd soft, nt, nd, +BS ext 2+ b/l leg edema + ambrose w/ excellent uop neuro= a,a, o x 3, from x 4, + pulses Urinary Catheter Management^: Ambrose: Cath Placed During This Visit: yes Urethral Indwelling: Yes Reason for Continuing Indwelling Catheter: Accurate Measurement of Urinary Output in Critically Ill Patients Urinary Catheter Date of Insertion: 10/01/19 Urinary Catheter Time of Insertion: 07:09 Data : 10/04/19 04:25 10/04/19 04:25 Micro: Microbiology 10/01/19 09:00 Gram Stain - Final Sputum - Endotracheal Tube Aspirate Sputum Culture - Preliminary 10/01/19 11:00 Urine Culture - Preliminary Urine,Clean Catch A&P Additional A&P Information 69 yr old female w/ VDRF- now extubated 1. SISSY on CKD stage 5 - She has been teetering on the edge of ESRD for some time, with baseline creatinine of 3.9mg/dL, eGFR 11 - pt hs uremic symptoms- i informed her that she would benefit from renal replacemnt therapy soon. -i advised ex-planting her peritoneal dialysis catheter, and Dr. Nicole is willing to today. however, she refuses -even if we had PD catheter externalized today, she would need over a week of training -pt wants to hear from Dr. Dorsey, i will try and get in touch with him -for now she wants to hold on HD -no rash or eosinophilia to presume AIN -f/u renal-pulm serologies d/c ivf -check cxr- likely needs diuresis 2. pna on vanco/ zosyn wbc improved -dose vanco, aim for trough under 19 3. anemia- low iron sat and ferritin 0iv iron and epo 4. met acidosis- na bicarb 5. bone- mineral- metabolism of ckd stage 5 -phos binder for phos of 6.4 calcitriol for pth 346 6.htn- monitor off of fluids. 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
--- NOTE | 2019-10-04 07:32 | XR_ITS ---
WS: [id number] PORTABLE CHEST HISTORY: chf/ sob COMPARISON: 10/02/2019 Lungs are clear and well expanded. No pleural effusion or pneumothorax. Cardiac size: Normal. Mediastinum/Aorta: Mild atherosclerosis aorta. No osseous abnormality seen. XR/XR chest 1V portable [id number] IMPRESSION: Unremarkable portable chest.
[2019-10-04] MEDS: ipratropium-albuterol 3 mL Neb INHALATION ×4 (07:41→19:36)
[2019-10-04 07:51] LABS: Glucose Point of Care 103 mg/dL (70-110)
[2019-10-04] MEDS: epoetin alfa 10,000 unit/mL INJ 10000 UNIT SUBCUT (08:54)
[2019-10-04] MEDS: ferric gluconate 125 MG in sodium chloride 0.9% (100 ml) 100 ML 110 MG IV (08:54)
[2019-10-04] MEDS: calcitriol 0.25 mcg Capsule PO (09:16)
[2019-10-04] MEDS: sevelamer 800 mg Tablet PO ×3 (09:16→21:18)
[2019-10-04] MEDS: hyDRALAzine 25 mg Tablet PO ×3 (09:16→21:18)
[2019-10-04] MEDS: metoprolol tartrate 25 mg Tablet PO ×2 (09:17→17:00)
[2019-10-04] MEDS: amlodipine 5 mg Tablet PO (09:17)
[2019-10-04] MEDS: sodium bicarbonate 650 mg Tablet PO ×3 (09:17→21:18)
[2019-10-04] MEDS: pantoprazole 40 mg SDV IVP (09:17)
[2019-10-04] MEDS: piperacillin-tazobactam 3.375 GM in sodium chloride 0.9% (plus) 50 ML IV ×2 (09:18→17:00)
--- NOTE | 2019-10-04 09:37 | PM.PN ---
Subjective Subjective: Interval history: Patient decided not to proceed with surgery yesterday evening and thus surgery was canceled, yet today after she did talk with Dr. Dorsey she changed her mind and she is interested to proceed, unfortunately the patient already had breakfast. Vitals/I&O/Wt Last Vital Signs Temp 98.0 F 10/04/19 05:14 Pulse 74 10/04/19 07:42 Resp 17 10/04/19 07:42 BP 175/64 10/04/19 06:00 Pulse Ox 94 10/04/19 07:42 10/03/19 10/04/19 10/04/19 22:59 06:59 14:59 Intake Total 1300 / 1830 1300 / 3130 Output Total 1500 / 2950 650 / 3600 Balance -200 / -1120 650 / -470 Weight last 48 hrs Weight 198 lb Weight 175 lb Physical Exam Narrative: EXAM NARRATIVE: Patient is conscious alert oriented X3 BMI 32 Head and neck examination PERRLA no masses no cervical lymphadenopathy no jaundice Abdomen nontender nondistended soft no organomegaly guarding or rigidity/no signs of peritonitis Right-sided catheter in place beneath the skin Urinary Catheter Management^: Mcginnis: Cath Placed During This Visit: yes Urethral Indwelling: Yes Reason for Continuing Indwelling Catheter: Accurate Measurement of Urinary Output in Critically Ill Patients Urinary Catheter Date of Insertion: 10/01/19 Urinary Catheter Time of Insertion: 07:09 Data : 10/04/19 04:25 10/04/19 04:25 Micro: Microbiology 10/01/19 09:00 Gram Stain - Final Sputum - Endotracheal Tube Aspirate Sputum Culture - Preliminary 10/01/19 11:00 Urine Culture - Preliminary Urine,Clean Catch A&P Assessment and plan (1) Peritoneal dialysis catheter in place: We will plan for laparoscopic possible open peritoneal dialysis catheter adjustment/replacement and exteriorization of the catheter for potential need for dialysis tomorrow. Indications, risks, benefits and alternatives all discussed with the patient and at this point patient agreed to proceed accordingly. N.p.o. after midnight The plan of care has been coordinated with Dr. Sharma ,Dr. Radford and Dr. Dorsey Thank you for consulting general surgery to participate taking care Ms. Sumner Status: Acute Attestations Medical Necessity Statement*: Medical necessity care is expected to cross 2 midnights Time Spent in Patient Care: (>than 50% of time spent in counselling and/or direct pt care on unit). 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
[2019-10-04] MEDS: diphenoxylate/atropine Tablet 2 TAB PO (09:41)
[2019-10-04] MEDS: hyDRALAzine 20 mg/mL INJ 1 mL 10 MG IVP (10:45)
--- NOTE | 2019-10-04 11:08 | PC.SOCIAL ---
Pg 2 IMM Explained to pt Pg 2 IMM. No questions voiced. Copy provided to pt & left on pt's bedside table. Initialed, dated, & timed copy and placed in chart.
--- NOTE | 2019-10-04 11:18 | P.PN_ITS ---
Subjective Subjective: Interval history: Patient seen early this morning, was initially scheduled for explantation of PD catheter today which she declined pending discussion with Dr. Dorsey. Now agreeable to proceeding with procedure, will keep n.p.o. after midnight and have this scheduled for tomorrow per discussion with Dr. Glez and Dr. Hernandez. Patient had 2150 mL urine output overnight, noted resolved leukocytosis, stable hemoglobin at 7.6, increased creatinine at 5.2, stable BUN, noted hypomagnesemia and hypophosphatemia. Previous LFTs were within normal limits, now seem to be trending up. Sitting in recliner, seems less anxious she has made a decision on PD catheter, ordered V/Q scan to evaluate for possible PE and requested cardiology evaluation secondary to NSTEMI. No acute overnight events reported. Medications: Reviewed: Yes Medication Review Details: Active Medications Generic Name Dose Route Start Last Admin Trade Name Freq PRN Reason Stop Dose Admin Acetaminophen 650 mg 10/01/19 15:55 Tylenol PO Q6H PRN MILD PAIN Albuterol/Ipratrop ium 3 ml 10/01/19 09:33 Duoneb INHALATION Q6H PRN SHORTNESS OF LAVELL TH Albuterol/Ipratrop ium 3 ml 10/01/19 12:00 10/04/19 11:14 Duoneb INHALATION 3 ml QID.RESPIRATORY S CH Administration Amlodipine Besylat e 5 mg 10/03/19 12:40 10/04/19 09:17 Norvasc PO 5 mg DAILY ARMANI Administration Calcitriol 0.25 mcg 10/04/19 09:00 10/04/19 09:16 Rocaltrol PO 0.25 mcg DAILY ARMANI Administration Dextrose 25 ml 10/01/19 16:00 D50w IVP ONCE PRN hypoglycemia prot ocol Protocol Dextrose 50 ml 10/01/19 16:00 D50w IVP PRN PRN hypoglycemia prot ocol Protocol Diphenoxylate HCl/ Atropine 2 tab 10/04/19 09:30 10/04/19 09:41 Lomotil PO 2 tab DAILY ARMANI Administration Epoetin Jose 10,000 unit 10/04/19 08:00 10/04/19 08:54 Procrit SUBCUT 10,000 unit WEEKLY ARMANI Administration Glucagon 1 mg 10/01/19 16:00 Glucagen IM ONCE PRN Adult Acute Hypog lycemia Prot. Protocol Hydralazine HCl 10 mg 10/03/19 12:38 10/04/19 10:45 Apresoline IVP 10 mg Q4H PRN Administration elevated blood pr essure Hydralazine HCl 25 mg 10/04/19 09:00 10/04/19 09:16 Apresoline PO 25 mg TID ARMANI Administration Piperacillin Sod/T azobactam 50 mls @ 12.5 mls /hr 10/01/19 19:00 10/04/19 09:18 Sod 3.375 gm/ So dium Chloride IV 110 mls/hr Q12H ARMANI Administration Protocol Vancomycin HCl 1,0 00 mg/ 250 mls @ 250 mls /hr 10/01/19 17:30 10/04/19 02:36 Sodium Chloride IV Infused Q56H ARMANI Infusion Protocol Dextrose 500 mls @ 100 mls /hr 10/01/19 16:00 D5w IV ONCE PRN Adult Acute Hypog lycemia Prot Protocol Ferric Sodium Gluc harjit 125 mg 110 mls @ 110 mls /hr 10/04/19 08:30 10/04/19 08:54 / Sodium Chlorid e IV 10/11/19 09:29 110 mls/hr Q24H ARMANI Administration Insulin Aspart 0 unit 10/01/19 21:00 10/03/19 20:28 Novolog SUBCUT 3 unit BEDTIME ARMANI Administration Protocol Insulin Aspart 0 unit 10/01/19 18:00 10/04/19 08:53 Novolog SUBCUT Not Given TIDWM ARMANI Protocol Metoprolol Tartrat e 25 mg 10/03/19 18:00 10/04/19 09:17 Lopressor PO 25 mg BID ARMANI Administration Ondansetron HCl 4 mg 10/01/19 15:55 Zofran IVP Q6H PRN NAUSEA AND VOMITI NG Pantoprazole Sodiu m 40 mg 10/02/19 09:00 10/04/19 09:17 Protonix IVP 40 mg DAILY ARMANI Administration Sevelamer Carbonat e 800 mg 10/04/19 09:00 10/04/19 09:16 Renvela PO 800 mg TID ARMANI Administration Sodium Bicarbonate 650 mg 10/03/19 09:00 10/04/19 09:17 Sodium Bicarbona te PO 650 mg TID ARMANI Administration No Known Allergies Allergy (Verified 10/03/19 14:45) Vitals/I&O/Wt Last Vital Signs Temp 98.0 F 10/04/19 05:14 Pulse 73 10/04/19 11:16 Resp 16 10/04/19 11:16 BP 175/64 10/04/19 06:00 Pulse Ox 95 10/04/19 11:16 10/03/19 10/04/19 10/04/19 22:59 06:59 14:59 Intake Total 1300 / 1830 1300 / 3130 Output Total 1500 / 2950 650 / 3600 Balance -200 / -1120 650 / -470 Weight last 48 hrs Weight 89.811 kg Weight 79.379 kg Physical Exam Const: COMMON NORMALS: no acute distress, patient oriented x3 and alert GENERAL APPEARANCE: comfortable; not ill appearing NUTRITIONAL APPEARANCE: overweight ORIENTATION/CONSCIOUSNESS: Yes Other orientation findings (sedated) OTHER: - sitting in chair by bedside HENMT: COMMON NORMALS: normocephalic, atraumatic and hearing grossly normal bilaterally HEAD & SCALP: normocephalic and atraumatic Eye: COMMON NORMALS: Equal, round and reactive pupils present, EOMs intact bilaterally and conjunctivae normal CONJUNCTIVA: Yes conjunctivae normal PUPIL: Yes Equal, round and reactive pupils present Neck/C-Spine: COMMON NORMALS: full ROM GENERAL: Yes normal visual inspection and Yes trachea midline Chest: CHEST: Yes Symmetrical chest wall rise Resp: COMMON NORMALS: normal respiratory effort, No retractions and No use of accessory muscles EFFORT & INSPECTION: Yes symmetric chest movement and No tachypneic AUSCULTATION: diminished lung sounds bilateral OTHER: -on RA Cardio: COMMON NORMALS: regular rate, regular rhythm, S1 normal heart sound present, S2 normal heart sound present and No murmurs present (Cardio) RATE: regular rate RHYTHM: regular rhythm HEART SOUNDS: S1 normal heart sound present and S2 normal heart sound present OTHER: -hypertensive GI: COMMON NORMALS: Normal to inspection, nondistended, normoactive bowel sounds present and Soft to palpation INSPECTION: Yes central obesity PALPATION: Yes Soft to palpation OTHER: -palpable PD catheter (RUQ) : BLADDER/KIDNEY EXAM: Yes catheter in place Catheter type (Female): urethral Extremity: COMMON NORMALS: normal to inspection, no clubbing, cyanosis or edema and no pedal edema Neuro: COMMON NORMALS: patient oriented x3, moves all extremities, no focal motor deficits and no sensory deficits noted SENSORIUM/ORIENTATION: Yes alert Psych: COMMON NORMALS: mental status grossly normal, Normal thought process present, cooperative, normal affect and speech normal SPEECH: Yes normal speech THOUGHT PROCESS: Normal thought process present Skin: COMMON NORMALS: no rashes or lesions noted, no jaundice, no petechiae and no mottling GENERAL SKIN EXAM: no rashes or lesions noted Urinary Catheter Management^: Mcginnis: Cath Placed During This Visit: yes Urethral Indwelling: Yes Reason for Continuing Indwelling Catheter: Accurate Measurement of Urinary Output in Critically Ill Patients Urinary Catheter Date of Insertion: 10/01/19 Urinary Catheter Time of Insertion: 07:09 Data : 10/04/19 04:25 10/04/19 04:25 Micro: Microbiology 10/01/19 11:00 Urine Culture - Final Urine,Clean Catch 10/03/19 07:10 Urine Culture - Preliminary Urine,Clean Catch Staphylococcus species 10/01/19 09:00 Gram Stain - Final Sputum - Endotracheal Tube Aspirate Sputum Culture - Preliminary A&P Assessment and plan (1) Acute kidney injury: -SISSY on CKD stage 5 -has PD catheter in place, not used (placed on 06/2017) -Nephrology evaluation appreciated; no need for emergent dialysis currently but may need PD catheter ex-planted as may need initiation of dialysis if continued renal impairment -Surgery consult by Dr. Glez appreciated; plan for explantation of PD catheter tomorrow; NPO after midnight -continue to monitor urine output, has Mcginnis catheter; good urine output -renal US unremarkable -noted bilateral renal cortical scarring, mild renal atrophy, mild bilateral perinephric fat stranding; no hydronephrosis on CT -avoid nephrotoxins, renally dose meds -follows up with Dr. Dorsey, is on renal transplant list at [facility] -renal function slightly worsened today with Cr increased from 5->5.2; continue to monitor renal function closely -off IVF hydration Status: Acute (2) Acute and chronic respiratory failure ([id number]): -Due to significant respiratory distress patient was intubated in the field by EMS -Successfully extubated (10/01) -Imaging reviewed with noted bilateral interstitial edema/infiltrates, worse on the right. Repeat CXR today unremarkable -Associated sepsis initially as noted below with significant lactic acidosis, significant leukocytosis with neutrophilic predominance, hypoxia. Sepsis resolved -on broad-spectrum IV antibiotics with vancomycin/Zosyn, both renally dosed due to underlying renal impairment -Leukocytosis resolved -Lactic acidosis is also improving -Vital signs stable though has been hypertensive, continue to monitor -IV fluid hydration discontinued -Sputum culture prelim-mixed ilan, gram stain shows moderate WBCs, few GPC -Blood cx: prelim negative -COVD-19 negative, off isolation precautions -consider switch to oral antibiotics with clinical improvement Status: Acute Qualifiers: Respiratory failure complication: hypoxia and hypercapnia Qualified Code(s): J96.21 - Acute and chronic respiratory failure with hypoxia; J96.22 - Acute and chronic respiratory failure with hypercapnia (3) Sepsis: -as evidenced by lactic acidosis, leukocytosis, hypoxia, SISSY Status: Resolved Qualifiers: Acute respiratory failure type: with hypoxia Sepsis acute organ dysfunction status: with acute organ dysfunction Sepsis type: sepsis due to unspecified organism Severe sepsis acute organ dysfunction type: acute respiratory failure Severe sepsis shock status: without septic shock Qualified Code(s): A41.9 - Sepsis, unspecified organism; R65.20 - Severe sepsis without septic shock; J96.01 - Acute respiratory failure with hypoxia (4) Lactic acidosis: -as noted above -improving Status: Acute (5) Metabolic acidosis: -Noted elevated anion gap metabolic acidosis likely secondary to lactic acidosis, acute infection with sepsis and renal impairment -Anion gap closed today -off IVF, off vent Status: Acute (6) Non-ST elevation OR (NSTEMI): -suspect this is secondary to demand ischemia in light of acute infection with noted significant renal impairment -Echo: EF=60%, G1DD, moderate to severe MR, mild , mild pulmonary HTN, mild TR -telemetry monitoring -Cardiology consult requested Status: Acute (7) Diarrhea: -C.difficile negative, discontinue contact isolation precautions -patient reports chronic diarrhea and takes lomotil for this, resumed Status: Chronic Qualifiers: Diarrhea type: unspecified type Qualified Code(s): R19.7 - Diarrhea, un specified (8) Elevated d-dimer: -D-dimer-2.51 -no CTA PE due to renal impairment -low suspicion for PE at this time but will order V/Q scan to r/o -not a good candidate for AC due to anemia -DIC panel negative Status: Acute (9) Anemia: -acute on chronic anemia of chronic disease secondary to CKD; Hg stable though low (7.6) -baseline Hg appears to be wnl based on last Hg in 2018 of 12.5 -iron very low; on IV iron and EPO -continued drop in Hg though dilutional component due to IVF -continued close monitoring of Hg Status: Acute Qualifiers: Anemia type: due to chronic kidney disease Chronic kidney disease stage: stage 5, not on chronic dialysis Qualified Code(s): N18.5 - Chronic kidney disease, stage 5; D63.1 - Anemia in chronic kidney disease (10) Hypertension: -hypertensive, continue to monitor vital signs -on oral antihypertensives, hydralazine PRN Status: Chronic Qualifiers: Hypertension type: essential hypertension Qualified Code(s): I10 - Essential (primary) hypertension (11) Diabetes mellitus type 2, insulin dependent: -A1c-7.0 -Accucheks, ISS, hypoglycemia precautions -consistent carb diet Status: Chronic (12) Chronic kidney disease: -as noted above Status: Chronic Qualifiers: Chronic kidney disease stage: stage 5, not on chronic dialysis Qualified Code(s): N18.5 - Chronic kidney disease, stage 5 (13) Pneumonia: -as noted above Status: Acute Qualifiers: Laterality: bilateral Lung location: lower lobe of lung Pneumonia type: due to unspecified organism Qualified Code(s): J18.9 - Pneumonia, unspecified organism (14) Congestive heart failure: -has known chronic diastolic CHF, acute exacerbation -[id number] (in background of renal impairment) -off IVF hydration -no diuretics due to SISSY -repeat Echo noted above Status: Acute Qualifiers: Heart failure chronicity: acute on chronic Heart failure type: diastolic Qualified Code(s): I50.33 - Acute on chronic diastolic (congestive) heart failure Additional A&P Information -hx of gastric bypass -transaminitis; noted LFT elevation today, previously wnl, no hepatic abnormality on imaging, -PT/OT evaluations appreciated, up with assistance, fall precautions -GI ppx with PPI -DVT ppx with SCDs, avoid AC due to anemia -Dispo: came from home -Code status: FULL code -ICU care given need for continued close monitoring and potential initiation of dialysis Attestations Medical Necessity Statement*: Patient requires hospitalization for continued management of chronic kidney disease pending explantation of PD catheter, acutely worsening anemia, pneumonia, NSTEMI. Time Spent in Patient Care: Greater than 35 minutes (>than 50% of time spent in counselling and/or direct pt care on unit) . Coding Level of Care Code Acute Allergist Immunologist for g Fwd Exam Comprehensive Diagnoses Acute kidney injury N17.9 Acute and chronic respiratory failure ([id number]) J96.21; J96.22 Respiratory failure complication: hypoxia and hypercapnia Sepsis A41.9; R65.20; J96.01 Acute respiratory failure type: with hypoxia Sepsis acute organ dysfunction status: with acute organ dysfunction Sepsis type: sepsis due to unspecified organism Severe sepsis acute organ dysfunction type: acute respiratory failure Severe sepsis shock status: without septic shock Lactic acidosis E87.2 Metabolic acidosis E87.2 Non-ST elevation OR (NSTEMI) I21.4 Diarrhea R19.7 Diarrhea type: unspecified type Elevated d-dimer R79.89 Anemia N18.5; D63.1 Anemia type: due to chronic kidney disease Chronic kidney disease stage: stage 5, not on chronic dialysis Hypertension I10 Hypertension type: essential hypertension Diabetes mellitus type 2, insulin dependent E11.9; Z79.4 Chronic kidney disease N18.5 Chronic kidney disease stage: stage 5, not on chronic dialysis Pneumonia J18.9 Laterality: bilateral Lung location: lower lobe of lung Pneumonia type: due to unspecified organism Congestive heart failure I50.33 Heart failure chronicity: acute on chronic Heart failure type: diastolic
--- NOTE | 2019-10-04 11:20 | NMR_ITS ---
PROCEDURE INFORMATION: Exam: [facility] Lung Ventilation and Perfusion Imaging Exam date and time: 10/04/2019 11:42 AM Age: 69 years old Clinical indication: Shortness of breath; Additional info: Rule out pe TECHNIQUE: Imaging protocol: Nuclear pulmonary ventilation with aerosol or gas was performed followed by perfusion. Views: Ventilation acquired with multiple projections. Perfusion acquired with multiple projections. Radiopharmaceutical: 31.4 mCi of Tc-99m DTPA, inhaled. 5.4 mCi of Tc-99m MAA, IV. COMPARISON: 1. [place] Lung Vent and Perfus* [id number] 08/22/2018 4:21 PM 2. COMPARISON MORE: CR - XR chest 1V portable [id number] 10/04/2019 8:02:41 AM FINDINGS: Ventilation: Normal. No ventilation defects. Perfusion: Normal. No perfusion defects. OK/OK pul vent and perfus* [id number] IMPRESSION: Normal perfusion. No evidence of pulmonary embolism.
--- NOTE | 2019-10-04 11:48 | ECG_ITS ---
Measurements Intervals [place] Rate: 67 P: 22 RI: 148 QRS: -21 QRSD: 149 T: 38 QT: 440 QTc: 468 SINUS RHYTHM LEFT BUNDLE BRANCH BLOCK [120+ ms QRS DURATION, 80+ ms Q/S IN V1/V2, 85+ ms R IN I/aVL/V5/V6] Compared to ECG 10/01/2019 14:18:59 Left bundle-branch block now present Intraventricular conduction delay no longer present Electronically Signed On 10-05-2019 22:14:09 CDT by Evie Gaffney M.D. [email or web address]
--- NOTE | 2019-10-04 12:25 | PM.CONSULT ---
Providers/Reason For Consult Consulting Physican/Specialty*: CardiologyAveyr Reason for Consult*: Preoperative Cardiovascualr clearance. Attending Physician: Iram Sharma MD Primary Care Provider: Kishore Blackwood History of Present Illness History of Present Illness Germaine Sumner is a 69 year old female that presented to the emergency department for increasing shortness of breath. Patient was in the process of being brought to the emergency department by private vehicle when she developed worsening respiratory distress therefore EMS was called. It was reported that upon EMS arrival patient's oxygen saturation was in the 40s. She was then apparently intubated due to respiratory distress. Patient with known ESRD she has been following with a cardiac rehabilitation program director for her chronic kidney disease and has been on the transplant list at [facility]. She has been cared for now in the ICU for respiratory support and ongoing dialysis and needs to have peritoneal catheter management surgically to allow for dialysis. She has been extubated and is feeling well and back to normal. She has been found to have elevated troponin and request from surgery prior to externalization of port wishes cardiology input. She states she has no history of coronary disease or heart failure. She had not been experiencing much in the way of dyspnea prior to her event. But she does note she was on a trip to [place] and ate out. upon returning she noted she needed to sleep up in a chair as she was short of breath. At 4 am she tried to lay flat but became abruptly more short of breath and summoned help. The subsequent events are noted above. Her past cardiac history is generally unremarkable. She sees a transplant physician at [place] yearly and had a negative nuclear imaging stress test in June. She follows in [place] and she had an appointment scheduled with her cardiac rehabilitation program director to discuss her worsening renal condition with a CrCl of 19. This was worsening and apparently there was to be a discussion of whether to explant her indwelling peritoneal dialysis catheter that was in place since 2018 in anticipation of renal failure. She states she still makes urine and uses lasix. Her acute phase echocardiogram showed diastolic dysfunction, LVH, normal wall motion and moderate to severe central MR. Review of Systems General: Reports: 10 or more systems reviewed and unremarkable except in HPI and below Card: Reports: dyspnea on exertion Resp: Reports: dyspnea Meds/Allergies Home Medications and Allergies Home Medications Medication Instructions Recorded Confirmed Last Taken Type atenolol 25 mg PO DAILY 10/01/19 10/01/19 Unknown History Allergies Allergy/AdvReac Type Severity Reaction Status Date / Time No Known Allergies Allergy Verified 10/03/19 14:45 Current Medications Current Medications Generic Name Dose Route Start Last Admin Trade Name Calebq PRN Reason Stop Dose Admin Albuterol/Ipratropium 3 ml 10/01/19 12:00 10/04/19 11:14 Duoneb INHALATION 3 ml QID.RESPIRATORY ARMANI Administration Amlodipine Besylate 5 mg 10/03/19 12:40 10/04/19 09:17 Norvasc PO 5 mg DAILY ARMANI Administration Calcitriol 0.25 mcg 10/04/19 09:00 10/04/19 09:16 Rocaltrol PO 0.25 mcg DAILY ARMANI Administration Diphenoxylate HCl/Atropine 2 tab 10/04/19 09:30 10/04/19 09:41 Lomotil PO 2 tab DAILY ARMANI Administration Epoetin Jose 10,000 unit 10/04/19 08:00 10/04/19 08:54 Procrit SUBCUT 10,000 unit WEEKLY ARMANI Administration Hydralazine HCl 10 mg 10/03/19 12:38 10/04/19 10:45 Apresoline IVP 10 mg Q4H PRN Administration elevated blood pressure Hydralazine HCl 25 mg 10/04/19 09:00 10/04/19 09:16 Apresoline PO 25 mg TID ARMANI Administration Piperacillin Sod/Tazobactam 50 mls @ 12.5 mls/hr 10/01/19 19:00 10/04/19 09:18 Sod 3.375 gm/ Sodium Chloride IV 110 mls/hr Q12H ARMANI Administration Protocol Vancomycin HCl 1,000 mg/ 250 mls @ 250 mls/hr 10/01/19 17:30 10/04/19 02:36 Sodium Chloride IV Infused Q56H ARMANI Infusion Protocol Ferric Sodium Gluconate 125 mg 110 mls @ 110 mls/hr 10/04/19 08:30 10/04/19 08:54 / Sodium Chloride IV 10/11/19 09:29 110 mls/hr Q24H ARMANI Administration Insulin Aspart 0 unit 10/01/19 21:00 10/03/19 20:28 Novolog SUBCUT 3 unit BEDTIME ARMANI Administration Protocol Insulin Aspart 0 unit 10/01/19 18:00 05/25/20 08:53 Novolog SUBCUT Not [facility] Protocol Metoprolol Tartrate 25 mg 10/03/19 18:00 10/04/19 09:17 Lopressor PO 25 mg BID ARMANI Administration Pantoprazole Sodium 40 mg 10/02/19 09:00 10/04/19 09:17 Protonix IVP 40 mg DAILY ARMANI Administration Sevelamer Carbonate 800 mg 10/04/19 09:00 10/04/19 09:16 Renvela PO 800 mg TID ARMANI Administration Sodium Bicarbonate 650 mg 10/03/19 09:00 10/04/19 09:17 Sodium Bicarbonate PO 650 mg TID ARMANI Administration PFSH Acute PFSH: Medical History Chronic kidney disease Diabetes mellitus type 2, insulin dependent Hypertension Surgical History History of cholecystectomy History of gastric bypass History of hemorrhoidectomy History of sinus surgery Status post insertion of dialysis catheter Peritoneal dialysis catheter placed by Dr. Orozco Family History Mother Diabetes Congestive heart failure Father CAD (coronary artery disease) Social History Smoking and tobacco status: unknown if ever smoked Vitals/I&O/Wt Last Vital Signs Temp 98.0 F 10/04/19 05:14 Pulse 77 10/04/19 11:19 Resp 16 10/04/19 11:16 BP 175/64 10/04/19 06:00 Pulse Ox 95 10/04/19 11:16 10/03/19 10/04/19 10/04/19 22:59 06:59 14:59 Intake Total 1300 / 1830 1300 / 3130 Output Total 1500 / 2950 650 / 3600 Balance -200 / -1120 650 / -470 Weight last 48 hrs Weight 198 lb Weight 175 lb Physical Exam Narrative: EXAM NARRATIVE: Pleasant lady who says she feels fine. Const: COMMON NORMALS: no acute distress, average body habitus, patient oriented x3 and well nourished HENMT: COMMON NORMALS: normocephalic and atraumatic HEAD & SCALP: normocephalic and atraumatic Eye: COMMON NORMALS: Equal, round and reactive pupils present, EOMs intact bilaterally and conjunctivae normal CONJUNCTIVA: Yes conjunctivae normal PUPIL: Yes Equal, round and reactive pupils present Neck/C-Spine: COMMON NORMALS: no JVD Lymph: LYMPHATIC: no lymphadenopathy noted Chest: COMMONS NORMALS: normal inspection of the chest and normal palpation of entire chest wall CHEST: Yes abnormal inspection of the chest Resp: COMMON NORMALS: normal respiratory effort, No retractions, No use of accessory muscles, clear to auscultation bilaterally and percussion normal AUSCULTATION: clear to auscultation bilaterally PERCUSSION: percussion normal Cardio: COMMON NORMALS: no JVD, regular rate, regular rhythm, S1 normal heart sound present, S2 normal heart sound present, No gallops present (Cardio) and No murmurs present (Cardio) RATE: regular rate RHYTHM: regular rhythm HEART SOUNDS: S1 normal heart sound present and S2 normal heart sound present GI: COMMON NORMALS: Normal to inspection, nondistended, normoactive bowel sounds present, Soft to palpation, non-tender and No hepatosplenomegaly present PALPATION: Yes Soft to palpation and Yes No hepatosplenomegaly present Extremity: COMMON NORMALS: normal to inspection, full ROM, capillary refill normal and no clubbing, cyanosis or edema Neuro: COMMON NORMALS: patient oriented x3, CN's II-XII intact bilaterally and moves all extremities Psych: COMMON NORMALS: mental status grossly normal, Normal thought process present and cooperative THOUGHT PROCESS: Normal thought process present Skin: COMMON NORMALS: no rashes or lesions noted and no wounds GENERAL SKIN EXAM: no rashes or lesions noted Urinary Catheter Management^: Mcginnis: Cath Placed During This Visit: yes Urethral Indwelling: Yes Reason for Continuing Indwelling Catheter: Accurate Measurement of Urinary Output in Critically Ill Patients Urinary Catheter Date of Insertion: 10/01/19 Urinary Catheter Time of Insertion: 07:09 Data Micro: Micro: Microbiology 10/01/19 11:00 Urine Culture - Fi nal Urine,Clean Catch 10/03/19 07:10 Urine Culture - Pr eliminary Urine,Clean Catch Staphylococcus species 10/01/19 09:00 Gram Stain - Final Sputum - Endotrac heal Tube Aspirate Sputum Culture - P reliminary A&P Assessment and plan (1) Acute and chronic respiratory failure ([id number]): Volume overload with resulting pulmonary edema related to renal failure. Diuretic therapy has accomplished improved respiratory status and now patient is asymptomatic. Status: Acute Qualifiers: Respiratory failure complication: hypoxia and hypercapnia Qualified Code(s): J96.21 - Acute and chronic respiratory failure with hypoxia; J96.22 - Acute and chronic respiratory failure with hypercapnia (2) Congestive heart failure: Acute volume overload possibly exacerbated by dietary sodium in combination with worsening renal failure. She has no wall motion abnormality on echo but has diastolic dysfunction that puts her at risk for volume related pulmonary edema. Continue diuretic therapy. Status: Acute Qualifiers: Heart failure chronicity: acute on chronic Heart failure type: diastolic Qualified Code(s): I50.33 - Acute on chronic diastolic (congestive) heart failure (3) Non-ST elevation DE (NSTEMI): Elevated cardiac enzymes not unexpected in this setting. For michelle-operative management avoid tachycardia and add nitrates to current medical plan. Would not recommend heart catheterization at this time as contrast nephropathy risk is high and given low risk nature of surgery would not be indicated. Volume control during surgery with post oprative diuretic recommended. Imdur 15 mg. Status: Acute (4) Mitral regurgitation: Mitral regurgitation likely complicated by volume overload. Avoid volume overload. Status: Acute (5) LBBB (left bundle branch block): Appears to be old and stable. Status: Acute Consult Attestations Medical Necessity Statement: Acute renal failure with diastolic heart failure acute. Time Spent in Patient Care: Greater than 35 minutes (>than 50% of time spent in counselling and/or direct pt care on unit). 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
[2019-10-04 12:43] LABS: Glucose Point of Care 98 mg/dL (70-110)
[2019-10-04 16:41] LABS: Glucose Point of Care 76 mg/dL (70-110)
--- NOTE | 2019-10-04 16:41 | PC.NURSE ---
PATIENT EASY TRANSFER FROM BED TO CHA[place]. [place] [facility] [place]. PATIENT STATES SHE TAKES IMMODIUM AND ANTIGAS DAILY TWO TABS BUT THAT DAILY LOMOTIL WILL WORK JUST WELL FOR HER. SHE STATED SHE WOULD NOT HAVE HER PD CATHETER ACCESSED UNTIL SHE SPOKE TO DR TERESA, DR ELLSWORTH CALLED DR TERESA AND TOLD HIM TO TALK TO PATIENT. THE PORTABLE PHONE WAS NOT WORKING AND HE WAS LOST ON THE LINE. THE PATIENTS CELL PHONE NUMBER WAS GIVEN TO DR ELLSWORTH TO GIVE TO BRII AND THEN DR TERESA CALLED AND GOT THE NUMBER FROM NURSING STAFF . SHE AGREED TO HAVE THE CATHETER ACCESSED THEN DR DUONG CAME THE BEDSIDE AND DISCUSSED THAT IT MAY BE RISKY FOR HER TO HAVE IT DONE, DR ELLSWORTH NOTIFIED AND HE CALLED THE SURGEON TO ENCOURAGE SURGICAL CLEARANCE. PATIENT WENT TO VQ SCAN PER WC, NO SOB, NO PAIN. DRINKING AND PRODUCING URINE WELL. POTASSIUM LEVEL RISING AND PATIENHAVING SOME LEG STIFFNESS. HEART RYTHM NOTABLE LEFT BBB AND FREQ PVCS . DRS AWARE OF TROPONINS, AND RHYTHM. BLOOD SUGARS HAVE BEEN LOW TO NORMAL. ORANGE JUICE GIVEN AT 1630 FOR 76 GLUCOSE. DAUGHTER UPDATED. PATIENT HAS PHONE BY HER BED.
[2019-10-04] MEDS: levoFLOXacin 750 mg Tablet PO (17:46)
[2019-10-04 21:17] LABS: Glucose Point of Care 122 mg/dL (70-110)
[2019-10-05] VITALS (19 sets, daily range): BP systolic 114–182; BP diastolic 49–91; PULSE 72–86; RESP 12–33; TEMP 36.4–37.2; O2SAT 94–99
[2019-10-05] MEDS: hyDRALAzine 20 mg/mL INJ 1 mL 10 MG IVP (02:26)
[2019-10-05 04:35] LABS: Basophils % 0.4 %; Eosinophils # 0.3 10^3/uL (0.0-0.8); Eosinophils % 3.3 %; Hematocrit 26.3 % (37.0-47.0); Hemoglobin 7.8 g/dL (11.5-15.3); Lymphocytes # 1.1 10^3/uL (0.8-4.8); Lymphocytes % 11.9 %; Mean Corpuscular HGB Conc 29.7 g/dL (30.0-36.0); Mean Corpuscular Hemoglobin 27.3 pg (28.0-34.0); Mean Platelet Volume 9.9 fL (7.4-10.4); Monocytes # 0.6 10^3/uL (0.2-0.9); Monocytes % 6.2 %; Neutrophils # 6.9 10^3/uL (1.8-7.7); Neutrophils % 77.8 %; Nucleated Red Blood Cells % 0 %; Platelet Count 334 10^3/cmm (130-400); Red Blood Count 2.86 10^6/uL (4.1-5.3); Red Cell Distribution Width 15.9 % (12.1-15.1); White Blood Count 8.9 10^3/uL (4.0-10.0)
[2019-10-05 05:08] LABS: Alanine Aminotransferase 48 U/L (0-33); Albumin Level 3.3 g/dL (3.5-5.2); Alkaline Phosphatase 117 IU/L (35-105); Anion Gap 20.6 (5-19); Aspartate Amino Transferase 29 U/L (0-32); Blood Urea Nitrogen 66 mg/dL (8-23); Calcium 9.1 mg/dL (8.5-10.5); Carbon Dioxide 17 mmol/L (22-29); Chloride 109 mmol/L (98-107); Globulin 3.4 g/dL (1.3-4.6); Glucose 103 mg/dL (65-115); Osmolality Calculated 293 mOsm/kg (285-295); Phosphorus 5.8 mg/dL (2.5-4.5); Potassium 4.6 mmol/L (3.5-5.1); Sodium 142 mmol/L (136-145); Total Bilirubin 0.3 mg/dL (0.15-1.2); Total Protein 6.7 g/dL (6.6-8.7)
[2019-10-05 07:26] LABS: Glucose Point of Care 115 mg/dL (70-110)
--- NOTE | 2019-10-05 08:07 | PM.PN ---
Subjective Subjective: Interval history: feels better. no n/v/f/c/ramirez/d. denies sob Medications: Reviewed: Yes Medication Review Details: Current Medications Acetaminophen (Tylenol) 650 mg PO Q6H PRN PRN Reason: MILD PAIN Albuterol/Ipratropium (Duoneb) 3 ml INHALATION Q6H PRN PRN Reason: SHORTNESS OF BREATH Albuterol/Ipratropium (Duoneb) 3 ml INHALATION QID.RESPIRATORY [facility] Last Admin: 10/04/19 19:36 Dose: 3 ml Documented by: Amlodipine Besylate (Norvasc) 5 mg PO DAILY [facility] Last Admin: 10/04/19 09:17 Dose: 5 mg Documented by: Calcitriol (Rocaltrol) 0.25 mcg PO DAILY [facility] Last Admin: 10/04/19 09:16 Dose: 0.25 mcg Documented by: Dextrose (D50w) 25 ml IVP ONCE PRN; Protocol PRN Reason: hypoglycemia protocol Dextrose (D50w) 50 ml IVP PRN PRN; Protocol PRN Reason: hypoglycemia protocol Diphenoxylate HCl/Atropine (Lomotil) 2 tab PO DAILY [facility] Last Admin: 10/04/19 09:41 Dose: 2 tab Documented by: Epoetin Jose (Procrit) 10,000 unit SUBCUT WEEKLY [facility] Last Admin: 10/04/19 08:54 Dose: 10,000 unit Documented by: Glucagon (Glucagen) 1 mg IM ONCE PRN; Protocol PRN Reason: Adult Acute Hypoglycemia Prot. Hydralazine HCl (Apresoline) 10 mg IVP Q4H PRN PRN Reason: elevated blood pressure Last Admin: 10/05/19 02:26 Dose: 10 mg Documented by: Hydralazine HCl (Apresoline) 25 mg PO TID [facility] Last Admin: 10/04/19 21:18 Dose: 25 mg Documented by: Piperacillin Sod/Tazobactam (Sod 3.375 gm/ Sodium Chloride) 50 mls @ 12.5 mls/hr IV Q12H [facility]; Protocol Last Infusion: 10/04/19 17:28 Dose: Infused Documented by: Dextrose (D5w) 500 mls @ 100 mls/hr IV ONCE PRN; Protocol PRN Reason: Adult Acute Hypoglycemia Prot Ferric Sodium Gluconate 125 mg (/ Sodium Chloride) 110 mls @ 110 mls/hr IV Q24H [facility] Stop: 10/11/19 09:29 Last Infusion: 10/04/19 09:54 Dose: Infused Documented by: Insulin Aspart (Novolog) 0 unit SUBCUT BEDTIME [facility]; Protocol Last Admin: 10/04/19 21:15 Dose: Not Given Documented by: Insulin Aspart (Novolog) 0 unit SUBCUT TIDWM [facility]; Protocol Last Admin: 10/04/19 17:43 Dose: Not Given Documented by: Isosorbide Mononitrate (Imdur) 15 mg PO DAILY [facility] Levofloxacin (Levaquin) 500 mg PO EVERY OTHER DAY [facility]; Protocol Metoprolol Tartrate (Lopressor) 25 mg PO BID [facility] Last Admin: 10/04/19 17:00 Dose: 25 mg Documented by: Ondansetron HCl (Zofran) 4 mg IVP Q6H PRN PRN Reason: NAUSEA AND VOMITING Pantoprazole Sodium (Protonix) 40 mg IVP DAILY [facility] Last Admin: 10/04/19 09:17 Dose: 40 mg Documented by: Sevelamer Carbonate (Renvela) 800 mg PO TID [facility] Last Admin: 10/04/19 21:18 Dose: 800 mg Documented by: Sodium Bicarbonate (Sodium Bicarbonate) 650 mg PO TID [facility] Last Admin: 10/04/19 21:18 Dose: 650 mg Documented by: Vitals/I&O/Wt Last Vital Signs Temp 98.2 F 10/05/19 06:00 Pulse 81 10/05/19 06:00 Resp 15 10/05/19 06:00 BP 155/64 10/05/19 06:00 Pulse Ox 95 10/05/19 06:00 10/04/19 10/05/19 10/05/19 22:59 06:59 14:59 Intake Total 550 / 2210 Output Total 900 / 2300 1200 / 3500 Balance -350 / -90 -1200 / -1290 Weight last 48 hrs Weight 88.451 kg Weight 89.811 kg Physical Exam Narrative: EXAM NARRATIVE: obese woman using NC02, comfortable in bed heent- nc/at, eomi, anicteric neck supple lungs improved air movement b/l heart rrr, +RUCHI abd soft, nt, nd, +BS ext dec b/l leg edema + ambrose w/ excellent uop neuro= a,a, o x 3, from x 4, + pulses Urinary Catheter Management^: Ambrose: Cath Placed During This Visit: yes Urethral Indwelling: Yes Reason for Continuing Indwelling Catheter: Accurate Measurement of Urinary Output in Critically Ill Patients Urinary Catheter Date of Insertion: 10/01/19 Urinary Catheter Time of Insertion: 07:09 Data : 10/05/19 03:39 10/05/19 03:39 Micro: Microbiology 10/01/19 09:00 Gram Stain - Final Sputum - Endotracheal Tube Aspirate Sputum Culture - Final 10/01/19 11:00 Urine Culture - Final Urine,Clean Catch 10/03/19 07:10 Urine Culture - Preliminary Urine,Clean Catch Staphylococcus species A&P Additional A&P Information 69 yr old female w/ VDRF- now extubated 1. SISSY on CKD stage 5 - She has been teetering on the edge of ESRD for some time, with baseline creatinine of 3.9mg/dL, eGFR 11 - pt hs uremic symptoms- i informed her that she would benefit from renal replacemnt therapy soon. -i advised ex-planting her peritoneal dialysis catheter, and Dr. Nicole is willing to today. -even if we had PD catheter externalized today, she would need over a week of training -also monitor catheter as placed over 2 years ago, may need altepase -discussed w/ Dr. Dorsey who agrees w/ ex-planting PD catheter -f/u renal-pulm serologies 2. diastolic dysfunction, LVH, normal wall motion and moderate to severe central MR. As per Dr. Varela 3. pna on vanco/ zosyn wbc improved -dose vanco, aim for trough under 19 cxr improved 4. anemia- low iron sat and ferritin -iv iron and epo if hgb drops under 7, may benefit from prbc tx 5. met acidosis- na bicarb 6. bone- mineral- metabolism of ckd stage 5 -hyperphosphatemia- improving on phos binder. 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
[2019-10-05] MEDS: ipratropium-albuterol 3 mL Neb INHALATION ×3 (08:09→20:43)
[2019-10-05] MEDS: sevelamer 800 mg Tablet PO ×2 (08:36→21:26)
[2019-10-05] MEDS: metoprolol tartrate 25 mg Tablet PO ×2 (08:36→16:55)
[2019-10-05] MEDS: pantoprazole 40 mg SDV IVP (08:36)
[2019-10-05] MEDS: amlodipine 5 mg Tablet PO (08:36)
[2019-10-05] MEDS: sodium bicarbonate 650 mg Tablet PO ×2 (08:36→21:26)
[2019-10-05] MEDS: hyDRALAzine 25 mg Tablet PO ×2 (08:36→21:26)
[2019-10-05] MEDS: isosorbide mononitrate ER 30 mg Tablet 15 MG PO (08:36)
[2019-10-05] MEDS: calcitriol 0.25 mcg Capsule PO (08:36)
[2019-10-05] MEDS: piperacillin-tazobactam 3.375 GM in sodium chloride 0.9% (plus) 50 ML IV (08:37)
[2019-10-05] MEDS: ferric gluconate 125 MG in sodium chloride 0.9% (100 ml) 100 ML 110 MG IV (08:48)
[2019-10-05] MEDS: diphenoxylate/atropine Tablet 2 TAB PO (08:48)
--- NOTE | 2019-10-05 09:39 | PM.PN ---
Subjective Subjective: Interval history: Blood pressure better controlled, had 1200 mL urine output overnight, scheduled for ex-plantation of PD catheter in OR today. Creatinine 5.0, hemoglobin 7.8. Sitting in recliner, no apparent distress, no acute overnight events reported. Remains NPO pending procedure this afternoon. Medications: Reviewed: Yes Medication Review Details: Active Medications Generic Name Dose Route Start Last Admin Trade Name Freq PRN Reason Stop Dose Admin Acetaminophen 650 mg 10/01/19 15:55 Tylenol PO Q6H PRN MILD PAIN Albuterol/Ipratrop ium 3 ml 10/01/19 09:33 Duoneb INHALATION Q6H PRN SHORTNESS OF LAVELL TH Albuterol/Ipratrop ium 3 ml 10/01/19 12:00 10/05/19 08:09 Duoneb INHALATION 3 ml QID.RESPIRATORY S CH Administration Amlodipine Besylat e 5 mg 10/03/19 12:40 10/05/19 08:36 Norvasc PO 5 mg DAILY RAMANI Administration Calcitriol 0.25 mcg 10/04/19 09:00 10/05/19 08:36 Rocaltrol PO 0.25 mcg DAILY ARMANI Administration Dextrose 25 ml 10/01/19 16:00 D50w IVP ONCE PRN hypoglycemia prot ocol Protocol Dextrose 50 ml 10/01/19 16:00 D50w IVP PRN PRN hypoglycemia prot ocol Protocol Diphenoxylate HCl/ Atropine 2 tab 10/04/19 09:30 10/05/19 08:48 Lomotil PO 2 tab DAILY ARMANI Administration Epoetin Jose 10,000 unit 10/04/19 08:00 10/04/19 08:54 Procrit SUBCUT 10,000 unit WEEKLY ARMANI Administration Glucagon 1 mg 10/01/19 16:00 Glucagen IM ONCE PRN Adult Acute Hypog lycemia Prot. Protocol Hydralazine HCl 10 mg 10/03/19 12:38 10/05/19 02:26 Apresoline IVP 10 mg Q4H PRN Administration elevated blood pr essure Hydralazine HCl 25 mg 10/04/19 09:00 10/05/19 08:36 Apresoline PO 25 mg TID ARMANI Administration Dextrose 500 mls @ 100 mls /hr 10/01/19 16:00 D5w IV ONCE PRN Adult Acute Hypog lycemia Prot Protocol Ferric Sodium Gluc harjit 125 mg 110 mls @ 110 mls /hr 10/04/19 08:30 10/05/19 08:48 / Sodium Chlorid e IV 10/11/19 09:29 110 mls/hr Q24H ARMANI Administration Insulin Aspart 0 unit 10/01/19 21:00 10/04/19 21:15 Novolog SUBCUT Not Given BEDTIME ARMANI Protocol Insulin Aspart 0 unit 10/01/19 18:00 10/05/19 08:12 Novolog SUBCUT Not Given TIDWM ARMANI Protocol Isosorbide Mononit rate 15 mg 10/05/19 09:00 10/05/19 08:36 Imdur PO 15 mg DAILY ARMANI Administration Levofloxacin 500 mg 10/06/19 09:00 Levaquin PO EVERY OTHER DAY S CH Protocol Metoprolol Tartrat e 25 mg 10/03/19 18:00 10/05/19 08:36 Lopressor PO 25 mg BID ARMANI Administration Ondansetron HCl 4 mg 10/01/19 15:55 Zofran IVP Q6H PRN NAUSEA AND VOMITI NG Pantoprazole Sodiu m 40 mg 10/02/19 09:00 10/05/19 08:36 Protonix IVP 40 mg DAILY ARMANI Administration Sevelamer Carbonat e 800 mg 10/04/19 09:00 10/05/19 08:36 Renvela PO 800 mg TID ARMANI Administration Sodium Bicarbonate 650 mg 10/03/19 09:00 10/05/19 08:36 Sodium Bicarbona te PO 650 mg TID ARMANI Administration No Known Allergies Allergy (Verified 10/03/19 14:45) Vitals/I&O/Wt Last Vital Signs Temp 98.2 F 10/05/19 06:00 Pulse 84 10/05/19 08:11 Resp 16 10/05/19 08:11 BP 164/68 10/05/19 08:00 Pulse Ox 96 10/05/19 08:11 10/04/19 10/05/19 10/05/19 22:59 06:59 14:59 Intake Total 550 / 2210 Output Total 900 / 2300 1200 / 3500 Balance -350 / -90 -1200 / -1290 Weight last 48 hrs Weight 88.451 kg Weight 89.811 kg Physical Exam Const: COMMON NORMALS: no acute distress, patient oriented x3 and alert GENERAL APPEARANCE: comfortable; not ill appearing NUTRITIONAL APPEARANCE: overweight ORIENTATION/CONSCIOUSNESS: Yes Other orientation findings (sedated) OTHER: -sitting in chair by bedside HENMT: COMMON NORMALS: normocephalic, atraumatic and hearing grossly normal bilaterally HEAD & SCALP: normocephalic and atraumatic MOUTH: other (OGT and orally intubated; ETT-23 cm at lip) Eye: COMMON NORMALS: Equal, round and reactive pupils present, EOMs intact bilaterally and conjunctivae normal CONJUNCTIVA: Yes conjunctivae normal PUPIL: Yes Equal, round and reactive pupils present Neck/C-Spine: COMMON NORMALS: full ROM GENERAL: Yes normal visual inspection and Yes trachea midline Chest: CHEST: Yes Symmetrical chest wall rise Resp: COMMON NORMALS: normal respiratory effort, No retractions and No use of accessory muscles EFFORT & INSPECTION: Yes symmetric chest movement and No tachypneic AUSCULTATION: diminished lung sounds bilateral OTHER: -on RA Cardio: COMMON NORMALS: regular rate, regular rhythm, S1 normal heart sound present, S2 normal heart sound present and No murmurs present (Cardio) RATE: regular rate RHYTHM: regular rhythm HEART SOUNDS: S1 normal heart sound present and S2 normal heart sound present GI: COMMON NORMALS: Normal to inspection, nondistended, normoactive bowel sounds present and Soft to palpation INSPECTION: Yes central obesity PALPATION: Yes Soft to palpation OTHER: -palpable PD catheter (RUQ) : BLADDER/KIDNEY EXAM: Yes catheter in place Catheter type (Female): urethral Extremity: COMMON NORMALS: normal to inspection, no clubbing, cyanosis or edema and no pedal edema Neuro: COMMON NORMALS: patient oriented x3, moves all extremities, no focal motor deficits and no sensory deficits noted SENSORIUM/ORIENTATION: Yes alert Psych: COMMON NORMALS: mental status grossly normal, Normal thought process present, cooperative, normal affect and speech normal SPEECH: Yes normal speech THOUGHT PROCESS: Normal thought process present Skin: COMMON NORMALS: no rashes or lesions noted, no jaundice, no petechiae and no mottling GENERAL SKIN EXAM: no rashes or lesions noted Urinary Catheter Management^: Mcginnis: Cath Placed During This Visit: yes Urethral Indwelling: Yes Reason for Continuing Indwelling Catheter: Accurate Measurement of Urinary Output in Critically Ill Patients Urinary Catheter Date of Insertion: 10/01/19 Urinary Catheter Time of Insertion: 07:09 Data : 10/05/19 03:39 10/05/19 03:39 Micro: Microbiology 10/01/19 09:00 Gram Stain - Final Sputum - Endotracheal Tube Aspirate Sputum Culture - Final 10/01/19 11:00 Urine Culture - Final Urine,Clean Catch 10/03/19 07:10 Urine Culture - Preliminary Urine,Clean Catch Staphylococcus species A&P Assessment and plan (1) Acute kidney injury: -SISSY on CKD stage 5 -has PD catheter in place, not used (placed on 06/2017) -Nephrology evaluation appreciated; no need for emergent dialysis currently but may need PD catheter ex-planted as may need initiation of dialysis if continued renal impairment -Surgery consult by Dr. Glez appreciated; plan for ex-plantation of PD catheter today; NPO after midnight -continue to monitor urine output, has Mcginnis catheter; good urine output; assess daily for removal -renal US unremarkable -noted bilateral renal cortical scarring, mild renal atrophy, mild bilateral perinephric fat stranding; no hydronephrosis on CT -avoid nephrotoxins, renally dose meds -follows up with Dr. Dorsey, is on renal transplant list at [facility] -renal function stable with Cr around 5; continue to monitor renal function closely -off IVF hydration Status: Acute (2) Acute and chronic respiratory failure ([id number]): -Due to significant respiratory distress patient was intubated in the field by EMS -Successfully extubated (10/01) -Imaging reviewed with noted bilateral interstitial edema/infiltrates, worse on the right. Repeat CXR today unremarkable -Associated sepsis initially as noted below with significant lactic acidosis, significant leukocytosis with neutrophilic predominance, hypoxia. Sepsis resolved -on broad-spectrum IV antibiotics with vancomycin/Zosyn, both renally dosed due to underlying renal impairment -Leukocytosis resolved -Lactic acidosis is also improving -Vital signs stable though has been hypertensive, continue to monitor -IV fluid hydration discontinued -Sputum culture prelim-mixed ilan, gram stain shows moderate WBCs, few GPC -Blood cx: prelim negative -COVD-19 negative, off isolation precautions -switched to oral antibiotics with clinical improvement Status: Acute Qualifiers: Respiratory failure complication: hypoxia and hypercapnia Qualified Code(s): J96.21 - Acute and chronic respiratory failure with hypoxia; J96.22 - Acute and chronic respiratory failure with hypercapnia (3) Sepsis: -as evidenced by lactic acidosis, leukocytosis, hypoxia, SISSY Status: Resolved Qualifiers: Acute respiratory failure type: with hypoxia Sepsis acute organ dysfunction status: with acute organ dysfunction Sepsis type: sepsis due to unspecified organism Severe sepsis acute organ dysfunction type: acute respiratory failure Severe sepsis shock status: without septic shock Qualified Code(s): A41.9 - Sepsis, unspecified organism; R65.20 - Severe sepsis without septic shock; J96.01 - Acute respiratory failure with hypoxia (4) Lactic acidosis: -as noted above -improving Status: Acute (5) Metabolic acidosis: -Noted elevated anion gap metabolic acidosis likely secondary to lactic acidosis, acute infection with sepsis and renal impairment -Anion gap closed -off IVF, off vent Status: Acute (6) Non-ST elevation VA (NSTEMI): -suspect this is secondary to demand ischemia in light of acute infection with noted significant renal impairment -Echo: EF=60%, G1DD, moderate to severe MR, mild , mild pulmonary HTN, mild TR -telemetry monitoring -Cardiology consult requested Status: Acute (7) Diarrhea: -C.difficile negative, discontinue contact isolation precautions -patient reports chronic diarrhea and takes lomotil for this, resumed Status: Chronic Qualifiers: Diarrhea type: unspecified type Qualified Code(s): R19.7 - Diarrhea, unspecified (8) Elevated d-dimer: -D-dimer-2.51 -no CTA PE due to renal impairment -low suspicion for PE, V/Q scan-low probability for PE -not a good candidate for AC due to anemia -DIC panel negative Status: Acute (9) Anemia: -acute on chronic anemia of chronic disease secondary to CKD; Hg stable though low (7.8) -baseline Hg appears to be wnl based on last Hg in 2018 of 12.5 -iron very low; on IV iron and EPO -continued drop in Hg though dilutional component due to IVF -continued close monitoring of Hg Status: Acute Qualifiers: Anemia type: due to chronic kidney disease Chronic kidney disease stage: stage 5, not on chronic dialysis Qualified Code(s): N18.5 - Chronic kidney disease, stage 5; D63.1 - Anemia in chronic kidney disease (10) Hypertension: -hypertensive though BP better controlled today, continue to monitor vital signs -on oral antihypertensives, hydralazine PRN Status: Chronic Qualifiers: Hypertension type: essential hypertension Qualified Code(s): I10 - Essential (primary) hypertension (11) Diabetes mellitus type 2, insulin dependent: -A1c-7.0 -Accucheks, ISS, hypoglycemia precautions -consistent carb diet Status: Chronic (12) Chronic kidney disease: -as noted above Status: Chronic Qualifiers: Chronic kidney disease stage: stage 5, not on chronic dialysis Qualified Code(s): N18.5 - Chronic kidney disease, stage 5 (13) Pneumonia: -as noted above Status: Acute Qualifiers: Laterality: bilateral Lung location: lower lobe of lung Pneumonia type: due to unspecified organism Qualified Code(s): J18.9 - Pneumonia, unspecified organism (14) Congestive heart failure: -has known chronic diastolic CHF, acute exacerbation -[id number] (in background of renal impairment) -off IVF hydration -no diuretics due to SISSY -repeat Echo noted above Status: Acute Qualifiers: Heart failure chronicity: acute on chronic Heart failure type: diastolic Qualified Code(s): I50.33 - Acute on chronic diastolic (congestive) heart failure Additional A&P Information -hx of gastric bypass -transaminitis; noted LFT elevation today, previously wnl, no hepatic abnormality on imaging, -PT/OT evaluations appreciated, up with assistance, fall precautions -GI ppx with PPI -DVT ppx with SCDs, avoid AC due to anemia -Dispo: came from home -Code status: FULL code -transfer to floor for continued care post-op if appropriate Attestations Medical Necessity Statement*: Patient requires hospitalization for continued management of SISSY on CKD, needs continued monitoring of renal function, scheduled for ex-plantation of PD catheter today. Time Spent in Patient Care: 16 - 35 minutes (>than 50% of time spent in counselling and/or direct pt care on unit). Coding Level of Care Code Acute [employer] Farmer for Chg Fwd Exam Comprehensive Diagnoses Acute kidney injury N17.9 Acute and chronic respiratory failure ([id number]) J96.21; J96.22 Respiratory failure complication: hypoxia and hypercapnia Sepsis A41.9; R65.20; J96.01 Acute respiratory failure type: with hypoxia Sepsis acute organ dysfunction status: with acute organ dysfunction Sepsis type: sepsis due to unspecified organism Severe sepsis acute organ dysfunction type: acute respiratory failure Severe sepsis shock status: without septic shock Lactic acidosis E87.2 Metabolic acidosis E87.2 Non-ST elevation VA (NSTEMI) I21.4 Diarrhea R19.7 Diarrhea type: unspecified type Elevated d-dimer R79.89 Anemia N18.5; D63.1 Anemia type: due to chronic kidney disease Chronic kidney disease stage: stage 5, not on chronic dialysis Hypertension I10 Hypertension type: essential hypertension Diabetes mellitus type 2, insulin dependent E11.9; Z79.4 Chronic kidney disease N18.5 Chronic kidney disease stage: stage 5, not on chronic dialysis Pneumonia J18.9 Laterality: bilateral Lung location: lower lobe of lung Pneumonia type: due to unspecified organism Congestive heart failure I50.33 Heart failure chronicity: acute on chronic Heart failure type: diastolic
[2019-10-05 11:15] LABS: Glucose Point of Care 113 mg/dL (70-110)
[2019-10-05] MEDS: lanolin oint 7 gm 1 APPLIC TOPICAL (11:40)
--- NOTE | 2019-10-05 13:24 | ANES.PREANE2 ---
Pre-Anesthetic Assessment Pre-Anesthetic Assessment: Height/Weight: Height 1.68 m Weight 88.451 kg Temp Pulse Resp BP Pulse Ox 98.2 F 84 18 134/56 96 10/05/19 06:00 10/05/19 12:00 10/05/19 12:00 10/05/19 12:00 10/05/19 12:00 Preop Diagnosis: End-stage renal disease Proposed Procedure: Operation Date: 10/04/19 09:00 Proposed Procedures p Peritoneal Catheter Insertion/adjustment, possible replacement(Right) - Gary Nicole MD Operation Date: 10/05/19 13:55 Proposed Procedures p Laparoscopic Peritoneal Cath adjustment poss replacement(Not Applicable) - Gary Nicole MD Social: Social History: No alcohol and No tobacco Exam: Pre-Anes Outpt Exam: alert, oriented x 3, clear to auscultation bilaterally and regular rate & rhythm Airway: Submandibular: WNL Cervical ROM: WNL MP: 2 Dentition: Other (poor dentation) History/ROS: No significant history except as noted Pulmonary: Pulmonary: YOO CV/HEM: CV/HEM: Arrythmia (LBBB), CHF, HTN and NM : : Chronic renal failure Hepatic: Hepatic: None reported GI: GI: None reported Metabolic: Metabolic: DM [facility] [place]/skel: Musc/skel: OA/DJD Neuropsych: Neuropsych: None reported Anesthetic Plan: ASA status: 4 Anesthesia: Anesthesia Evaluation, General and MAC Risk of > 500 ml blood loss (7ml/kg in children): No Meds/Allergies Current Medications: Current Medications Generic Name Dose Route Start Last Admin Trade Name Calebq PRN Reason Stop Dose Admin Albuterol/Ipratrop ium 3 ml 10/01/19 12:00 10/05/19 11:31 Duoneb INHALATION 3 ml QID.RESPIRATORY S CH Administration Amlodipine Besylat e 5 mg 10/03/19 12:40 10/05/19 08:36 Norvasc PO 5 mg DAILY ARMANI Administration Calcitriol 0.25 mcg 10/04/19 09:00 10/05/19 08:36 Rocaltrol PO 0.25 mcg DAILY ARMANI Administration Diphenoxylate HCl/ Atropine 2 tab 10/04/19 09:30 10/05/19 08:48 Lomotil PO 2 tab DAILY ARMANI Administration Epoetin Jose 10,000 unit 10/04/19 08:00 10/04/19 08:54 Procrit SUBCUT 10,000 unit WEEKLY ARMANI Administration Hydralazine HCl 10 mg 10/03/19 12:38 10/05/19 02:26 Apresoline IVP 10 mg Q4H PRN Administration elevated blood pr essure Hydralazine HCl 25 mg 10/04/19 09:00 10/05/19 08:36 Apresoline PO 25 mg TID ARMANI Administration Ferric Sodium Gluc harjit 125 mg 110 mls @ 110 mls /hr 10/04/19 08:30 10/05/19 08:48 / Sodium Chlorid e IV 10/11/19 09:29 110 mls/hr Q24H ARMANI Administration Insulin Aspart 0 unit 10/01/19 21:00 10/04/19 21:15 Novolog SUBCUT Not Given BEDTIME [facility] Protocol Insulin Aspart 0 unit 10/01/19 18:00 10/05/19 11:17 Novolog SUBCUT Not Given TIDWM [facility] Protocol Isosorbide Mononit rate 15 mg 10/05/19 09:00 10/05/19 08:36 Imdur PO 15 mg DAILY ARMANI Administration Lanolin 1 applic 10/05/19 11:33 10/05/19 11:40 Lanolin Oint TOPICAL 1 tube PRN PRN Administration DRYNESS Metoprolol Tartrat e 25 mg 10/03/19 18:00 10/05/19 08:36 Lopressor PO 25 mg BID ARMANI Administration Pantoprazole Sodiu m 40 mg 10/02/19 09:00 10/05/19 08:36 Protonix IVP 40 mg DAILY ARMANI Administration Sevelamer Carbonat e 800 mg 10/04/19 09:00 10/05/19 08:36 Renvela PO 800 mg TID ARMANI Administration Sodium Bicarbonate 650 mg 10/03/19 09:00 10/05/19 08:36 Sodium Bicarbona te PO 650 mg TID ARMANI Administration Additional Medication Information: Active Medications Generic Name Dose Route Start Last Admin Trade Name Freq PRN Reason Stop Dose Admin Acetaminophen 650 mg 10/01/19 15:55 Tylenol PO Q6H PRN MILD PAIN Albuterol/Ipratrop ium 3 ml 10/01/19 09:33 Duoneb INHALATION Q6H PRN SHORTNESS OF LAVELL TH Albuterol/Ipratrop ium 3 ml 10/01/19 12:00 10/05/19 08:09 Duoneb INHALATION 3 ml QID.RESPIRATORY S CH Administration Amlodipine Besylat e 5 mg 10/03/19 12:40 10/05/19 08:36 Norvasc PO 5 mg DAILY ARMANI Administration Calcitriol 0.25 mcg 10/04/19 09:00 10/05/19 08:36 Rocaltrol PO 0.25 mcg DAILY ARMANI Administration Dextrose 25 ml 10/01/19 16:00 D50w IVP ONCE PRN hypoglycemia prot ocol Protocol Dextrose 50 ml 10/01/19 16:00 D50w IVP PRN PRN hypoglycemia prot ocol Protocol Diphenoxylate HCl/ Atropine 2 tab 10/04/19 09:30 10/05/19 08:48 Lomotil PO 2 tab DAILY ARMANI Administration Epoetin Jose 10,000 unit 10/04/19 08:00 10/04/19 08:54 Procrit SUBCUT 10,000 unit WEEKLY ARMANI Administration Glucagon 1 mg 10/01/19 16:00 Glucagen IM ONCE PRN Adult Acute Hypog lycemia Prot. Protocol Hydralazine HCl 10 mg 10/03/19 12:38 10/05/19 02:26 Apresoline IVP 10 mg Q4H PRN Administration elevated blood pr essure Hydralazine HCl 25 mg 10/04/19 09:00 10/05/19 08:36 Apresoline PO 25 mg TID ARMANI Administration Dextrose 500 mls @ 100 mls /hr 10/01/19 16:00 D5w IV ONCE PRN Adult Acute Hypog lycemia Prot Protocol Ferric Sodium Gluc harjit 125 mg 110 mls @ 110 mls /hr 10/04/19 08:30 10/05/19 08:48 / Sodium Chlorid e IV 10/11/19 09:29 110 mls/hr Q24H ARMANI Administration Insulin Aspart 0 unit 10/01/19 21:00 10/04/19 21:15 Novolog SUBCUT Not Given BEDTIME ARMANI Protocol Insulin Aspart 0 unit 10/01/19 18:00 10/05/19 08:12 Novolog SUBCUT Not Given TIDWM ARMANI Protocol Isosorbide Mononit rate 15 mg 10/05/19 09:00 10/05/19 08:36 Imdur PO 15 mg DAILY ARMANI Administration Levofloxacin 500 mg 10/06/19 09:00 Levaquin PO EVERY OTHER DAY S Protocol Metoprolol Tartrat e 25 mg 10/03/19 18:00 10/05/19 08:36 Lopressor PO 25 mg BID ARMANI Administration Ondansetron HCl 4 mg 10/01/19 15:55 Zofran IVP Q6H PRN NAUSEA AND VOMITI NG Pantoprazole Sodiu m 40 mg 10/02/19 09:00 10/05/19 08:36 Protonix IVP 40 mg DAILY ARMANI Administration Sevelamer Carbonat e 800 mg 10/04/19 09:00 10/05/19 08:36 Renvela PO 800 mg TID ARMANI Administration Sodium Bicarbonate 650 mg 10/03/19 09:00 10/05/19 08:36 Sodium Bicarbona te PO 650 mg TID ARMANI Administration No Known Allergies Allergy (Verified 10/03/19 14:45) PFSH Anesthesia PFSH: Medical History (Updated 10/05/19 @ 13:35 by Deepak Aguilar MD) Acute and chronic respiratory failure ([id number]) Acute kidney injury Anemia Chronic kidney disease Congestive heart failure Diabetes mellitus type 2, insulin dependent Diarrhea Elevated d-dimer Hypertension Lactic acidosis LBBB (left bundle branch block) Metabolic acidosis Mitral regurgitation Non-ST elevation NM (NSTEMI) Peritoneal dialysis catheter in place Pneumonia Surgical History History of cholecystectomy History of gastric bypass History of hemorrhoidectomy History of sinus surgery Status post insertion of dialysis catheter Peritoneal dialysis catheter placed by Dr. Orozco Family History Mother Diabetes Congestive heart failure Father CAD (coronary artery disease) Social History Smoking and tobacco status: unknown if ever smoked Supplemental PFSH Information: Unable to obtain any additional past medical history, past surgical history or family or social history due to clinical condition Data Anesthesia CBC & Chem 7: 10/05/19 03:39 10/05/19 03:39 Other Labs: Laboratory Results - last 48 hr 10/03/19 10/03/19 10/04/19 16:36 20:23 04:25 WBC 8.7 RBC 2.72 L Hgb 7.6 L Hct 25.6 L MCV 94.1 MCH 27.9 L MCHC 29.7 L RDW 16.1 H Plt Count 312 MPV 10.2 Neut % (Auto) 74.1 Lymph % (Auto) 16.3 Maries % (Auto) 5.3 Eos % (Auto) 3.4 Baso % (Auto) 0.6 Neut # (Auto) 6.5 Lymph # (Auto) 1.4 Maries # (Auto) 0.5 Eos # (Auto) 0.3 Baso # (Auto) 0.1 Nucleated RBC % (auto) 0 Nucleated RBCs # 0.0 Sodium Potassium Chloride Carbon Dioxide Anion Gap BUN Creatinine Glucose POC Glucose 146 189 Calculated Osmolality Calcium Phosphorus Magnesium Total Bilirubin AST ALT Alkaline Phosphatase Total Protein Albumin Globulin PTH Intact Calcium (PTH Intact) 10/04/19 10/04/19 10/04/19 04:25 04:25 07:44 WBC RBC Hgb Hct MCV MCH MCHC RDW Plt Count MPV Neut % (Auto) Lymph % (Auto) Maries % (Auto) Eos % (Auto) Baso % (Auto) Neut # (Auto) Lymph # (Auto) Maries # (Auto) Eos # (Auto) Baso # (Auto) Nucleated RBC % (auto) Nucleated RBCs # Sodium 141 Potassium 4.8 Chloride 108 H Carbon Dioxide 19 L Anion Gap 18.8 BUN 71 H Creatinine 5.2 H Glucose 99 POC Glucose 103 Calculated Osmolality 291 Calcium 8.7 Phosphorus 6.4 H Magnesium 3.1 H Total Bilirubin 0.3 AST 84 H ALT 74 H Alkaline Phosphatase 151 H Total Protein 6.6 Albumin 3.3 L Globulin 3.3 PTH Intact 346.7 H Calcium (PTH Intact) 8.2 L 10/04/19 10/04/19 10/04/19 12:38 16:25 21:13 WBC RBC Hgb Hct MCV MCH MCHC RDW Plt Count MPV Neut % (Auto) Lymph % (Auto) Maries % (Auto) Eos % (Auto) Baso % (Auto) Neut # (Auto) Lymph # (Auto) Maries # (Auto) Eos # (Auto) Baso # (Auto) Nucleated RBC % (auto) Nucleated RBCs # Sodium Potassium Chloride Carbon Dioxide Anion Gap BUN Creatinine Glucose POC Glucose 98 76 122 Calculated Osmolality Calcium Phosphorus Magnesium Total Bilirubin AST ALT Alkaline Phosphatase Total Protein Albumin Globulin PTH Intact Calcium (PTH Intact) 10/05/19 10/05/19 10/05/19 03:39 03:39 07:15 WBC 8.9 RBC 2.86 L Hgb 7.8 L Hct 26.3 L MCV 92.0 MCH 27.3 L MCHC 29.7 L RDW 15.9 H Plt Count 334 MPV 9.9 Neut % (Auto) 77.8 Lymph % (Auto) 11.9 Maries % (Auto) 6.2 Eos % (Auto) 3.3 Baso % (Auto) 0.4 Neut # (Auto) 6.9 Lymph # (Auto) 1.1 Maries # (Auto) 0.6 Eos # (Auto) 0.3 Baso # (Auto) 0.0 Nucleated RBC % (auto) 0 Nucleated RBCs # 0.0 Sodium 142 Potassium 4.6 Chloride 109 H Carbon Dioxide 17 L Anion Gap 20.6 H BUN 66 H Creatinine 5.0 H Glucose 103 POC Glucose 115 Calculated Osmolality 293 Calcium 9.1 Phosphorus 5.8 H Magnesium 3.0 H Total Bilirubin 0.3 AST 29 ALT 48 H Alkaline Phosphatase 117 H Total Protein 6.7 Albumin 3.3 L Globulin 3.4 PTH Intact Calcium (PTH Intact) 10/05/19 11:13 WBC RBC Hgb Hct MCV MCH MCHC RDW Plt Count MPV Neut % (Auto) Lymph % (Auto) Maries % (Auto) Eos % (Auto) Baso % (Auto) Neut # (Auto) Lymph # (Auto) Maries # (Auto) Eos # (Auto) Baso # (Auto) Nucleated RBC % (auto) Nucleated RBCs # Sodium Potassium Chloride Carbon Dioxide Anion Gap BUN Creatinine Glucose POC Glucose 113 Calculated Osmolality Calcium Phosphorus Magnesium Total Bilirubin AST ALT Alkaline Phosphatase Total Protein Albumin Globulin PTH Intact Calcium (PTH Intact) Micro: Microbiology 10/01/19 09:00 Gram Stain - Final Sputum - Endotracheal Tube Aspirate Sputum Culture - Final 10/01/19 11:00 Urine Culture - Final Urine,Clean Catch 10/03/19 07:10 Urine Culture - Preliminary Urine,Clean Catch Staphylococcus species Cardiac Studies: No Data to Display
[2019-10-05] MEDS: lidocaine 2% INJ 20 mL INJECTION (15:00)
--- NOTE | 2019-10-05 15:35 | P.OP_ITS ---
Operative Report Date of procedure: October 05, 2019 Pre-op Diagnosis: End-stage renal disease Post-op diagnosis: same Post-op Findings: Well buried peritoneal dialysis catheter at the subcutaneous level Procedure Done: Exteriorization of peritoneal dialysis catheter Specimens removed/disposition: none Surgeon: Gary Nicole Setter Induction Heating Equipment: Surgical bryce Gee Circulating nurse Markie Anesthesia: MAC (gas appliance installer Ranjana and Agosto) Estimated blood loss (mL): 5 Condition: stable Disposition: ICU Brief History: Full H&P per chart After thorough history physical examination and reviewing the chart and images with my personal interpretation, per nephrology recommendations patient needed exteriorization of the peritoneal dialysis catheter that was placed about 2 years ago and has been on the kidney transplant list, patient was admitted recently to the hospital service because of respiratory distress, and her kidney functions have been fluctuating and there was a concern of potential need for dialysis, general surgery was consulted for evaluation and potential exteriorization of the catheter. Informed consent per chart Procedure: After identifying the patient in the holding area, was taken to the operating room, placed in supine position, IV propofol was given by anesthesia, patient was already on antibiotics Time-out was done verifying the patient's name/date of /planned procedure and destination after the procedure, all were in agreement Prep and drape of the abdomen was done under the usual sterile technique, after palpation of the site of the catheter towards the right side of the abdomen skin incision was created and dissection further to the subcutaneous layer was done and exteriorization of the catheter was achieved after taking all adhesions down, at this point the catheter was flushed thoroughly with sterile warm saline and allowed to drain which did efficiently, I decided at this point to create a counter stab incision further lateral to bring about the catheter, and the index incision was closed in layers after irrigation, and a 3-0 nylon was placed around the exit site of the catheter to secure it in place. Dry dressing was then applied Patient tolerated the procedure well and was taken out to the ICU directly I was present for the whole entire procedure
[2019-10-05 18:09] LABS: Glucose Point of Care 115 mg/dL (70-110)
--- NOTE | 2019-10-05 19:44 | PC.NURSE ---
REPORT CALLED TO TYLER REY.
[2019-10-05 21:09] LABS: Glucose Point of Care 135 mg/dL (70-110)
[2019-10-06] VITALS (9 sets, daily range): BP systolic 134–181; BP diastolic 65–72; PULSE 73–82; RESP 16–20; TEMP 36.5–36.9; O2SAT 93–97
[2019-10-06 05:31] LABS: Basophils % 0.4 %; Eosinophils # 0.3 10^3/uL (0.0-0.8); Eosinophils % 3.4 %; Hematocrit 24.7 % (37.0-47.0); Hemoglobin 7.3 g/dL (11.5-15.3); Lymphocytes # 1.4 10^3/uL (0.8-4.8); Lymphocytes % 17.5 %; Mean Corpuscular HGB Conc 29.6 g/dL (30.0-36.0); Mean Corpuscular Hemoglobin 27.4 pg (28.0-34.0); Mean Corpuscular Volume 92.9 fL (81-99); Mean Platelet Volume 9.7 fL (7.4-10.4); Monocytes # 0.6 10^3/uL (0.2-0.9); Monocytes % 7.5 %; Neutrophils # 5.8 10^3/uL (1.8-7.7); Neutrophils % 70.7 %; Nucleated Red Blood Cells % 0 %; Platelet Count 318 10^3/cmm (130-400); Red Blood Count 2.66 10^6/uL (4.1-5.3); White Blood Count 8.3 10^3/uL (4.0-10.0)
[2019-10-06 05:47] LABS: Alanine Aminotransferase 32 U/L (0-33); Albumin Level 3.4 g/dL (3.5-5.2); Alkaline Phosphatase 95 IU/L (35-105); Anion Gap 18.7 (5-19); Aspartate Amino Transferase 16 U/L (0-32); Blood Urea Nitrogen 57 mg/dL (8-23); Calcium 8.3 mg/dL (8.5-10.5); Carbon Dioxide 18 mmol/L (22-29); Chloride 108 mmol/L (98-107); Globulin 2.7 g/dL (1.3-4.6); Glucose 103 mg/dL (65-115); Osmolality Calculated 289 mOsm/kg (285-295); Phosphorus 5.3 mg/dL (2.5-4.5); Potassium 4.7 mmol/L (3.5-5.1); Sodium 140 mmol/L (136-145); Total Bilirubin 0.2 mg/dL (0.15-1.2); Total Protein 6.1 g/dL (6.6-8.7)
[2019-10-06 06:50] LABS: Glucose Point of Care 121 mg/dL (70-110)
--- NOTE | 2019-10-06 07:11 | PM.PN ---
Subjective Subjective: Interval history: seen and examined. wants to go home. tired. denies n/v/f/c/ramirez/d/sob Medications: Reviewed: Yes Medication Review Details: Current Medications Acetaminophen (Tylenol) 650 mg PO Q6H PRN PRN Reason: MILD PAIN Albuterol/Ipratropium (Duoneb) 3 ml INHALATION Q6H PRN PRN Reason: SHORTNESS OF BREATH Albuterol/Ipratropium (Duoneb) 3 ml INHALATION QID.[facility]ATORY [facility] Last Admin: 10/05/19 20:43 Dose: 3 ml Documented by: Amlodipine Besylate (Norvasc) 5 mg PO DAILY [facility] Last Admin: 10/05/19 08:36 Dose: 5 mg Documented by: Calcitriol (Rocaltrol) 0.25 mcg PO DAILY [facility] Last Admin: 10/05/19 08:36 Dose: 0.25 mcg Documented by: Dextrose (D50w) 25 ml IVP ONCE PRN; Protocol PRN Reason: hypoglycemia protocol Dextrose (D50w) 50 ml IVP PRN PRN; Protocol PRN Reason: hypoglycemia protocol Diphenoxylate HCl/Atropine (Lomotil) 2 tab PO DAILY [facility] Last Admin: 10/05/19 08:48 Dose: 2 tab Documented by: Epoetin Jose (Procrit) 10,000 unit SUBCUT WEEKLY [facility] Last Admin: 10/04/19 08:54 Dose: 10,000 unit Documented by: Glucagon (Glucagen) 1 mg IM ONCE PRN; Protocol PRN Reason: Adult Acute Hypoglycemia Prot. Hydralazine HCl (Apresoline) 10 mg IVP Q4H PRN PRN Reason: elevated blood pressure Last Admin: 10/05/19 02:26 Dose: 10 mg Documented by: Hydralazine HCl (Apresoline) 25 mg PO TID [facility] Last Admin: 10/05/19 21:26 Dose: 25 mg Documented by: Dextrose (D5w) 500 mls @ 100 mls/hr IV ONCE PRN; Protocol PRN Reason: Adult Acute Hypoglycemia Prot Ferric Sodium Gluconate 125 mg (/ Sodium Chloride) 110 mls @ 110 mls/hr IV Q24H [facility] Stop: 10/11/19 09:29 Last Admin: 10/05/19 08:48 Dose: 110 mls/hr Documented by: Insulin Aspart (Novolog) 0 unit SUBCUT BEDTIME [facility]; Protocol Last Admin: 10/05/19 21:07 Dose: Not Given Documented by: Insulin Aspart (Novolog) 0 unit SUBCUT TIDWM [facility]; Protocol Last Admin: 10/06/19 06:55 Dose: Not Given Documented by: Isosorbide Mononitrate (Imdur) 15 mg PO DAILY [facility] Last Admin: 10/05/19 08:36 Dose: 15 mg Documented by: Lanolin (Lanolin Oint) 1 applic TOPICAL PRN PRN PRN Reason: DRYNESS Last Admin: 10/05/19 11:40 Dose: 1 tube Documented by: Levofloxacin (Levaquin) 500 mg PO EVERY OTHER DAY [facility]; Protocol Metoprolol Tartrate (Lopressor) 25 mg PO BID [facility] Last Admin: 10/05/19 16:55 Dose: 25 mg Documented by: Ondansetron HCl (Zofran) 4 mg IVP Q6H PRN PRN Reason: NAUSEA AND VOMITING Pantoprazole Sodium (Protonix) 40 mg PO DAILY [facility] Sevelamer Carbonate (Renvela) 800 mg PO TID [facility] Last Admin: 10/05/19 21:26 Dose: 800 mg Documented by: Sodium Bicarbonate (Sodium Bicarbonate) 650 mg PO TID [facility] Last Admin: 10/05/19 21:26 Dose: 650 mg Documented by: Vitals/I&O/Wt Last Vital Signs Temp 98.5 F 10/06/19 04:00 Pulse 79 10/06/19 04:00 Resp 16 10/06/19 04:00 BP 157/72 10/06/19 04:00 Pulse Ox 94 10/06/19 04:00 10/05/19 10/06/19 10/06/19 22:59 06:59 14:59 Intake Total 1310 / 1310 Output Total 905 / 905 800 / 1705 Balance 405 / 405 -800 / -395 Weight last 48 hrs Weight 90.31 kg Weight 88.451 kg Physical Exam Narrative: EXAM NARRATIVE: obese woman using NC02, comfortable in bed heent- nc/at, eomi, anicteric neck supple lungs -CTA b/l heart rrr, +RUCHI abd soft, bandaged, mild tenderness, nd, +BS ext -minimal b/l leg edema + ambrose w/ excellent uop neuro= a,a, o x 3, from x 4, + pulses Urinary Catheter Management^: Ambrose: Cath Placed During This Visit: yes Urethral Indwelling: Yes Reason for Continuing Indwelling Catheter: Acute Urinary Retention or Obstruction Urinary Catheter Date of Insertion: 10/01/19 Urinary Catheter Time of Insertion: 07:09 Data : 10/06/19 04:51 10/06/19 04:51 Micro: Microbiology 10/01/19 06:43 Blood Culture - Final Blood NO GROWTH AFTER 5 DAYS 10/01/19 06:43 Blood Culture - Final Blood NO GROWTH AFTER 5 DAYS 10/03/19 07:10 Urine Culture - Preliminary Urine,Clean Catch Staphylococcus species A&P Additional A&P Information 69 yr old female w/ VDRF- now extubated 1. SISSY on CKD stage 5 - She has been teetering on the edge of ESRD for some time, with baseline creatinine of 3.9mg/dL, eGFR 11 - pt is POD #1 s/p exteriorization pf PD catheter by Dr. Nicole -cr better today, q if due to fluids- monitor renal fxn and f/u w/ Dr. Tamez -good uop 2. diastolic dysfunction, LVH, normal wall motion and moderate to severe central MR. As per Dr. Varela 3. pna on vanco/ zosyn wbc improved -dose vanco, aim for trough under 19 cxr improved -pt wants to go home, possibly change to oral abx 4. anemia- low iron sat and ferritin -iv iron and epo if hgb drops under 7, may benefit from prbc tx 5. met acidosis- na bicarb 6. bone- mineral- metabolism of ckd stage 5 -hyperphosphatemia- improving on phos binder. her phos improved from 6.4 to 5.8 to 5.3- also from improving renal fxn calcitriol for pth 346 6.htn- cont norvasc 5 daily, hydralazine 25 tid, imdur 15 d, metoprolol 25 bid -no virgen-i/ arb w/ CKD stage 5 meds reviewed discussed w/ RN and pt renal okay w/ dc and outpt renal fu Attestations Medical Necessity Statement*: per hospitalist. ckd stage 5, SISSY improving. 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
[2019-10-06] MEDS: ipratropium-albuterol 3 mL Neb INHALATION ×2 (08:08→12:07)
[2019-10-06] MEDS: hyDRALAzine 25 mg Tablet PO ×2 (08:26→14:39)
[2019-10-06] MEDS: levoFLOXacin 500 mg Tablet PO (08:26)
[2019-10-06] MEDS: sodium bicarbonate 650 mg Tablet PO ×2 (08:26→14:39)
[2019-10-06] MEDS: pantoprazole DR 40 mg Tablet PO (08:26)
[2019-10-06] MEDS: calcitriol 0.25 mcg Capsule PO (08:26)
[2019-10-06] MEDS: amlodipine 5 mg Tablet PO (08:26)
[2019-10-06] MEDS: isosorbide mononitrate ER 30 mg Tablet 15 MG PO (08:26)
[2019-10-06] MEDS: metoprolol tartrate 25 mg Tablet PO (08:26)
[2019-10-06] MEDS: sevelamer 800 mg Tablet PO ×2 (08:26→14:39)
[2019-10-06] MEDS: diphenoxylate/atropine Tablet 2 TAB PO (08:26)
--- NOTE | 2019-10-06 09:14 | P.PN_ITS ---
Subjective Subjective: Interval history: POD # 1 s/p exteriorization of PD catheter, did well overnight, hydrate 100 mL urine output, will discontinue Mcginnis catheter. Blood pressure overall is better controlled though slightly hypertensive this morning. Noted drop in hemoglobin from 7.8->7.3, slight improvement in creatinine from 5-4.3. Will repeat H&H this afternoon in case of need for collins sfusion if continued drop. Patient resting quietly in bed, no apparent distress, no acute overnight events reported, no complaints, eager to go home today. Medications: Reviewed: Yes Medication Review Details: Active Medications Generic Name Dose Route Start Last Admin Trade Name Freq PRN Reason Stop Dose Admin Acetaminophen 650 mg 10/01/19 15:55 Tylenol PO Q6H PRN MILD PAIN Albuterol/Ipratrop ium 3 ml 10/01/19 09:33 Duoneb INHALATION Q6H PRN SHORTNESS OF LAVELL TH Albuterol/Ipratrop ium 3 ml 10/01/19 12:00 10/06/19 08:08 Duoneb INHALATION 3 ml QID.RESPIRATORY S [facility] Administration Amlodipine Besylat e 5 mg 10/03/19 12:40 10/06/19 08:26 Norvasc PO 5 mg DAILY [facility] Administration Calcitriol 0.25 mcg 10/04/19 09:00 10/06/19 08:26 Rocaltrol PO 0.25 mcg DAILY [facility] Administration Dextrose 25 ml 10/01/19 16:00 D50w IVP ONCE PRN hypoglycemia prot ocol Protocol Dextrose 50 ml 10/01/19 16:00 D50w IVP PRN PRN hypoglycemia prot ocol Protocol Diphenoxylate HCl/ Atropine 2 tab 10/04/19 09:30 10/06/19 08:26 Lomotil PO 2 tab DAILY [facility] Administration Epoetin Jose 10,000 unit 10/04/19 08:00 10/04/19 08:54 Procrit SUBCUT 10,000 unit WEEKLY [facility] Administration Glucagon 1 mg 10/01/19 16:00 Glucagen IM ONCE PRN Adult Acute Hypog lycemia Prot. Protocol Hydralazine HCl 10 mg 10/03/19 12:38 10/05/19 02:26 Apresoline IVP 10 mg Q4H PRN Administration elevated blood pr essure Hydralazine HCl 25 mg 10/04/19 09:00 10/06/19 08:26 Apresoline PO 25 mg TID [facility] Administration Dextrose 500 mls @ 100 mls /hr 10/01/19 16:00 D5w IV ONCE PRN Adult Acute Hypog lycemia Prot Protocol Ferric Sodium Gluc harjit 125 mg 110 mls @ 110 mls /hr 10/04/19 08:30 10/05/19 08:48 / Sodium Chlorid e IV 10/11/19 09:29 110 mls/hr Q24H [facility] Administration Insulin Aspart 0 unit 10/01/19 21:00 10/05/19 21:07 Novolog SUBCUT Not Given BEDTIME [facility] Protocol Insulin Aspart 0 unit 10/01/19 18:00 10/06/19 06:55 Novolog SUBCUT Not Given TIDWM [facility] Protocol Isosorbide Mononit rate 15 mg 10/05/19 09:00 10/06/19 08:26 Imdur PO 15 mg DAILY [facility] Administration Lanolin 1 applic 10/05/19 11:33 10/05/19 11:40 Lanolin Oint TOPICAL 1 tube PRN PRN Administration DRYNESS Levofloxacin 500 mg 10/06/19 09:00 10/06/19 08:26 Levaquin PO 500 mg EVERY OTHER DAY [facility] Administration Protocol Metoprolol Tartrat e 25 mg 10/03/19 18:00 10/06/19 08:26 Lopressor PO 25 mg BID [facility] Administration Ondansetron HCl 4 mg 10/01/19 15:55 Zofran IVP Q6H PRN NAUSEA AND VOMITI NG Pantoprazole Sodiu m 40 mg 10/06/19 09:00 10/06/19 08:26 Protonix PO 40 mg DAILY [facility] Administration Sevelamer Carbonat e 800 mg 10/04/19 09:00 10/06/19 08:26 Renvela PO 800 mg TID [facility] Administration Sodium Bicarbonate 650 mg 10/03/19 09:00 10/06/19 08:26 Sodium Bicarbona te PO 650 mg TID [facility] Administration No Known Allergies Allergy (Verified 10/03/19 14:45) Vitals/I&O/Wt Last Vital Signs Temp 97.7 F 10/06/19 07:26 Pulse 73 10/06/19 08:16 Resp 18 10/06/19 08:16 BP 181/70 10/06/19 07:26 Pulse Ox 93 10/06/19 08:16 10/05/19 10/06/19 10/06/19 22:59 06:59 14:59 Intake Total 1310 / 1310 240 / 240 Output Total 905 / 905 800 / 1705 Balance 405 / 405 -800 / -395 240 / 240 Weight last 48 hrs Weight 90.31 kg Weight 88.451 kg Physical Exam Const: COMMON NORMALS: no acute distress, patient oriented x3 and alert GENERAL APPEARANCE: comfortable; not ill appearing NUTRITIONAL APPEARANCE: overweight OTHER: -resting in bed HENMT: COMMON NORMALS: normocephalic, atraumatic and hearing grossly normal bilaterally HEAD & SCALP: normocephalic and atraumatic Eye: COMMON NORMALS: Equal, round and reactive pupils present, EOMs intact bilaterally and conjunctivae normal CONJUNCTIVA: Yes conjunctivae normal PUPIL: Yes Equal, round and reactive pupils present Neck/C-Spine: COMMON NORMALS: full ROM GENERAL: Yes normal visual inspection and Yes trachea midline Chest: CHEST: Yes Symmetrical chest wall rise Resp: COMMON NORMALS: normal respiratory effort, No retractions and No use of accessory muscles EFFORT & INSPECTION: Yes symmetric chest movement and No tachypneic AUSCULTATION: diminished lung sounds bilateral OTHER: -on RA Cardio: COMMON NORMALS: regular rate, regular rhythm, S1 normal heart sound present, S2 normal heart sound present and No murmurs present (Cardio) RATE: regular rate RHYTHM: regular rhythm HEART SOUNDS: S1 normal heart sound present and S2 normal heart sound present OTHER: -hypertensive GI: COMMON NORMALS: Normal to inspection, nondistended, normoactive bowel sounds present and Soft to palpation INSPECTION: Yes central obesity PALPATION: Yes Soft to palpation OTHER: -externalized PD catheter (RUQ); clean/intact dressing, minimal strikethrough : BLADDER/KIDNEY EXAM: Yes catheter in place Catheter type (Female): urethral Extremity: COMMON NORMALS: normal to inspection, no clubbing, cyanosis or edema and no pedal edema Neuro: COMMON NORMALS: patient oriented x3, moves all extremities, no focal motor deficits and no sensory deficits noted SENSORIUM/ORIENTATION: Yes alert Psych: COMMON NORMALS: mental status grossly normal, Normal thought process present, cooperative, normal affect and speech normal SPEECH: Yes normal speech THOUGHT PROCESS: Normal thought process present Skin: COMMON NORMALS: no rashes or lesions noted, no jaundice, no petechiae and no mottling GENERAL SKIN EXAM: no rashes or lesions noted Urinary Catheter Management^: Mcginnis: Cath Placed During This Visit: yes, but has since been removed by the nurse Urethral Indwelling: Yes Reason for Continuing Indwelling Catheter: Accurate Measurement of Urinary Output in Critically Ill Patients Urinary Catheter Date of Insertion: 10/01/19 Urinary Catheter Time of Insertion: 07:09 Date Urinary Catheter Removed: 10/06/19 Time Urinary Catheter Discontinued: 08:35 Data : 10/06/19 13:40 10/06/19 04:51 Micro: Microbiology 10/01/19 06:43 Blood Culture - Final Blood NO GROWTH AFTER 5 DAYS 10/01/19 06:43 Blood Culture - Final Blood NO GROWTH AFTER 5 DAYS 10/03/19 07:10 Urine Culture - Preliminary Urine,Clean Catch Staphylococcus species A&P Assessment and plan (1) Acute kidney injury: -SISSY on CKD stage 5 -has PD catheter in place, not used (placed on 06/2017) -Nephrology evaluation appreciated; no need for emergent dialysis currently but may need PD catheter ex-planted as may need initiation of dialysis if continued renal impairment -Surgery consult by Dr. Glez appreciated; s/p exteriorization of PD catheter (POD # 1) -continue to monitor urine output, has Mcginnis catheter; good urine output; d/c Mcginnis today -renal US unremarkable -noted bilateral renal cortical scarring, mild renal atrophy, mild bilateral perinephric fat stranding; no hydronephrosis on CT -avoid nephrotoxins, renally dose meds -follows up with Dr. Dorsey, is on renal transplant list at [facility] -renal function stable with Cr around 5; continue to monitor renal function closely -off IVF hydration Status: Acute (2) Acute and chronic respiratory failure ([id number]): -Due to significant respiratory distress patient was intubated in the field by EMS -Successfully extubated (10/01) -Imaging reviewed with noted bilateral interstitial edema/infiltrates, worse on the right. Repeat CXR unremarkable -Associated sepsis initially as noted below with significant lactic acidosis, significant leukocytosis with neutrophilic predominance, hypoxia. Sepsis resolved -off broad-spectrum IV antibiotics with vancomycin/Zosyn, both renally dosed due to underlying renal impairment -Leukocytosis resolved -Lactic acidosis is also improving -Vital signs stable though has been hypertensive, continue to monitor -IV fluid hydration discontinued -Sputum culture prelim-mixed ilan, gram stain shows moderate WBCs, few GPC -Blood cx: prelim negative -COVD-19 negative, off isolation precautions -switched to oral antibiotics with clinical improvement Status: Acute Qualifiers: Respiratory failure complication: hypoxia and hypercapnia Qualified Code(s): J96.21 - Acute and chronic respiratory failure with hypoxia; J96.22 - Acute and chronic respiratory failure with hypercapnia (3) Sepsis: -as evidenced by lactic acidosis, leukocytosis, hypoxia, SISSY Status: Resolved Qualifiers: Acute respiratory failure type: with hypoxia Sepsis acute organ dysfunction status: with acute organ dysfunction Sepsis type: sepsis due to unspecified organism Severe sepsis acute organ dysfunction type: acute respira tory failure Severe sepsis shock status: without septic shock Qualified Code(s): A41.9 - Sepsis, unspecified organism; R65.20 - Severe sepsis without septic shock; J96.01 - Acute respiratory failure with hypoxia (4) Lactic acidosis: -as noted above -improving Status: Acute (5) Metabolic acidosis: -Noted elevated anion gap metabolic acidosis likely secondary to lactic acidosis, acute infection with sepsis and renal impairment -Anion gap closed -off IVF, off vent Status: Acute (6) Non-ST elevation DC (NSTEMI): -suspect this is secondary to demand ischemia in light of acute infection with noted significant renal impairment -Echo: EF=60%, G1DD, moderate to severe MR, mild , mild pulmonary HTN, mild TR -telemetry monitoring -Cardiology consult requested Status: Acute (7) Diarrhea: -C.difficile negative, discontinue contact isolation precautions -patient reports chronic diarrhea and takes lomotil for this, resumed Status: Chronic Qualifiers: Diarrhea type: unspecified type Qualified Code(s): R19.7 - Diarrhea, unspecified (8) Elevated d-dimer: -D-dimer-2.51 -no CTA PE due to renal impairment -low suspicion for PE, V/Q scan-low probability for PE -not a good candidate for AC due to anemia -DIC panel negative Status: Acute (9) Anemia: -acute on chronic anemia of chronic disease secondary to CKD; Hg stable though low (7.8) -baseline Hg appears to be wnl based on last Hg in 2018 of 12.5 -iron very low; on IV iron and EPO -continued drop in Hg though dilutional component due to IVF -continued close monitoring of Hg Status: Acute Qualifiers: Anemia type: due to chronic kidney disease Chronic kidney disease stage: stage 5, not on chronic dialysis Qualified Code(s): N18.5 - Chronic kidney disease, stage 5; D63.1 - Anemia in chronic kidney disease (10) Hypertension: -hypertensive though BP better controlled today, continue to monitor vital signs -on oral antihypertensives (Amlodipine, Metoprolol, Imdur, Hydralazine), hydralazine PRN Status: Chronic Qualifiers: Hypertension type: essential hypertension Qualified Code(s): I10 - Essential (primary) hypertension (11) Diabetes mellitus type 2, insulin dependent: -A1c-7.0 -Accucheks, ISS, hypoglycemia precautions -consistent carb diet Status: Chronic (12) Chronic kidney disease: -as noted above Status: Chronic Qualifiers: Chronic kidney disease stage: stage 5, not on chronic dialysis Qualified Code(s): N18.5 - Chronic kidney disease, stage 5 (13) Pneumonia: -as noted above Status: Acute Qualifiers: Laterality: bilateral Lung location: lower lobe of lung Pneumonia type: due to unspecified organism Qualified Code(s): J18.9 - Pneumonia, unspecified organism (14) Congestive heart failure: -has known chronic diastolic CHF, acute exacerbation -[id number] (in background of renal impairment) -off IVF hydration -no diuretics due to SISSY -repeat Echo noted above Status: Acute Qualifiers: Heart failure chronicity: acute on chronic Heart failure type: diastolic Qualified Code(s): I50.33 - Acute on chronic diastolic (congestive) heart failure Additional A&P Information -hx of gastric bypass -transaminitis; noted LFT elevation today, previously wnl, no hepatic abnormality on imaging, -PT/OT evaluations appreciated, up with assistance, fall precautions -GI ppx with PPI -DVT ppx with SCDs, avoid AC due to anemia -Dispo: came from home -Code status: FULL code Attestations Medical Necessity Statement*: Potential discharge if no noted drop in hemoglobin. Time Spent in Patient Care: 16 - 35 minutes (>than 50% of time spent in counselling and/or direct pt care on unit) . Coding Level of Care Code Acute Rubber Compounder Mixer for Chg Fwd Exam Comprehensive Diagnoses Acute kidney injury N17.9 Acute and chronic respiratory failure ([id number]) J96.21; J96.22 Respiratory failure complication: hypoxia and hypercapnia Sepsis A41.9; R65.20; J96.01 Acute respiratory failure type: with hypoxia Sepsis acute organ dysfunction status: with acute organ dysfunction Sepsis type: sepsis due to unspecified organism Severe sepsis acute organ dysfunction type: acute respiratory failure Severe sepsis shock status: without septic shock Lactic acidosis E87.2 Metabolic acidosis E87.2 Non-ST elevation DC (NSTEMI) I21.4 Diarrhea R19.7 Diarrhea type: unspecified type Elevated d-dimer R79.89 Anemia N18.5; D63.1 Anemia type: due to chronic kidney disease Chronic kidney disease stage: stage 5, not on chronic dialysis Hypertension I10 Hypertension type: essential hypertension Diabetes mellitus type 2, insulin dependent E11.9; Z79.4 Chronic kidney disease N18.5 Chronic kidney disease stage: stage 5, not on chronic dialysis Pneumonia J18.9 Laterality: bilateral Lung location: lower lobe of lung Pneumonia type: due to unspecified organism Congestive heart failure I50.33 Heart failure chronicity: acute on chronic Heart failure type: diastolic
[2019-10-06] MEDS: ferric gluconate 125 MG in sodium chloride 0.9% (100 ml) 100 ML 110 MG IV (09:16)
--- NOTE | 2019-10-06 10:59 | PC.SOCIAL ---
IMM Update Pg 2 of IMM given and explained to patient, who verbalized understanding. Copy placed in chart and copy provided to patient.
[2019-10-06 11:50] LABS: Glucose Point of Care 104 mg/dL (70-110)
[2019-10-06 14:04] LABS: Hematocrit 26.9 % (37.0-47.0); Hemoglobin 7.4 g/dL (11.5-15.3)
--- NOTE | 2019-10-06 15:08 | P.DS_ITS ---
Discharge Providers Date of Admission: 10/01/19 09:33 Date of Discharge: October 06, 2019 Attending Provider at Admission: Lucia Hines DO Attending Provider at Discharge: Iram Sharma MD Consults: Nephrology, Surgery Primary Care Provider: Kishore Blackwood Diagnoses at Discharge Discharge Diagnosis (1) Acute kidney injury: Status: Acute Problem details: -SISSY on CKD stage 5 -has PD catheter in place, not used (placed on 06/2017) -Nephrology evaluation appreciated; no need for emergent dialysis currently but may need PD catheter ex-planted as may need initiation of dialysis if continued renal impairment -Surgery consult by Dr. Glez appreciated; s/p exteriorization of PD catheter (POD # 1) -continue to monitor urine output, has Mcginnis catheter; good urine output; d/c Mcginnis today -renal US unremarkable -noted bilateral renal cortical scarring, mild renal atrophy, mild bilateral per inephric fat stranding; no hydronephrosis on CT -avoid nephrotoxins, renally dose meds -follows up with Dr. Dorsey, is on renal transplant list at [facility] -renal function stable with Cr around 5; continue to monitor renal function closely -off IVF hydration (2) Acute and chronic respiratory failure ([id number]): Status: Resolved Problem details: -Due to significant respiratory distress patient was intubated in the field by EMS -Successfully extubated (10/01) -Imaging reviewed with noted bilateral interstitial edema/infiltrates, worse on the right. Repeat CXR unremarkable -Associated sepsis initially as noted below with significant lactic acidosis, significant leukocytosis with neutrophilic predominance, hypoxia. Sepsis resolved -off broad-spectrum IV antibiotics with vancomycin/Zosyn, both renally dosed due to underlying renal impairment -Leukocytosis resolved -Lactic acidosis is also improving -Vital signs stable though has been hypertensive, continue to monitor -IV fluid hydration discontinued -Sputum culture prelim-mixed ilan, gram stain shows moderate WBCs, few GPC -Blood cx: prelim negative -COVD-19 negative, off isolation precautions -switched to oral antibiotics with clinical improvement Qualifiers: Respiratory failure complication: hypoxia and hypercapnia Qualified Code(s): J96.21 - Acute and chronic respiratory failure with hypoxia; J96.22 - Acute and chronic respiratory failure with hypercapnia (3) Sepsis: Status: Resolved Problem details: -as evidenced by lactic acidosis, leukocytosis, hypoxia, SISSY Qualifiers: Sepsis type: sepsis due to unspecified organism Sepsis acute organ dysfunction status: with acute organ dysfunction Severe sepsis acute organ dysfunction type: acute respiratory failure Acute respiratory failure type: with hypoxia Severe sepsis shock status: without septic shock Qualified Code(s): A41.9 - Sepsis, unspecified organism; R65.20 - Severe sepsis without septic shock; J96.01 - Acute respiratory failure with hypoxia (4) Lactic acidosis: Status: Resolved Problem details: -as noted above -improving (5) Metabolic acidosis: Status: Acute Problem details: -Noted elevated anion gap metabolic acidosis likely secondary to lactic acidosis, acute infection with sepsis and renal impairment -Anion gap closed -off IVF, off vent (6) Non-ST elevation AL (NSTEMI): Status: Acute Problem details: -suspect this is secondary to demand ischemia in light of acute infection with noted significant renal impairment -Echo: EF=60%, G1DD, moderate to severe MR, mild , mild pulmonary HTN, mild TR -telemetry monitoring -Cardiology evaluation appreciated; medical management (7) Diarrhea: Status: Chronic Problem details: -C.difficile negative, discontinue contact isolation precautions -patient reports chronic diarrhea and takes lomotil for this, resumed Qualifiers: Diarrhea type: unspecified type Qualified Code(s): R19.7 - Diarrhea, unspecified (8) Elevated d-dimer: Status: Acute Problem details: -D-dimer-2.51 -no CTA PE due to renal impairment -low suspicion for PE, V/Q scan-low probability for PE -not a good candidate for AC due to anemia -DIC panel negative (9) Anemia: Status: Acute Problem details: -acute on chronic anemia of chronic disease secondary to CKD; Hg stable though low (7.8) -baseline Hg appears to be wnl based on last Hg in 2018 of 12.5 -iron very low; on IV iron and EPO -continued drop in Hg though dilutional component due to IVF -continued close monitoring of Hg Qualifiers: Anemia type: due to chronic kidney disease Chronic kidney disease stage: stage 5, not on chronic dialysis Qualified Code(s): N18.5 - Chronic kidney disease, stage 5; D63.1 - Anemia in chronic kidney disease (10) Hypertension: Status: Chronic Problem details: -hypertensive though BP better controlled today, continue to monitor vital signs -on oral antihypertensives (Amlodipine, Metoprolol, Imdur, Hydralazine), hydralazine PRN Qualifiers: Hypertension type: essential hypertension Qualified Code(s): I10 - Essential (primary) hypertension (11) Diabetes mellitus type 2, insulin dependent: Status: Chronic Problem details: -A1c-7.0 -Accucheks, ISS, hypoglycemia precautions -consistent carb diet (12) Chronic kidney disease: Status: Chronic Problem details: -as noted above Qualifiers: Chronic kidney disease stage: stage 5, not on chronic dialysis Qualified Code(s): N18.5 - Chronic kidney disease, stage 5 (13) Pneumonia: Status: Resolved Qualifiers: Pneumonia type: due to unspecified organism Laterality: bilateral Lung location: lower lobe of lung Qualified Code(s): J18.9 - Pneumonia, unspecified organism (14) Congestive heart failure: Status: Acute Problem details: -has known chronic diastolic CHF, acute exacerbation -BNP-[id number] (in background of renal impairment) -off IVF hydration -no diuretics due to SISSY -repeat Echo noted above Qualifiers: Heart failure chronicity: acute on chronic Heart failure type: d iastolic Qualified Code(s): I50.33 - Acute on chronic diastolic (congestive) heart failure Other Information Additional DC diagnoses/information: -hx of gastric bypass -transaminitis resolved; no hepatic abnormality on imaging, -PT/OT evaluations appreciated, up with assistance, fall precautions Reason for Visit Reason for Visit: Reason For Visit: RESP FAILURE Hospital Course Hospital Course: Patient was admitted to ICU due to being on mechanical ventilation, she had been intubated in the field secondary to significant acute hypoxic respiratory failure. She was started on broad-spectrum IV antibiotic treatment for coverage of pneumonia. She was initially septic as evidenced by lactic acidosis, leukocytosis, hypoxia, SISSY. She required sedation while on mechanical ventilator support. She was gradually weaned off the vent and was extubated approximately 24 to 36 hours after admission. Respiratory status continued to improve to the point where she no longer requires supplemental oxygen support. She is not oxygen dependent at baseline. D-dimer was noted to be elevated, due to renal function CTA was noted done; V/Q scan showed low probability for PE. She was not anticoagulated due to underlying anemia. She has known CKD stage V and has been following up with Dr. Dorsey. Has a PD catheter in place, placed in 2018 anticipation of need for initiation of dialysis. Renal function was closely monitored and she did require IV fluid hydration and nephrology evaluation during her hospitalization. Following discussion with Dr. Dorsey who is her outpatient electric range assembler as well as Dr. Hernandez patient agreed to exteriorization of PD catheter which Dr. Nicole performed; she is POD # 1 today. Renal function has been relatively stable, there has been no need for initiation of dialysis during her hospital stay. She will be returning to Dr. Dorsey for follow-up and PD catheter use training. With improvement in her clinical and respiratory status she has been transitioned to oral antibiotics with Levaquin which is renally dosed. Blood cultures have been negative, she tested negative for COVID-19, sputum culture has been growing mixed respiratory ilan, she has been consistently afebrile. She was noted to be significantly hypertensive with addition of oral antihypertensives per nephrology recommendations. On initial admission she had been noted to have elevated troponins which are likely related to acute hypoxic respiratory failure and underlying worsening renal impairment. Cardiology was consulted particularly in light of need for ex-plantation of PD catheter, and medical management was recommended. Blood pressures much better controlled. She is chronically anemic with an acute drop in her hemoglobin noted during her hospital stay. She has received EPO and IV iron replacement. She has not required transfusion of blood products though hemoglobin will need to be monitored closely on an outpatient basis. She had a Mcginnis catheter placed in the ER on admission with noted consistent good urinary output. This has since been discontinued and she continues to void well without difficulty. She is to continue to follow-up with her primary care provider. She is counseled on need to seek medical attention immediately should she experience worsening and persistent shortness of breath, inability to void, fever/chills, chest pain. Discharge Summary: -Patient to follow up with primary care provider within 1 week. She will need continued monitoring of hemoglobin due to anemia -Patient to continue to follow up with Dr. Dorsey Physical Exam Const: COMMON NORMALS: no acute distress, patient oriented x3 and alert GENERAL APPEARANCE: comfortable; not ill appearing NUTRITIONAL APPEARANCE: overweight ORIENTATION/CONSCIOUSNESS: Yes Other orientation findings (sedated) OTHER: -resting in bed HENMT: COMMON NORMALS: normocephalic, atraumatic and hearing grossly normal bilaterally HEAD & SCALP: normocephalic and atraumatic MOUTH: other (OGT and orally intubated; ETT-23 cm at lip) Eye: COMMON NORMALS: Equal, round and reactive pupils present, EOMs intact bilaterally and conjunctivae normal CONJUNCTIVA: Yes conjunctivae normal PUPIL: Yes Equal, round and reactive pupils present Neck/C-Spine: COMMON NORMALS: full ROM GENERAL: Yes normal visual inspection and Yes trachea midline Chest: CHEST: Yes Symmetrical chest wall rise Resp: COMMON NORMALS: normal respiratory effort, No retractions and No use of accessory muscles EFFORT & INSPECTION: Yes symmetric chest movement and No tachypneic AUSCULTATION: diminished lung sounds bilateral OTHER: -on RA Cardio: COMMON NORMALS: regular rate, regular rhythm, S1 normal heart sound present, S2 normal heart sound present and No murmurs present (Cardio) RATE: regular rate RHYTHM: regular rhythm HEART SOUNDS: S1 normal heart sound present and S2 normal heart sound present OTHER: -hypertensive GI: COMMON NORMALS: Normal to inspection, nondistended, normoactive bowel sounds present and Soft to palpation INSPECTION: Yes central obesity PALPATION: Yes Soft to palpation OTHER: -externalized PD catheter (RUQ); clean/intact dressing, minimal strikethrough : BLADDER/KIDNEY EXAM: Yes catheter in place Catheter type (Female): urethral Extremity: COMMON NORMALS: normal to inspection, no clubbing, cyanosis or edema and no pedal edema Neuro: COMMON NORMALS: patient oriented x3, moves all extremities, no focal motor deficits and no sensory deficits noted SENSORIUM/ORIENTATION: Yes alert OTHER: -sedated Psych: COMMON NORMALS: mental status grossly normal, Normal thought process present, cooperative, normal affect and speech normal SPEECH: Yes normal speech THOUGHT PROCESS: Normal thought process present OTHER: -sedated Skin: COMMON NORMALS: no rashes or lesions noted, no jaundice, no petechiae and no mottling GENERAL SKIN EXAM: no rashes or lesions noted Urinary Catheter Management^: Mcginnis: Cath Placed During This Visit: yes, but has since been removed by the nurse Urethral Indwelling: Yes Reason for Continuing Indwelling Catheter: Accurate Measurement of Urinary Output in Critically Ill Patients Urinary Catheter Date of Insertion: 10/01/19 Urinary Catheter Time of Insertion: 07:09 Date Urinary Catheter Removed: 10/06/19 Time Urinary Catheter Discontinued: 08:35 Discharge Data Data Completed and Pending: Completed Studies During Hospitalization Category Date Time Status CT chest abd pel wo con Routine Cat Scan 10/01/19 16:55 Completed CXRP [XR chest 1V portable [id number]] R outine Exams 10/04/19 07:32 Completed XR KUB portable 7 [id number] Urgent Exams 10/01/19 11:45 Completed XR chest 1V max ble [id number] Routine Exams 10/02/19 10:10 Completed XR chest 1V max ble [id number] Stat Exams 10/01/19 08:36 Completed XR chest 1V max ble [id number] Urgent Exams 10/01/19 06:35 Completed NM pul vent and p erfus* [id number] Routi ne Nuc Med 10/04/19 11:20 Completed CV echo complete* [id number] Routine Ultrasound 10/02/19 11:49 Completed US renal BI* [id number] 0 Routine Ultrasound 10/02/19 12:32 Completed Pending at discharge Category Date Time Status ES surgery / GI i mages Routine Exams 10/05/19 14:13 Ordered Arterial Blood Ga s W/O Coox Routine Lab 10/01/19 18:10 Results Complete Blood Co unt w/Auto AM LABS Lab 10/07/19 04:00 Ordered Complete Blood Co unt w/Auto AM LABS Lab 10/08/19 04:00 Ordered Complete Blood Co unt w/Auto AM LABS Lab 10/09/19 04:00 Ordered Comprehensive Met abolic Panel AM LA BS Lab 10/07/19 04:00 Ordered Comprehensive Met abolic Panel AM LA BS Lab 10/08/19 04:00 Ordered Comprehensive Met abolic Panel AM LA BS Lab 10/09/19 04:00 Ordered Magnesium AM LABS Lab 10/07/19 04:00 Ordered Magnesium AM LABS Lab 10/08/19 04:00 Ordered Magnesium AM LABS Lab 10/09/19 04:00 Ordered Phosphorus AM LAB S Lab 10/07/19 04:00 Ordered Phosphorus AM LAB S Lab 10/08/19 04:00 Ordered Phosphorus AM LAB S Lab 10/09/19 04:00 Ordered Retype for Patiet s ABO/Rh Routine Lab 10/06/19 14:25 Ordered Type and Screen R outine Lab 10/06/19 13:40 Results Urine Culture Sta t Lab 10/03/19 07:10 Results Labs from last 24 hours 10/06/19 10/06/19 10/06/19 13:40 11:37 06:17 WBC RBC Hgb 7.4 L Hct 26.9 L MCV MCH MCHC RDW Plt Count MPV Neut % (Auto) Lymph % (Auto) Marin % (Auto) Eos % (Auto) Baso % (Auto) Neut # (Auto) Lymph # (Auto) Marin # (Auto) Eos # (Auto) Baso # (Auto) Nucleated RBC % (a uto) Nucleated RBCs # Sodium Potassium Chloride Carbon Dioxide Anion Gap BUN Creatinine Glucose POC Glucose 104 121 Calculated Osmolal ity Calcium Phosphorus Magnesium Total Bilirubin AST ALT Alkaline Phosphata se Total Protein Albumin Globulin 10/06/19 10/06/19 10/05/19 04:51 04:51 21:04 WBC 8.3 RBC 2.66 L Hgb 7.3 L Hct 24.7 L MCV 92.9 MCH 27.4 L MCHC 29.6 L RDW 16.0 H Plt Count 318 MPV 9.7 Neut % (Auto) 70.7 Lymph % (Auto) 17.5 Marin % (Auto) 7.5 Eos % (Auto) 3.4 Baso % (Auto) 0.4 Neut # (Auto) 5.8 Lymph # (Auto) 1.4 Marin # (Auto) 0.6 Eos # (Auto) 0.3 Baso # (Auto) 0.0 Nucleated RBC % (a uto) 0 Nucleated RBCs # 0.0 Sodium 140 Potassium 4.7 Chloride 108 H Carbon Dioxide 18 L Anion Gap 18.7 BUN 57 H Creatinine 4.3 H Glucose 103 POC Glucose 135 Calculated Osmolal ity 289 Calcium 8.3 L Phosphorus 5.3 H Magnesium 3.0 H Total Bilirubin 0.2 AST 16 ALT 32 Alkaline Phosphata se 95 Total Protein 6.1 L Albumin 3.4 L Globulin 2.7 10/05/19 16:49 WBC RBC Hgb Hct MCV MCH MCHC RDW Plt Count MPV Neut % (Auto) Lymph % (Auto) Marin % (Auto) Eos % (Auto) Baso % (Auto) Neut # (Auto) Lymph # (Auto) Marin # (Auto) Eos # (Auto) Baso # (Auto) Nucleated RBC % (a uto) Nucleated RBCs # Sodium Potassium Chloride Carbon Dioxide Anion Gap BUN Creatinine Glucose POC Glucose 115 Calculated Osmolal ity Calcium Phosphorus Magnesium Total Bilirubin AST ALT Alkaline Phosphata se Total Protein Albumin Globulin Vitals: Last Vital Signs Temp 98.3 F 10/06/19 11:34 Pulse 76 10/06/19 12:08 Resp 20 H 10/06/19 12:08 BP 150/72 10/06/19 11:34 Pulse Ox 95 10/06/19 12:08 Discharge Plan Discharge Patient Disposition: Home, Self-Care Condition: Stable Prescriptions: New isosorbide mononitrate 30 mg Tablet Extended Release 24 Hr 15 mg PO DAILY 30 Days Qty: 15 RF: 0 diphenoxylate-atropine 2.5-0.025 mg Tablet 2 tab PO DAILY 30 Days Qty: 60 RF: 0 hydralazine 25 mg Tablet 25 mg PO TID 30 Days Qty: 90 RF: 0 amlodipine 5 mg Tablet 5 mg PO DAILY 30 Days Qty: 30 RF: 0 sodium bicarbonate 650 mg Tablet 650 mg PO TID 30 Days Qty: 90 RF: 0 levofloxacin 500 mg Tablet 500 mg PO EVERY OTHER DAY Qty: 4 RF: 0 calcitriol 0.25 mcg Capsule 0.25 mcg PO DAILY 30 Days Qty: 30 RF: 0 metoprolol tartrate 25 mg Tablet 25 mg PO BID 30 Days Qty: 60 RF: 0 sevelamer carbonate 800 mg Tablet 800 mg PO TID 30 Days Qty: 90 RF: 0 ferrous sulfate 325 mg (65 mg iron) tablet 325 mg PO BID 30 Days Qty: 60 RF: 0 Discontinued atenolol 25 mg tablet 25 mg PO DAILY RF: 0 Discharge Orders: Discharge Order (Routine); Ordered 10/06/19 Ordered By: Iram Sharma Referrals: Kishore Blackwood [Primary Care Provider] - 4-7 days (Post hospital discharge follow up. Had exteriorization of PD catheter, treated for acutely worsening CKD, to continue to follow up with Dr. Dorsey, as well as anemia that will need continued follow up. ) David Dorsey MD [Referring] - 2 weeks (Follow up for CKD stage 5; had recent exteriorization of PD catheter) Discharge Diet: Regular Discharge Activity: Increase activity as tolerated Discharge Attestations Time Spent in Discharge Care*: greater than 30 min Specific Discharge Activities: Specific discharge activities: educating patient, discussing with case liner/social workers/dc planners, documenting/other paperwork and evaluating patient/reviewing data Status at Discharge: Cognitive status at discharge: cognitively intact , Behavioral status at discharge: cooperative , Functional status at discharge: independent ambulation Overall status at discharge: patient is back to baseline Quality Metrics Clinical Quality Measures During this hospital stay, did patient experience: None Coding Level of Care Code 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 [facility] Fwd Diagnoses Acute kidney injury N17.9 Acute and chronic respiratory failure ([id number]) J96.21; J96.22 Respiratory failure complication: hypoxia and hypercapnia Sepsis A41.9; R65.20; J96.01 Sepsis type: sepsis due to unspecified organism Sepsis acute organ dysfunction status: with acute organ dysfunction Severe sepsis acute organ dysfunction type: acute respiratory failure Acute respiratory failure type: with hypoxia Severe sepsis shock status: without septic shock Lactic acidosis E87.2 Metabolic acidosis E87.2 Non-ST elevation AL (NSTEMI) I21.4 Diarrhea R19.7 Diarrhea type: unspecified type Elevated d-dimer R79.89 Anemia N18.5; D63.1 Anemia type: due to chronic kidney disease Chronic kidney disease stage: stage 5, not on chronic dialysis Hypertension I10 Hypertension type: essential hypertension Diabetes mellitus type 2, insulin dependent E11.9; Z79.4 Chronic kidney disease N18.5 Chronic kidney disease stage: stage 5, not on chronic dialysis Pneumonia J18.9 Pneumonia type: due to unspecified organism Laterality: bilateral Lung location: lower lobe of lung Congestive heart failure I50.33 Heart failure chronicity: acute on chronic Heart failure type: diastolic
--- NOTE | 2019-10-06 16:52 | PM.PN ---
Subjective Subjective: Interval history: No acute events overnight Peritoneal dialysis got exteriorized yesterday Vitals/I&O/Wt Last Vital Signs Temp 98.4 F 10/06/19 16:03 Pulse 79 10/06/19 16:03 Resp 18 10/06/19 16:03 BP 163/72 10/06/19 16:03 Pulse Ox 97 10/06/19 16:03 10/06/19 10/06/19 10/06/19 06:59 14:59 22:59 Intake Total 360 / 360 Output Total 800 / 1705 400 / 400 Balance -800 / -285 -40 / -40 Weight last 48 hrs Weight 199 lb 1.6 oz Weight 195 lb Physical Exam Narrative: EXAM NARRATIVE: Patient is conscious alert oriented X3 BMI 32 Head and neck examination PERRLA no masses no cervical lymphadenopathy no jaundice Abdomen nontender nondistended soft no organomegaly guarding or rigidity/no signs of peritonitis/PD catheter in place without complication Urinary Catheter Management^: Mcginnis: Cath Placed During This Visit: yes, but has since been removed by the nurse Urethral Indwelling: Yes Reason for Continuing Indwelling Catheter: Accurate Measurement of Urinary Output in Critically Ill Patients Urinary Catheter Date of Insertion: 10/01/19 Urinary Catheter Time of Insertion: 07:09 Date Urinary Catheter Removed: 10/06/19 Time Urinary Catheter Discontinued: 08:35 Data : 10/06/19 13:40 10/06/19 04:51 Micro: Microbiology 10/01/19 06:43 Blood Culture - Final Blood NO GROWTH AFTER 5 DAYS 10/01/19 06:43 Blood Culture - Final Blood NO GROWTH AFTER 5 DAYS 10/03/19 07:10 Urine Culture - Preliminary Urine,Clean Catch Staphylococcus species A&P Assessment and plan (1) Peritoneal dialysis catheter in place: Continue PD catheter care Please call for any questions or concerns Status: Acute Attestations Medical Necessity Statement*: Per hospitalist service Time Spent in Patient Care: (>than 50% of time spent in counselling and/or direct pt care on unit). 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
[2019-10-08 17:38] LABS: Blood Gas CCRB Time 1840; Oxygen Device VENT
== END 2019-10-06 16:55 | disposition home or self-care (01) | DRG 871 ==
LOC: ER 10:08 → ICU 10:09 → MEDSURG 10-05 19:55
PROVIDERS: Family Medicine; Internal Medicine Nephrology; Surgery; Admitting Provider Family Medicine; Family Provider Physician Assistant Medical; PCP Physician Assistant Medical; Visit Provider Family Medicine
PROC: 0JWT33Z Revision of Infusion Device in Trunk Subcutaneous Tissue and Fascia, Percutaneous Approach (ICD-10-PCS; principal; 2019-10-05 13:55)
DX: A41.9 Sepsis, unspecified organism (principal); N18.6 End stage renal disease; I50.33 Acute on chronic diastolic (congestive) heart failure; J18.9 Pneumonia, unspecified organism; J96.21 Acute and chronic respiratory failure with hypoxia; J96.22 Acute and chronic respiratory failure with hypercapnia; I21.A1 Myocardial infarction type 2; I13.2 Hypertensive heart and chronic kidney disease with heart failure and with stage 5 chronic kidney disease, or end stage renal disease; N17.9 Acute kidney failure, unspecified; E87.2 Acidosis; E11.22 Type 2 diabetes mellitus with diabetic chronic kidney disease; Z79.4 Long term (current) use of insulin; M85.80 Other specified disorders of bone density and structure, unspecified site; D63.1 Anemia in chronic kidney disease; R19.7 Diarrhea, unspecified; I27.20 Pulmonary hypertension, unspecified; I34.0 Nonrheumatic mitral (valve) insufficiency; D50.9 Iron deficiency anemia, unspecified; Z98.84 Bariatric surgery status; Z76.82 Awaiting organ transplant status; Z99.2 Dependence on renal dialysis; Z20.828 Contact with and (suspected) exposure to other viral communicable diseases; E83.39 Other disorders of phosphorus metabolism
CPT/HCPCS: 12345; 36415; 36416; 36600; 51702; 71045; 71250; 74018; 74176; 76770; 78014; 80048; 80053; 80202; 81001; 82009; 82140; 82310; 82436; 82550; 82570; 82607; 82728; 82746; 82803; 82805; 82962; 83036; 83540; 83550; 83605; 83690; 83735; 83880; 83970; 84100; 84133; 84300; 84443; 84484; 84540; 85014; 85018; 85025; 85362; 85378; 85384; 85610; 85730; 86850; 86900; 87040; 87070; 87086; 87106; 87205; 87493; 87635; 87804; 93005; 93306; 94002; 94003; 94640; 94799; 96372; 96375; 97116; 97162; 97165; 99284; A9540; A9567; C9113; J0360; J1815; J2001; J2543; J2704; J2916; J3010; J3370; J7030; J7050; Q3014; Q4081

== ENCOUNTER 2019-11-15 10:56 | Outpatient (CLI) | payer MEDICARE, OTHER, SELFPAY ==
--- NOTE | 2019-11-15 12:36 | XRR_ITS ---
PROCEDURE INFORMATION: Exam: XR Abdomen, 2 Views Exam date and time: 11/15/2019 1:00 PM Age: 69 years old Clinical indication: Condition or disease; Other: Esrd/dep on renal dialysis/pd cath obstruction; Prior surgery; Surgery type: Cath dialysis TECHNIQUE: Imaging protocol: XR of the abdomen. Views: 2 Views. COMPARISON: CR XR KUB portable [id number] 10/01/2019 12:22 PM FINDINGS: Tubes, catheters and devices: A peritoneal dialysis catheter is seen coiled within the right pelvis, similar to the previous exam. Gastrointestinal tract: There is no evidence of a bowel obstruction. A moderate amount of stool is noted in the colon. Intraperitoneal space: Normal. No free air. Organs: Cholecystectomy clips are present in the right upper quadrant. Vasculature: Atherosclerotic calcifications are noted within the aorta and its branches. Bones/joints: Unremarkable for age. XR/XR abdomen min 2V [id number] IMPRESSION: 1. No acute abnormality. 2. Chronic findings as discussed above.
== END 2019-11-15 10:57 | disposition home or self-care (01) ==
LOC: LAB 10:58
PROVIDERS: Family Provider Physician Assistant Medical; PCP Physician Assistant Medical; Visit Provider Internal Medicine Nephrology
DX: N18.6 End stage renal disease (principal); Z99.2 Dependence on renal dialysis; T85.691A Other mechanical complication of intraperitoneal dialysis catheter, initial encounter
CPT/HCPCS: 74019

== ENCOUNTER → 2021-11-14 08:40 | Outpatient (BNVA) | payer MEDICARE, OTHER, SELFPAY | PROVIDERS: Family Provider Physician Assistant Medical; PCP Physician Assistant Medical; Visit Provider Internal Medicine Cardiovascular Disease | DX: Z94.0 Kidney transplant status (principal); Z79.899 Other long term (current) drug therapy | CPT/HCPCS: 80053; 80061; 80069; 80076; 80197; 81003; 82043; 82310; 83735; 83970; 85007; 85025; 85027; 87077; 87086; 87184; 87798 ==

== ENCOUNTER → 2021-12-10 08:13 | Outpatient (BNVA) | payer MEDICARE, OTHER, SELFPAY | PROVIDERS: Family Provider Physician Assistant Medical; PCP Physician Assistant Medical; Visit Provider Internal Medicine Cardiovascular Disease | DX: Z94.0 Kidney transplant status (principal) | CPT/HCPCS: 80053; 80061; 80069; 80076; 80197; 81003; 82542; 82570; 83735; 84156; 85025; 87798 ==

== ENCOUNTER → 2022-01-10 08:23 | Outpatient (BNVA) | payer MEDICARE, OTHER, SELFPAY | PROVIDERS: Family Provider Physician Assistant Medical; PCP Nurse Practitioner; Visit Provider Internal Medicine Nephrology | DX: Z94.0 Kidney transplant status (principal); Z79.899 Other long term (current) drug therapy | CPT/HCPCS: 80053; 80197; 81000; 82310; 82570; 83735; 83970; 84156; 85025; 87077; 87086; 87184; 87798 ==

== ENCOUNTER → 2022-02-11 08:12 | Outpatient (BNVA) | payer MEDICARE, OTHER, SELFPAY | PROVIDERS: Family Provider Physician Assistant Medical; PCP Nurse Practitioner; Visit Provider Nurse Practitioner | DX: Z94.0 Kidney transplant status (principal); Z79.899 Other long term (current) drug therapy; N18.5 Chronic kidney disease, stage 5; E53.8 Deficiency of other specified B group vitamins | CPT/HCPCS: 80061; 80069; 80076; 80197; 81003; 85025; 87086 ==

== ENCOUNTER → 2022-03-12 08:18 | Outpatient (BNVA) | payer MEDICARE, OTHER, SELFPAY | PROVIDERS: Family Provider Physician Assistant Medical; PCP Nurse Practitioner; Visit Provider Nurse Practitioner | DX: N18.9 Chronic kidney disease, unspecified (principal); Z13.6 Encounter for screening for cardiovascular disorders | CPT/HCPCS: 80061; 80069; 80076; 80197; 81003; 85025 ==

== ENCOUNTER → 2022-04-11 08:19 | Outpatient (BNVA) | payer MEDICARE, OTHER, SELFPAY | PROVIDERS: Family Provider Physician Assistant Medical; PCP Nurse Practitioner; Visit Provider Nurse Practitioner | DX: N18.30 Chronic kidney disease, stage 3 unspecified (principal); E78.5 Hyperlipidemia, unspecified; N39.0 Urinary tract infection, site not specified | CPT/HCPCS: 80061; 80069; 80076; 80197; 81003; 85025; 87077; 87086; 87184 ==

== ENCOUNTER → 2022-05-14 08:24 | Outpatient (BNVA) | payer MEDICARE, OTHER, SELFPAY | PROVIDERS: Family Provider Physician Assistant Medical; PCP Nurse Practitioner; Visit Provider Registered Nurse | DX: N39.0 Urinary tract infection, site not specified (principal); I10 Essential (primary) hypertension; N18.30 Chronic kidney disease, stage 3 unspecified | CPT/HCPCS: 80061; 80069; 80076; 80197; 81000; 85025; 87086 ==

== ENCOUNTER → 2022-06-14 08:15 | Outpatient (BNVA) | payer MEDICARE, OTHER, SELFPAY | PROVIDERS: Family Provider Physician Assistant Medical; PCP Nurse Practitioner; Visit Provider Nurse Practitioner | DX: N18.30 Chronic kidney disease, stage 3 unspecified (principal); I10 Essential (primary) hypertension; N39.0 Urinary tract infection, site not specified; E53.8 Deficiency of other specified B group vitamins; N18.9 Chronic kidney disease, unspecified; Z94.0 Kidney transplant status | CPT/HCPCS: 80061; 80069; 80076; 80197; 81003; 85025; 87086 ==

== ENCOUNTER → 2022-07-11 08:14 | Outpatient (BNVA) | payer MEDICARE, OTHER, SELFPAY | PROVIDERS: Family Provider Physician Assistant Medical; PCP Nurse Practitioner; Visit Provider Nurse Practitioner | DX: I10 Essential (primary) hypertension (principal); N18.9 Chronic kidney disease, unspecified; N39.0 Urinary tract infection, site not specified; E53.8 Deficiency of other specified B group vitamins | CPT/HCPCS: 80061; 80069; 80076; 80197; 81003; 85025; 87086 ==

== ENCOUNTER → 2022-08-12 08:20 | Outpatient (BNVA) | payer MEDICARE, OTHER, SELFPAY | PROVIDERS: Family Provider Physician Assistant Medical; PCP Nurse Practitioner; Visit Provider Nurse Practitioner | DX: N17.9 Acute kidney failure, unspecified (principal); I10 Essential (primary) hypertension; N39.0 Urinary tract infection, site not specified; E53.8 Deficiency of other specified B group vitamins | CPT/HCPCS: 80061; 80069; 80076; 80197; 81003; 85025; 87086 ==

== ENCOUNTER → 2022-09-09 08:09 | Outpatient (BNVA) | payer MEDICARE, OTHER, SELFPAY | PROVIDERS: Family Provider Physician Assistant Medical; PCP Nurse Practitioner; Visit Provider Nurse Practitioner | DX: N17.9 Acute kidney failure, unspecified (principal); E78.2 Mixed hyperlipidemia; E11.22 Type 2 diabetes mellitus with diabetic chronic kidney disease; N18.30 Chronic kidney disease, stage 3 unspecified; E53.8 Deficiency of other specified B group vitamins | CPT/HCPCS: 80061; 80069; 80076; 80197; 81003; 85025 ==

== ENCOUNTER → 2022-10-08 14:49 | Outpatient (BNVA) | payer MEDICARE, OTHER, SELFPAY | PROVIDERS: Family Provider Physician Assistant Medical; PCP Nurse Practitioner; Visit Provider Nurse Practitioner Family | DX: L57.0 Actinic keratosis (principal); L82.1 Other seborrheic keratosis; L81.4 Other melanin hyperpigmentation; L85.3 Xerosis cutis; D69.2 Other nonthrombocytopenic purpura; L57.8 Other skin changes due to chronic exposure to nonionizing radiation | CPT/HCPCS: 17000; 17003; 99203 ==

== ENCOUNTER → 2022-10-10 08:10 | Outpatient (BNVA) | payer MEDICARE, OTHER, SELFPAY | PROVIDERS: Family Provider Physician Assistant Medical; PCP Nurse Practitioner; Visit Provider Nurse Practitioner | DX: N18.9 Chronic kidney disease, unspecified (principal); E78.5 Hyperlipidemia, unspecified | CPT/HCPCS: 80053; 80061; 80069; 80197; 81003; 85025 ==

== ENCOUNTER → 2022-11-11 08:11 | Outpatient (BNVA) | payer MEDICARE, OTHER, SELFPAY | PROVIDERS: Family Provider Physician Assistant Medical; PCP Nurse Practitioner; Visit Provider Nurse Practitioner | DX: N39.0 Urinary tract infection, site not specified (principal); Z94.0 Kidney transplant status; I10 Essential (primary) hypertension | CPT/HCPCS: 80053; 80061; 80197; 81003; 85025 ==

== ENCOUNTER → 2022-11-22 08:23 | Outpatient (BNVA) | payer MEDICARE, OTHER, SELFPAY | PROVIDERS: Family Provider Physician Assistant Medical; PCP Nurse Practitioner; Visit Provider Nurse Practitioner | DX: N18.9 Chronic kidney disease, unspecified (principal) | CPT/HCPCS: 80069; 80197 ==

== ENCOUNTER → 2022-12-10 08:42 | Outpatient (BNVA) | payer MEDICARE, OTHER, SELFPAY | PROVIDERS: Family Provider Physician Assistant Medical; PCP Nurse Practitioner; Visit Provider Nurse Practitioner | DX: Z94.0 Kidney transplant status (principal); N39.0 Urinary tract infection, site not specified; I10 Essential (primary) hypertension | CPT/HCPCS: 80053; 80061; 80069; 80197; 81003; 85025; 87077; 87086; 87184 ==

== ENCOUNTER → 2023-01-03 11:11 | Outpatient (BNVA) | payer MEDICARE, OTHER, SELFPAY | PROVIDERS: Family Provider Physician Assistant Medical; PCP Nurse Practitioner; Visit Provider Registered Nurse | DX: R39.9 Unspecified symptoms and signs involving the genitourinary system (principal) | CPT/HCPCS: 81000 ==

== ENCOUNTER → 2023-01-09 08:18 | Outpatient (BNVA) | payer MEDICARE, OTHER, SELFPAY | PROVIDERS: Family Provider Physician Assistant Medical; PCP Nurse Practitioner; Visit Provider Nurse Practitioner Family | DX: N18.9 Chronic kidney disease, unspecified (principal) | CPT/HCPCS: 80053; 80061; 80069; 80197; 81003; 85025 ==

== ENCOUNTER → 2023-02-11 08:10 | Outpatient (BNVA) | payer MEDICARE, OTHER, SELFPAY | PROVIDERS: Family Provider Physician Assistant Medical; PCP Nurse Practitioner; Visit Provider Nurse Practitioner Family | DX: N18.5 Chronic kidney disease, stage 5 | CPT/HCPCS: 80053; 80061; 80069; 80076; 80197; 81003; 85025; 87077; 87086; 87184 ==

== ENCOUNTER → 2023-03-12 08:12 | Outpatient (BNVA) | payer MEDICARE, OTHER, SELFPAY | PROVIDERS: Family Provider Physician Assistant Medical; PCP Nurse Practitioner; Visit Provider Nurse Practitioner Family | DX: N18.9 Chronic kidney disease, unspecified (principal); N39.0 Urinary tract infection, site not specified; I10 Essential (primary) hypertension; N18.5 Chronic kidney disease, stage 5 | CPT/HCPCS: 80061; 80069; 80076; 80197; 81000; 85025; 87077; 87086; 87184 ==

== ENCOUNTER → 2023-04-16 08:23 | Outpatient (BNVA) | payer MEDICARE, OTHER, SELFPAY | PROVIDERS: Family Provider Physician Assistant Medical; PCP Nurse Practitioner; Visit Provider Nurse Practitioner Family | DX: N18.5 Chronic kidney disease, stage 5 (principal); N39.0 Urinary tract infection, site not specified; Z94.0 Kidney transplant status; Z79.899 Other long term (current) drug therapy | CPT/HCPCS: 80053; 80061; 80069; 80197; 81003; 85025; 87077; 87086; 87184 ==

== ENCOUNTER → 2023-05-16 08:38 | Outpatient (BNVA) | payer MEDICARE, OTHER, SELFPAY | PROVIDERS: Family Provider Physician Assistant Medical; PCP Nurse Practitioner; Visit Provider Nurse Practitioner Family | DX: N39.0 Urinary tract infection, site not specified (principal); N18.9 Chronic kidney disease, unspecified | CPT/HCPCS: 80061; 80069; 80076; 80197; 81003; 85025; 87077; 87086; 87184 ==

== ENCOUNTER → 2023-06-12 08:28 | Outpatient (BNVA) | payer MEDICARE, OTHER, SELFPAY | PROVIDERS: Family Provider Physician Assistant Medical; PCP Nurse Practitioner; Visit Provider Nurse Practitioner Family | DX: N39.0 Urinary tract infection, site not specified (principal); N18.5 Chronic kidney disease, stage 5; I10 Essential (primary) hypertension | CPT/HCPCS: 80061; 80069; 80076; 80197; 81003; 85025; 87086 ==

== ENCOUNTER → 2023-06-13 09:27 | Outpatient (BNVA) | payer MEDICARE, OTHER, SELFPAY | PROVIDERS: Family Provider Physician Assistant Medical; PCP Nurse Practitioner; Visit Provider Nurse Practitioner Family | DX: E11.9 Type 2 diabetes mellitus without complications (principal); Z79.4 Long term (current) use of insulin | CPT/HCPCS: 83036 ==

== ENCOUNTER → 2023-06-16 12:00 | Outpatient (BNVA) | payer MEDICARE, OTHER, SELFPAY | PROVIDERS: Family Provider Physician Assistant Medical; PCP Nurse Practitioner Family; Visit Provider Nurse Practitioner Family | DX: E11.9 Type 2 diabetes mellitus without complications (principal); Z79.4 Long term (current) use of insulin | CPT/HCPCS: 80053 ==

== ENCOUNTER → 2023-07-11 08:31 | Outpatient (BNVA) | payer MEDICARE, OTHER, SELFPAY | PROVIDERS: Family Provider Physician Assistant Medical; PCP Nurse Practitioner; Visit Provider Nurse Practitioner Family | DX: N18.5 Chronic kidney disease, stage 5 (principal); R39.9 Unspecified symptoms and signs involving the genitourinary system | CPT/HCPCS: 80061; 80069; 80076; 80197; 81003; 85025; 87077; 87086; 87184 ==

== ENCOUNTER → 2023-07-24 13:21 | Outpatient (BNVA) | payer MEDICARE, OTHER, SELFPAY | PROVIDERS: Family Provider Physician Assistant Medical; PCP Nurse Practitioner; Visit Provider Nurse Practitioner Family | DX: N18.5 Chronic kidney disease, stage 5 (principal) | CPT/HCPCS: 80069 ==

== ENCOUNTER → 2023-08-11 08:45 | Outpatient (BNVA) | payer MEDICARE, OTHER, SELFPAY | PROVIDERS: Family Provider Physician Assistant Medical; PCP Nurse Practitioner Family; Visit Provider Nurse Practitioner Family | DX: N39.0 Urinary tract infection, site not specified (principal); N18.5 Chronic kidney disease, stage 5; E11.9 Type 2 diabetes mellitus without complications; Z79.4 Long term (current) use of insulin | CPT/HCPCS: 80061; 80069; 80076; 80197; 81003; 85025; 87086 ==

== ENCOUNTER → 2023-09-10 08:34 | Outpatient (BNVA) | payer MEDICARE, OTHER, SELFPAY | PROVIDERS: Family Provider Physician Assistant Medical; PCP Nurse Practitioner Family; Visit Provider Nurse Practitioner Family | DX: N39.0 Urinary tract infection, site not specified (principal); N18.5 Chronic kidney disease, stage 5 | CPT/HCPCS: 80061; 80069; 80076; 80197; 81003; 85025; 87077; 87086; 87184 ==

== ENCOUNTER → 2023-09-23 14:40 | Outpatient (BNVA) | payer MEDICARE, OTHER, SELFPAY | PROVIDERS: Family Provider Physician Assistant Medical; PCP Nurse Practitioner Family; Visit Provider Podiatrist Foot & Ankle Surgery | DX: L84 Corns and callosities; Z79.4 Long term (current) use of insulin; N18.5 Chronic kidney disease, stage 5; G62.9 Polyneuropathy, unspecified; E11.42 Type 2 diabetes mellitus with diabetic polyneuropathy | CPT/HCPCS: 99203 ==

== ENCOUNTER → 2023-09-24 11:40 | Outpatient (BNVA) | payer MEDICARE, OTHER, SELFPAY | PROVIDERS: Family Provider Physician Assistant Medical; PCP Nurse Practitioner Family; Visit Provider Nurse Practitioner Family | DX: N18.5 Chronic kidney disease, stage 5 (principal) | CPT/HCPCS: 81003 ==

== ENCOUNTER → 2023-10-13 08:15 | Outpatient (BNVA) | payer MEDICARE, OTHER, SELFPAY | PROVIDERS: Family Provider Physician Assistant Medical; PCP Nurse Practitioner Family; Visit Provider Nurse Practitioner Family | DX: N39.0 Urinary tract infection, site not specified (principal); N18.5 Chronic kidney disease, stage 5 | CPT/HCPCS: 80061; 80069; 80076; 80197; 81003; 85025; 87077; 87086; 87184 ==

== ENCOUNTER → 2023-10-14 09:45 | Outpatient (BNVA) | payer MEDICARE, OTHER, SELFPAY | PROVIDERS: Family Provider Physician Assistant Medical; PCP Nurse Practitioner Family; Visit Provider Nurse Practitioner Family | DX: L57.0 Actinic keratosis (principal); L57.8 Other skin changes due to chronic exposure to nonionizing radiation; L85.3 Xerosis cutis; L81.4 Other melanin hyperpigmentation; D22.5 Melanocytic nevi of trunk | CPT/HCPCS: 17000; 99213 ==

== ENCOUNTER 2023-11-06 06:00 | Outpatient (CLI) | payer MEDICARE, OTHER, SELFPAY | END 2023-11-06 23:59 | disposition home or self-care (01) | LOC: SPT 11-07 08:12 | PROVIDERS: PCP Nurse Practitioner Family; Visit Provider Podiatrist Foot & Ankle Surgery | DX: Z46.89 Encounter for fitting and adjustment of other specified devices (principal); S92.902D Unspecified fracture of left foot, subsequent encounter for fracture with routine healing; X58.XXXD Exposure to other specified factors, subsequent encounter | CPT/HCPCS: 97760; L4361 ==

== ENCOUNTER → 2023-11-06 13:09 | Outpatient (BNVA) | payer MEDICARE, OTHER, SELFPAY | PROVIDERS: Family Provider Physician Assistant Medical; PCP Nurse Practitioner Family; Visit Provider Podiatrist Foot & Ankle Surgery | DX: S99.921A Unspecified injury of right foot, initial encounter (principal); W01.0XXA Fall on same level from slipping, tripping and stumbling without subsequent striking against object, initial encounter; L84 Corns and callosities; E11.29 Type 2 diabetes mellitus with other diabetic kidney complication; E11.42 Type 2 diabetes mellitus with diabetic polyneuropathy; Z79.4 Long term (current) use of insulin; N18.5 Chronic kidney disease, stage 5; G62.9 Polyneuropathy, unspecified | CPT/HCPCS: 73630 ==

== ENCOUNTER → 2023-11-10 08:39 | Outpatient (BNVA) | payer MEDICARE, OTHER, SELFPAY | PROVIDERS: PCP Nurse Practitioner Family; Visit Provider Nurse Practitioner Family | DX: E11.9 Type 2 diabetes mellitus without complications (principal); N39.0 Urinary tract infection, site not specified; N18.5 Chronic kidney disease, stage 5; J40 Bronchitis, not specified as acute or chronic; Z78.9 Other specified health status; Z79.4 Long term (current) use of insulin | CPT/HCPCS: 80053; 80061; 80069; 80197; 81003; 82043; 85025; 87086 ==

== ENCOUNTER → 2023-11-20 09:23 | Outpatient (BNVA) | payer MEDICARE, OTHER, SELFPAY | PROVIDERS: PCP Nurse Practitioner Family; Visit Provider Nurse Practitioner Family | DX: N18.5 Chronic kidney disease, stage 5 (principal); L98.9 Disorder of the skin and subcutaneous tissue, unspecified | CPT/HCPCS: 80053; 80069 ==

== ENCOUNTER → 2023-11-27 13:46 | Outpatient (BNVA) | payer MEDICARE, OTHER, SELFPAY | PROVIDERS: PCP Nurse Practitioner Family; Visit Provider Podiatrist Foot & Ankle Surgery | DX: S92.345A Nondisplaced fracture of fourth metatarsal bone, left foot, initial encounter for closed fracture; S92.354A Nondisplaced fracture of fifth metatarsal bone, right foot, initial encounter for closed fracture; L84 Corns and callosities; E11.42 Type 2 diabetes mellitus with diabetic polyneuropathy; Z79.4 Long term (current) use of insulin; N18.5 Chronic kidney disease, stage 5; G62.9 Polyneuropathy, unspecified; W01.0XXA Fall on same level from slipping, tripping and stumbling without subsequent striking against object, initial encounter | CPT/HCPCS: 73630; 99213 ==

== ENCOUNTER → 2023-12-11 08:13 | Outpatient (BNVA) | payer MEDICARE, OTHER, SELFPAY | PROVIDERS: PCP Nurse Practitioner Family; Visit Provider Nurse Practitioner Family | DX: J40 Bronchitis, not specified as acute or chronic (principal); N39.0 Urinary tract infection, site not specified | CPT/HCPCS: 80053; 80061; 80069; 80197; 81003; 82248; 85025 ==

== ENCOUNTER → 2024-01-13 08:27 | Outpatient (BNVA) | payer MEDICARE, OTHER, SELFPAY | PROVIDERS: PCP Nurse Practitioner Family; Visit Provider Nurse Practitioner Family | DX: E11.9 Type 2 diabetes mellitus without complications (principal); N18.5 Chronic kidney disease, stage 5; N39.0 Urinary tract infection, site not specified; Z79.4 Long term (current) use of insulin | CPT/HCPCS: 80061; 80069; 80197; 81003; 82043; 82306; 82310; 83970; 85025; 87086 ==

== ENCOUNTER → 2024-02-10 08:33 | Outpatient (BNVA) | payer MEDICARE, OTHER, SELFPAY | PROVIDERS: PCP Nurse Practitioner Family; Visit Provider Nurse Practitioner Family | DX: N39.0 Urinary tract infection, site not specified (principal); N18.5 Chronic kidney disease, stage 5 | CPT/HCPCS: 80061; 80069; 80076; 80197; 81003; 82043; 82306; 82310; 83970; 85025; 87086 ==

== ENCOUNTER → 2024-03-12 08:30 | Outpatient (BNVA) | payer MEDICARE, OTHER, SELFPAY | PROVIDERS: PCP Nurse Practitioner Family; Visit Provider Nurse Practitioner Family | DX: Z94.0 Kidney transplant status (principal); E11.9 Type 2 diabetes mellitus without complications; N18.5 Chronic kidney disease, stage 5; I10 Essential (primary) hypertension; N39.0 Urinary tract infection, site not specified; Z79.4 Long term (current) use of insulin | CPT/HCPCS: 80061; 80069; 80076; 80197; 81003; 82310; 83036; 83970; 84439; 84443; 85025; 87077; 87086; 87184 ==

== ENCOUNTER → 2024-03-23 13:05 | Outpatient (BNVA) | payer MEDICARE, OTHER, SELFPAY | PROVIDERS: PCP Nurse Practitioner Family; Visit Provider Podiatrist Foot & Ankle Surgery | DX: E11.8 Type 2 diabetes mellitus with unspecified complications (principal); L84 Corns and callosities; Z79.4 Long term (current) use of insulin; N18.5 Chronic kidney disease, stage 5; G62.9 Polyneuropathy, unspecified; E11.42 Type 2 diabetes mellitus with diabetic polyneuropathy | CPT/HCPCS: 99213 ==

== ENCOUNTER → 2024-04-12 07:57 | Outpatient (BNVA) | payer MEDICARE, OTHER, SELFPAY | PROVIDERS: PCP Nurse Practitioner Family; Visit Provider Nurse Practitioner Family | DX: N39.0 Urinary tract infection, site not specified (principal); E11.9 Type 2 diabetes mellitus without complications; N18.5 Chronic kidney disease, stage 5; Z01.89 Encounter for other specified special examinations; Z79.4 Long term (current) use of insulin | CPT/HCPCS: 80061; 80069; 80076; 80197; 81003; 82043; 82306; 82310; 83970; 85025; 87086 ==

== ENCOUNTER → 2024-07-13 08:21 | Outpatient (BNVA) | payer MEDICARE, OTHER, SELFPAY | PROVIDERS: PCP Nurse Practitioner Family; Visit Provider Nurse Practitioner Family | DX: Z01.89 Encounter for other specified special examinations (principal); E11.9 Type 2 diabetes mellitus without complications; N18.5 Chronic kidney disease, stage 5; N39.0 Urinary tract infection, site not specified; Z79.4 Long term (current) use of insulin | CPT/HCPCS: 80053; 80061; 80069; 80197; 81003; 82043; 82306; 82310; 83970; 85025; 87086; 87496 ==

== ENCOUNTER → 2024-08-11 11:33 | Outpatient (BNVA) | payer MEDICARE, OTHER, SELFPAY | PROVIDERS: PCP Nurse Practitioner Family; Visit Provider Nurse Practitioner Family | DX: Z01.89 Encounter for other specified special examinations (principal); E11.9 Type 2 diabetes mellitus without complications; Z79.4 Long term (current) use of insulin; N18.5 Chronic kidney disease, stage 5; N39.0 Urinary tract infection, site not specified | CPT/HCPCS: 80061; 80069; 80197; 81003; 82043; 82306; 82310; 82977; 83615; 83970; 84450; 84460; 85025; 87086 ==

== ENCOUNTER → 2024-08-25 15:52 | Outpatient (BNVA) | payer MEDICARE, OTHER, SELFPAY | PROVIDERS: PCP Nurse Practitioner Family; Visit Provider Podiatrist Foot & Ankle Surgery | DX: E11.69 Type 2 diabetes mellitus with other specified complication (principal); Z79.4 Long term (current) use of insulin; M10.9 Gout, unspecified; G62.9 Polyneuropathy, unspecified; E11.22 Type 2 diabetes mellitus with diabetic chronic kidney disease; L84 Corns and callosities; N18.5 Chronic kidney disease, stage 5 | CPT/HCPCS: 73630; 99213 ==

== ENCOUNTER → 2024-09-13 08:19 | Outpatient (BNVA) | payer MEDICARE, OTHER, SELFPAY | PROVIDERS: PCP Nurse Practitioner Family; Visit Provider Nurse Practitioner Family | DX: M10.9 Gout, unspecified (principal); N39.0 Urinary tract infection, site not specified; N18.5 Chronic kidney disease, stage 5 | CPT/HCPCS: 80061; 80069; 80076; 80197; 81003; 82306; 82310; 83970; 84550; 85025; 87077; 87086; 87184 ==

== ENCOUNTER → 2024-12-10 08:25 | Outpatient (BNVA) | payer MEDICARE, OTHER, SELFPAY | PROVIDERS: PCP Nurse Practitioner Family; Visit Provider Nurse Practitioner Family | DX: N18.5 Chronic kidney disease, stage 5 (principal); N39.0 Urinary tract infection, site not specified | CPT/HCPCS: 80069; 80197; 81003; 85025; 87077; 87086; 87184 ==

== ENCOUNTER → 2025-01-11 08:59 | Outpatient (BNVA) | payer MEDICARE, OTHER, SELFPAY | PROVIDERS: PCP Nurse Practitioner Family; Visit Provider Nurse Practitioner Family | DX: N39.0 Urinary tract infection, site not specified (principal); N18.9 Chronic kidney disease, unspecified | CPT/HCPCS: 80069; 80197; 81003; 85025; 87086 ==

== ENCOUNTER → 2025-01-12 13:25 | Outpatient (BNVA) | payer MEDICARE, OTHER, SELFPAY | PROVIDERS: PCP Nurse Practitioner Family; Visit Provider Physician Assistant | DX: S52.502D Unspecified fracture of the lower end of left radius, subsequent encounter for closed fracture with routine healing (principal); X58.XXXD Exposure to other specified factors, subsequent encounter | CPT/HCPCS: 73110 ==

== ENCOUNTER 2025-01-12 15:01 | Outpatient (CLI) | payer MEDICARE, OTHER, SELFPAY | END 2025-01-12 15:02 | disposition home or self-care (01) | LOC: SPT 15:02 | PROVIDERS: PCP Nurse Practitioner Family; Visit Provider Physician Assistant | DX: Z46.89 Encounter for fitting and adjustment of other specified devices (principal); S52.502D Unspecified fracture of the lower end of left radius, subsequent encounter for closed fracture with routine healing; X58.XXXD Exposure to other specified factors, subsequent encounter | CPT/HCPCS: 97760; L3982 ==

== ENCOUNTER → 2025-02-08 15:00 | Outpatient (BNVA) | payer MEDICARE, OTHER, SELFPAY | PROVIDERS: PCP Nurse Practitioner Family; Visit Provider Physician Assistant | DX: S52.502D Unspecified fracture of the lower end of left radius, subsequent encounter for closed fracture with routine healing (principal); X58.XXXD Exposure to other specified factors, subsequent encounter | CPT/HCPCS: 73110; 99024; 99213 ==

== ENCOUNTER → 2025-02-14 08:35 | Outpatient (BNVA) | payer MEDICARE, OTHER, SELFPAY | PROVIDERS: PCP Nurse Practitioner Family; Visit Provider Nurse Practitioner Family | DX: N18.9 Chronic kidney disease, unspecified (principal) | CPT/HCPCS: 80061; 80069; 80076; 80197; 85025 ==

== ENCOUNTER → 2025-05-02 08:00 | Outpatient (BNVA) | payer MEDICARE, OTHER, SELFPAY | PROVIDERS: PCP Nurse Practitioner Family; Visit Provider Nurse Practitioner Family | DX: Z01.89 Encounter for other specified special examinations (principal); E78.2 Mixed hyperlipidemia; N39.0 Urinary tract infection, site not specified; N18.9 Chronic kidney disease, unspecified | CPT/HCPCS: 80061; 80069; 80076; 80197; 81003; 85025; 87086 ==